=== PATIENT | male | born 1995 | race Caucasian/White ===

== ENCOUNTER 2017-08-16 21:28 | Emergency (ER) | payer BC, SELFPAY ==
[2017-08-16 21:35] VITALS: BP 161/102; PULSE 88; RESP 16; TEMP 36.7; O2SAT 99; BMI 35.7
--- NOTE | 2017-08-16 21:43 | CT_ITS ---
CT abdomen pelvis wo con CLINICAL INDICATION: Right-sided flank pain ITS.REASON: flank pain ORDERING PHYSICIAN: Lane Wisdom MD PATIENT AGE: 21 years COMPARISON: 08/16/2016 TECHNIQUE: Axial images obtained with sagittal and coronal reformats. PROCEDURE: Oral Contrast: None IV Contrast: None . FINDINGS: There are 3 small nodular opacities in the right middle lobe measuring up to 5 mm. This area was not imaged on the previous exam. Prior cholecystectomy without ductal dilatation. The liver, spleen, adrenal glands, pancreas, kidneys, ureters, appendix, and urinary bladder are unremarkable. No evidence of obstructing renal or ureteral calculi. No intestinal obstruction or free air. Unremarkable pelvis. No evidence of acute inflammatory change or abnormal fluid collection. No acute bony anomalies. There are mild degenerative changes in the lower thoracic spine IMPRESSION: No acute intra-abdominal or pelvic findings. No evidence of obstructing renal or ureteral calculi. Unremarkable appendix
--- NOTE | 2017-08-16 21:44 | XR_ITS ---
EXAM: XR lumbar spine 2-3V HISTORY: ITS.REASON: right lower back pain ORDERING PHYSICIAN: Lane Wisdom MD PATIENT AGE: 21 years COMPARISON: None FINDINGS: Normal alignment. No fracture or dislocation. No lytic or blastic change. No significant degenerative change. The disc spaces are preserved. IMPRESSION: Negative lumbar spine
[2017-08-16 21:51] LABS: Basophils % 0.5 % (0.1-2.0); Eosinophils # 0.2 K/mm3 (0.0-0.4); Eosinophils % 2.4 % (0.1-12.0); Hematocrit 46.1 % (42.0-52.0); Hemoglobin 15.6 g/dL (14.1-18.0); Lymphocytes # 2.9 K/mm3 (0.7-4.5); Lymphocytes % 35.6 K/mm3 (10-50); Mean Corpuscular HGB Conc 33.9 g/dL (31.8-35.4); Mean Corpuscular Hemoglobin 29.6 pg (27.0-31.2); Mean Corpuscular Volume 87.1 fl (80-94); Mean Platelet Volume 10.3 fl (7.4-10.4); Monocytes # 0.5 K/mm3 (0.1-1.0); Monocytes % 5.5 % (1.7-9.3); Neutrophils # 4.6 K/mm3 (1.8-7.8); Platelet Count 256 K/mm3 (142-424); Red Cell Distribution Width 12.6 % (11.5-17.5); White Blood Count 8.1 K/mm3 (4.8-10.8)
[2017-08-16 21:52] LABS: Microscopic, Urine URINE MICROSCOPIC (MICROSCOPIC)
[2017-08-16 21:53] LABS: Appearance,Urine CLEAR (Clear); Bilirubin,Urine Negative (Negative); Blood, Urine Negative (Negative); Color,Urine YELLOW (Yellow); Glucose,Urine (UA) Negative (Negative); Ketones,Urine Negative (Negative); Leukocyte Esterase,Urine Negative (Negative); Nitrate,Urine Negative (Negative); Protein,Urine Negative (Negative); Specific Gravity, Urine 1.015 (1.005-1.030); Urobilinogen,Urine 0.2 EU/dl (0.2)
[2017-08-16 22:04] LABS: Alanine Aminotransferase 63 U/L (12-78); Albumin Level 4.2 gm/dL (3.4-5.0); Albumin/Globulin Ratio 1.2 (1.1-1.8); Alkaline Phosphatase 95 U/L (46-116); Anion Gap 11.6 mEq/L (5-15); Aspartate Amino Transferase 24 U/L (15-37); Bilirubin,Total 0.4 mg/dL (0.2-1.0); Blood Urea Nitrogen 12 mg/dL (7-18); Calcium 8.9 mg/dL (8.5-10.1); Carbon Dioxide 29 mmol/L (21.0-32.0); Chloride 101 mmol/L (98-107); Creatinine Clearance Estimated 185 mL/min (0-300); Creatinine,Serum 1.16 mg/dL (0.70-1.30); Estimated Glomerular Filt Rate 79 ml/min (>60); GFR (African American) 96 ML/MIN (>60); Globulin 3.6 gm/dl (1.3-3.2); Glucose 108 mg/dL (74-106); Potassium 3.6 mmoL/L (3.5-5.1); Sodium 138 mmol/L (136-145); Total Protein,Serum 7.8 gm/dL (6.4-8.2)
[2017-08-16 22:04] LABS: Bacteria,Urine Trace /lpf; RBC,Urine Occasional #/hpf (0-3); Squamous Epithelial Cell,Urine Occasional #/hpf (0-5); WBC,Urine Occasional #/hpf (0-3)
--- NOTE | 2017-08-16 22:04 | PC.NURSE ---
patient to radiology at this time
--- NOTE | 2017-08-16 22:14 | PC.NURSE ---
pt back from radiology
[2017-08-16 22:30] VITALS: BP 145/80; PULSE 90; RESP 18; O2SAT 100
--- NOTE | 2017-08-16 22:48 | HMH.EDBACK ---
ED Disposition Clinical Impression: Strain of lumbar region Qualifiers: Encounter type: initial encounter Qualified Code(s): S39.012A - Strain of muscle, fascia and tendon of lower back, initial encounter Disposition: Home, Self-Care Condition on Discharge: Good Instructions: DI for Low Back Pain Referrals: Miryam Vo [Primary Care Provider] - - Critical Care Critical Care Time: No Attestation: On 08/16/17, the high probability of a clinically significant, sudden or life threatening deterioration of the following system(s) required my full and direct attention, intervention and personal management. The time I documented below is in addition to time spent performing reported procedures but includes the following listed in this critical care notation. Medical Decision Making - Medical Records Medical records reviewed: Yes: I reviewed the patient's medical records. Vital Signs: 08/16/17 21:35 08/16/17 22:30 Temperature 98.1 F Temperature Source Oral Pulse Rate [Right Brachial] 88 90 Respiratory Rate 16 18 Blood Pressure [Right Arm] 161/102 145/80 Blood Pressure Mean [Right Arm] 121 101 Blood Pressure Source [Right Arm] Automatic Cuff Blood Pressure Position [Right Arm] Sitting Right Lateral 02 Sat by Pulse Oximetry 99 100 Oxygen Delivery Method Room Air Room Air - Lab Data Lab results reviewed: Yes: I reviewed the patient's lab results. Lab Results 08/16/17 21:45: WBC 8.1, RBC 5.30, Hgb 15.6, Hct 46.1, MCV 87.1, MCH 29.6, MCHC 33.9, RDW 12.6, Plt Count 256, MPV 10.3, Neut % (Auto) 56.0, Lymph % (Auto) 35.6, [place] % (Auto) 5.5, Eos % (Auto) 2.4, Baso % (Auto) 0.5, Neut # (Auto) 4.6, Lymph # (Auto) 2.9, [place] # (Auto) 0.5, Eos # (Auto) 0.2, Baso # (Auto) 0.0 08/16/17 21:45: Sodium 138, Potassium 3.6, Chloride 101, Carbon Dioxide 29, Anion Gap 11.6, BUN 12, Creatinine 1.16, Estimated Creat Clear 185, Estimated GFR 79, Est GFR ( Amer) 96, Glucose 108 H, Calcium 8.9, Total Bilirubin 0.4, AST 24, ALT 63, Alkaline Phosphatase 95, Total Protein 7.8, Albumin 4.2, Globulin 3.6 H, Albumin/Globulin Ratio 1.2 08/16/17 21:50: Urine Color Yellow, Urine Appearance Clear, Urine pH 7.0, Ur Specific [place] 1.015, Urine Protein Negative, Urine Glucose (UA) Negative, Urine Ketones Negative, Urine Blood Negative, Urine Nitrate Negative, Urine Bilirubin Negative, Urine Urobilinogen 0.2, Ur Leukocyte Esterase Negative, Urine RBC Occasional, Urine WBC Occasional, Ur Squamous Epith Cells Occasional, Urine Bacteria Trace Result diagrams: 08/16/17 21:45 08/16/17 21:45 Orders (Tests/Meds): ORDERS Category Date Time Status CT abdomen pelvis wo con Stat Cat Scan 08/16/17 21:43 Taken Lumbar spine XR 2-3 views [XR lumbar spine 2-3V] Stat Exams 08/16/17 21:44 Taken - CT Data CT Scan: Abdomen, Pelvis Time Received: 22:[address] Reviewed: Yes: I have viewed the radiologist's interpretation Preliminary Findings: Normal/NAD - Ankit Inquiry Pt receiving controlled substance: No Back Pain HPI - General Chief Complaint: Back Pain/Injury Stated Complaint: pain lower right side back Time Seen by Provider: 08/16/17 22:48 Mode of Arrival: Ambulatory Source of Information: Patient, Parent(s), Medical Record Limitations: No Limitations Description of Symptoms (Recalled from ER Triage Doc. by RN): reports pain in the right lower side of back. denies any injury, reports he was sitting at his desk at work when the pain started this afternoon, reports it as sharp and stabbing. denies any other symptoms. - History of Present Illness HPI Narrative: acute onset of rt flank pain MD Complaint: back pain Onset (ago): hour(s) Duration: now resolved Similar Symptoms Previously: No Location: lumbar spine Severity: moderate Quality: sharp Context: unknown - Related Data Home Medications Medication Instructions Recorded Confirmed Lisinopril/Hydrochlorothiazide 1 tab PO DAILY 08/16/17 08/16/17 [Lisinopril
--- NOTE | 2017-08-16 22:55 | ED_ITS ---
ED Disposition Clinical Impression: Strain of lumbar region Qualifiers: Encounter type: initial encounter Qualified Code(s): S39.012A - Strain of muscle, fascia and tendon of lower back, initial encounter Disposition: Home, Self-Care Condition on Discharge: Good Instructions: DI for Low Back Pain Referrals: Miryam Vo [Primary Care Provider] - - Critical Care Critical Care Time: No Attestation: On 08/16/17, the high probability of a clinically significant, sudden or life threatening deterioration of the following system(s) required my full and direct attention, intervention and personal management. The time I documented below is in addition to time spent performing reported procedures but includes the following listed in this critical care notation. Medical Decision Making - Medical Records Medical records reviewed: Yes: I reviewed the patient's medical records. Vital Signs: 08/16/17 21:35 08/16/17 22:30 Temperature 98.1 F Temperature Source Oral Pulse Rate [Right Brachial] 88 90 Respiratory Rate 16 18 Blood Pressure [Right Arm] 161/102 145/80 Blood Pressure Mean [Right Arm] 121 101 Blood Pressure Source [Right Arm] Automatic Cuff Blood Pressure Position [Right Arm] Sitting Right Lateral 02 Sat by Pulse Oximetry 99 100 Oxygen Delivery Method Room Air Room Air - Lab Data Lab results reviewed: Yes: I reviewed the patient's lab results. Lab Results 08/16/17 21:45: WBC 8.1, RBC 5.30, Hgb 15.6, Hct 46.1, MCV 87.1, MCH 29.6, MCHC 33.9, RDW 12.6, Plt Count 256, MPV 10.3, Neut % (Auto) 56.0, Lymph % (Auto) 35.6 , [place] % (Auto) 5.5, Eos % (Auto) 2.4, Baso % (Auto) 0.5, Neut # (Auto) 4.6, Lymph # (Auto) 2.9, [place] # (Auto) 0.5, Eos # (Auto) 0.2, Baso # (Auto) 0.0 08/16/17 21:45: Sodium 138, Potassium 3.6, Chloride 101, Carbon Dioxide 29, Anion Gap 11.6, BUN 12, Creatinine 1.16, Estimated Creat Clear 185, Estimated GFR 79, Est GFR ( Amer) 96, Glucose 108 H, Calcium 8.9, Total Bilirubin 0.4, AST 24, ALT 63, Alkaline Phosphatase 95, Total Protein 7.8, Albumin 4.2, Globulin 3.6 H, Albumin/Globulin Ratio 1.2 08/16/17 21:50: Urine Color Yellow, Urine Appearance Clear, Urine pH 7.0, Ur Specific [place] 1.015, Urine Protein Negative, Urine Glucose (UA) Negative, Urine Ketones Negative, Urine Blood Negative, Urine Nitrate Negative, Urine Bilirubin Negative, Urine Urobilinogen 0.2, Ur Leukocyte Esterase Negative, Urine RBC Occasional, Urine WBC Occasional, Ur Squamous Epith Cells Occasional, Urine Bacteria Trace Result diagrams: 08/16/17 21:45 08/16/17 21:45 Orders (Tests/Meds): ORDERS Category Date Time Status CT abdomen pelvis wo con Stat Cat Scan 08/16/17 21:43 Taken Lumbar spine XR 2-3 views [XR lumbar spine 2-3V] Stat Exams 08/16/17 21:44 Taken - CT Data CT Scan: Abdomen, Pelvis Time Received: 22:[address] Reviewed: Yes: I have viewed the radiologist's interpretation Preliminary Findings: Normal/NAD - Ankit Inquiry Pt receiving controlled substance: No Back Pain HPI - General Chief Complaint: Back Pain/Injury Stated Complaint: pain lower right side back Time Seen by Provider: 08/16/17 22:48 Mode of Arrival: Ambulatory Source of Information: Patient, Parent(s), Medical Record Limitations: No Limitations Description of Symptoms (Recalled from ER Triage Doc. by RN): reports pain in the right lower side of back. denies any injury, reports he was sitting at his
[2017-08-16 22:56] VITALS: BP 161/92; PULSE 89; RESP 14; TEMP 36.6; O2SAT 99
== END 2017-08-16 23:02 | disposition home or self-care (01) ==
PROVIDERS: Emergency Provider Emergency Medicine; Family Provider Internal Medicine Adolescent Medicine; PCP Nurse Practitioner Family
DX: S39.012A Strain of muscle, fascia and tendon of lower back, initial encounter (principal); F17.210 Nicotine dependence, cigarettes, uncomplicated
CPT/HCPCS: 72100; 74176; 80053; 81001; 85025; 99283

== ENCOUNTER → 2017-09-12 18:47 | Outpatient (CLI) | payer BC, SELFPAY | PROVIDERS: PCP Nurse Practitioner Family; Visit Provider Nurse Practitioner Family | DX: R00.2 Palpitations (principal); I10 Essential (primary) hypertension | CPT/HCPCS: 93225; 93226 ==

== ENCOUNTER 2018-08-28 10:58 | Outpatient (RCR) | payer SELFPAY ==
--- NOTE | 2018-08-28 11:40 | HMH.OTOPEV ---
OT Inpatient Evaluation Rehab OT Outpatient Eval Start: 08/28/18 11:25 Freq: Status: Active Protocol: Document 08/28/18 11:26 TFRY (Rec: 08/28/18 11:40 TFRY [id number]) Electronically Signed By Jesusita Michaels OT 08/28/18 11:26 Outpatient Therapy Subjective History Subjective History Patient seen this date for skilled occupational therapy evaluation. Patient referred to occupational therapy as patient is status post right shoulder dislocation (3rd dislocation). Referred for ROM/stretching and scapular stabilization for a home program. Chief Complaint Pain Other Symptom Type Ache Dull Symptoms Relieved By Rest/Positioning Symptoms Aggravated By Physical Activity Prior Functional Limitations None Current Functional Limitations Reaching Lifting Housework Dressing Symptom Description Activity Dependent Level of pain today (0-10) 0 Pain scale - at its best (0-10) 0 Pain scale - at its worst (0-10) 4 Shoulder/Elbow Eval Shoulder Objective Measurements Shoulder ROM Right Shoulder Flexion Active Range of Motion 160 (degrees) Query Text: Shoulder Internal Rotation Active Range WFL in gravity elim of Motion (degrees) decreased ROM shoulder exam standard right Shoulder MMT Shoulder Strength Reason Not Measured Orthopedic Precautions Elbow Objective Measurements OT Outpatient Assessment Impairments Problems/Impairments Impaired Range of Motion Impaired Strength Impaired Lifting Impaired Dressing Impaired Shower/Bathing Impaired Household Care Impaired Recreational Activities Subjective C/O Pain Prognosis Rehab Potential Fair Comment Order for HEP only Clinical Impression Consistent with Diagnosis Yes Short Term Goals Number of Weeks 0 Skilled Nursing Goals Number of Weeks 0 Outpatient Therapy Plan of Care Treatment Plan May Include Therapeutic Exercise Including Home Yes Exercise Program Frequency Times per week 1 Duration Number of Weeks
== END 2018-08-30 09:00 | disposition home or self-care (01) ==
LOC: OT 10:58
PROVIDERS: Visit Provider Orthopaedic Surgery
DX: M24.411 Recurrent dislocation, right shoulder (principal)
CPT/HCPCS: 97110; 97165

== ENCOUNTER → 2018-09-06 12:57 | Outpatient (CLI) | payer OTHER, SELFPAY ==
--- NOTE | 2018-09-06 13:17 | IR_ITS ---
MR shoulder RT w con, IR arthrogram shoulder RT HISTORY:Recurrent dislocation, pain, limited range of motion ITS.REASON: Dislocation ORDERING PHYSICIAN: Lucy Downs MD PATIENT AGE: 23 years Comparison: None TECHNIQUE: Following obtaining informed consent and timeout procedure using fluoroscopic guidance, 22-gauge spinal needle was inserted into the right shoulder joint via the anterior approach. Approximately 15 mL's of a mixture of gadolinium, Optiray 320, and lidocaine was injected under fluoroscopy. The patient tolerated the procedure well without evidence of immediate complication. Patient was then sent to the MRI suite where routine arthrographic images were obtained. FINDINGS: Arthrogram: The arthrogram images have an unremarkable appearance. There is normal localization of contrast. No contrast in the subacromial region that would indicate rotator cuff tear. No evidence of adhesive capsulitis. MRI arthrogram: No evidence of rotator cuff tear. No subacromial stenosis. The supraspinatus, infraspinatus, subscapularis, and teres minor have an unremarkable appearance. There is a Hill-Sachs deformity along the posterior superolateral aspect of the humeral head. The bicipital tendon is in place. No obvious labral tear or [place] lesion. There is slight increase signal intensity within the posterior labrum superiorly however, this does not appear to represent a complete defect and is of questionable clinical significance. The superior glenohumeral ligament is not readily identified and suspected to be torn. IMPRESSION: 1. There is a Hill-Sachs deformity of the posterior superior lateral humeral head consistent with patient's prior history of dislocation. 2. No obvious labral tear or [place] lesion. 3. No evidence of rotator cuff tear 4. Possible tear of the superior glenohumeral ligament
== END ==
PROVIDERS: PCP Nurse Practitioner Family; Visit Provider Orthopaedic Surgery
DX: M24.419 Recurrent dislocation, unspecified shoulder (principal)
CPT/HCPCS: 73040; 73222; Q9967

== ENCOUNTER → 2018-09-29 09:15 | Outpatient (CLI) | payer OTHER, SELFPAY ==
[2018-09-29 09:56] LABS: Basophils # 0.1 K/mm3 (0-0.2); Eosinophils # 0.2 K/mm3 (0.0-0.4); Eosinophils % 2.1 % (0.1-12.0); Hemoglobin 15.3 g/dL (14.1-18.0); Lymphocytes # 2.8 K/mm3 (0.7-4.5); Lymphocytes % 32.1 % (10-50); Mean Corpuscular HGB Conc 33.9 g/dL (31.8-35.4); Mean Corpuscular Hemoglobin 28.1 pg (27.0-31.2); Mean Corpuscular Volume 82.7 fl (80-94); Mean Platelet Volume 9.8 fl (7.4-10.4); Monocytes # 0.6 K/mm3 (0.1-1.0); Monocytes % 6.5 % (1.7-9.3); Neutrophils # 5.1 K/mm3 (1.8-7.8); Neutrophils % 58.4 % (37.0-80.0); Platelet Count 303 K/mm3 (142-424); Red Blood Count 5.44 M/mm3 (4.60-6.20); Red Cell Distribution Width 13.5 % (11.5-17.5); White Blood Count 8.6 K/mm3 (4.8-10.8)
[2018-09-29 14:37] LABS: Alanine Aminotransferase 77 U/L (12-78); Albumin Level 4.5 gm/dL (3.4-5.0); Albumin/Globulin Ratio 1.4 (1.1-1.8); Anion Gap 12.4 mEq/L (5-15); Aspartate Amino Transferase 37 U/L (15-37); Bilirubin,Total 0.7 mg/dL (0.2-1.0); Blood Urea Nitrogen 11 mg/dL (7-18); Calcium 9.6 mg/dL (8.5-10.1); Carbon Dioxide 30 mmol/L (21.0-32.0); Chloride 102 mmol/L (98-107); Creatinine,Serum 1.02 mg/dL (0.70-1.30); Estimated Glomerular Filt Rate 91 ml/min (>60); GFR (African American) 110 ML/MIN (>60); Globulin 3.3 gm/dl (1.3-3.2); Glucose 81 mg/dL (74-106); Potassium 4.4 mmoL/L (3.5-5.1); Sodium 140 mmol/L (136-145); Total Protein,Serum 7.8 gm/dL (6.4-8.2)
[2018-09-29 14:47] LABS: Alkaline Phosphatase 88 U/L (46-116)
== END ==
PROVIDERS: Visit Provider Orthopaedic Surgery
DX: S49.91XA Unspecified injury of right shoulder and upper arm, initial encounter (principal)
CPT/HCPCS: 36415; 80053; 85025

== ENCOUNTER 2018-11-13 07:00 | Outpatient (RCR) | payer SELFPAY ==
--- NOTE | 2018-10-16 08:02 | HMH.OTOPEV ---
OT Inpatient Evaluation Rehab OT Outpatient Eval Start: 10/16/18 07:41 Freq: Status: Active Protocol: Document 10/16/18 07:42 TFRY (Rec: 10/16/18 08:01 TFRY [id number]) Electronically Signed By Jesusita Michaels, OT 10/16/18 07:42 Outpatient Therapy Subjective History Subjective History This is a 23 year old right handed male referred to occupational therapy as patient is status post right shoulder anterior labral repair and capsulorrhaphy on . Patient stated that he had multiple dislocations prior to having surgery. Chief Complaint Pain,Stiff Symptom Type Sharp Symptoms Relieved By Rest/Positioning Symptoms Aggravated By Physical Activity Prior Functional Limitations Reaching,Lifting,Housework Current Functional Limitations Reaching,Dressing,Driving Symptom Description Activity Dependent Level of pain today (0-10) 0 Pain scale - at its best (0-10) 0 Pain scale - at its worst (0-10) 5 Shoulder/Elbow Eval Shoulder Objective Measurements Palpation Tenderness tenderness shoulder exam standard right Shoulder Palpation Findings Tenderness swelling shoulder exam standard right Shoulder ROM Right Shoulder ROM Limitations Pain Shoulder Abduction Passive Range of 140 Motion (degrees) Shoulder Flexion Passive Range of Motion 140 (degrees) Shoulder External Rotation Passive Range 10 of Motion (degrees) Shoulder Internal Rotation Passive Range 65 of Motion (degrees) pain with passive ROM shoulder exam right standard decreased ROM shoulder exam standard right Shoulder MMT Shoulder Strength Reason Not Measured Orthopedic Precautions Elbow Objective Measurements OT Outpatient Assessment Impairments Problems/Impairments Palpation Tenderness,Impaired Range of Motion,Impaired Strength,Impaired Lifting, Impaired Dressing,Impaired Shower/Bathing,Impaired Household Care,Subjective C/O Pain Prognosis Rehab Potential Good Clinical Impression Consistent with Diagnosis Yes Short Term Goals Number of Weeks 3 Decreased Palpation Tenderness Yes: right shoulder Increase Range of Motion Yes: Right Shoulder PROM WFL except ER to 30 Increase Strength Yes: Right Shoulder Strength - 3/5 Imp
== END 2018-12-11 07:30 | disposition home or self-care (01) ==
LOC: OT 07:00
PROVIDERS: Visit Provider Orthopaedic Surgery
DX: M24.411 Recurrent dislocation, right shoulder (principal)
CPT/HCPCS: 97110; 97140; 97165

== ENCOUNTER 2020-08-09 13:47 | Emergency (ER) | payer OTHER, SELFPAY ==
[2020-08-09 13:50] VITALS: BP 147/87; PULSE 80; RESP 20; TEMP 36.6; O2SAT 99; BMI 33.7
--- NOTE | 2020-08-09 13:58 | XR_ITS ---
PROCEDURE: XR FOREARM LT 2V CLINICAL INDICATION: FALL Posttraumatic pain COMPARISON: CR XR WRIST LT MIN 3V from 08/09/2020 FINDINGS: No fracture or dislocation. No lytic or blastic change. There is normal mineralization. The joint spaces are well-preserved. No significant degenerative/arthritic changes. No erosive changes evident. Other findings:Ulnar minus variant IMPRESSION: No acute findings. Dictated by: Ghassan Rhodes MD 08/10/2020 07:34 Ghassan Rhodes MD in [place] 08/10/2020 07:34
--- NOTE | 2020-08-09 14:30 | HMH.EDUTC ---
[facility] [place] Disposition Clinical Impression: Left wrist sprain Qualifiers: Encounter type: initial encounter Qualified Code(s): S63.502A - Unspecified sprain of left wrist, initial encounter Disposition: Home, Self-Care Condition on Discharge: Good Instructions: DI for Wrist Sprain Additional Instructions: ice elevate splint follow up with otho tylenol or motrin as needed follow up with pcp Referrals: Miryam Vo [Primary Care Provider] - Elmer Sprague MD [Staff Physician] - Time of Disposition: 14:36 Medical Decision Making - Ankit Inquiry Pt receiving controlled substance: No Vital Signs: 08/09/20 13:50 Temperature 97.8 F Temperature Source Oral Pulse Rate [Right Brachial] 80 Respiratory Rate 20 Blood Pressure [Right Arm] 147/87 H Blood Pressure Mean [Right Arm] 107 Blood Pressure Source [Right Arm] Automatic Cuff Blood Pressure Position [Right Arm] Sitting 02 Sat by Pulse Oximetry 99 Oxygen Delivery Method Room Air Orders (Tests/Meds): ORDERS Category Date Time Status XR forearm LT 2V Stat Exams 08/09/20 13:58 Taken XR wrist LT min 3V Stat Exams 08/09/20 13:58 Taken [facility] [place] HPI - General Chief complaint: Urgent Treatment Center Stated complaint: [id number] left wrist,fall while eating Time Seen by Provider: 08/09/20 14:30 Mode of Arrival: Ambulatory Source of Information: Patient Limitations: No Limitations Description of Symptoms (Recalled from Triage Doc. by RN): PATIENT C/O INJURY TO LEFT FOREARM/WRIST AREA AFTER SLIPPING AND FALLING TODAY APPROX 1300. STATES PREVIOUS FRACTURE TO AREA HEENT Symptoms (Recalled from RN notes): No Resp Symptoms (Recalled from RN notes): No Skin Symptoms (Recalled from RN notes): No MS Symptoms (Recalled from RN notes): Yes Functional Status (Recalled from RN notes): WNL - History of Present Illness Provider Complaint: 24 yr old male presents for left wrist pain after slipping and falling today. pt states previous fx. - Related Data Home Medications Medication Instructions Recorded Confirmed Lisinopril/Hydrochlorothiazide 1 tab PO DAILY 08/16/17 11/03/18 [Lisinopril-Hctz 20-12.5 mg Tab] Amlodipine Besylate 5 mg PO DAILY 07/17/18 11/03/18 Fluoxetine HCl [Prozac 20mg 20 mg PO DAILY 07/17/18 11/03/18 Capsule] Metoprolol Succinate 50 mg PO DAILY 07/17/18 11/03/18 Previous Rx's Medication Instructions Recorded clindamycin HCL [Clindamycin HCl 300 mg PO Q6 7 Days #28 cap 08/29/19 300mg Cap] Allergies Allergy/AdvReac Type Severity Reaction Status Date / Time No Known Allergies Allergy Verified 11/03/18 13:31 - Worker's Comp Is this a Worker's Comp case?: No [facility] History - Hepatitis A Screen Drug use history?: No High risk sexual behaviors?: No History of sexually transmitted infection?: No Currently employed?: No Childcare worker?: No Do you have indoor plumbing?: Yes Do you have electricity?: Yes Attestation statement:: This patient has been screened for Hepatitis A risk factors. I have reviewed the patient's past medical history: Yes Medical History: Reports:: Anxiety, Depression, Hypertension Denies:: Cancer, Diabetes Mellitus Type 1, Diabetes Mellitus Type 2, Internal Pacemaker, MRSA, Seizures Other Medical History: Denies: Blood Transfusion Reaction Laterality Cases: Bilateral: Myringotomy (Ear Tubes), Tonsillectomy Other Surgeries: Yes: Cholecystectomy. No: Pacemaker Amputation: No Fractures: Yes (left wrist) - Social History Smoking Status: Current every day smoker Tobacco Type: cigarettes # Packs/Day (cigarettes): 1 Alcohol Intake: never Occupational Status: other Housing: house Household Members: spouse, children - Psychiatric History Pschychiatric History:: Reports:: Anxiety, Depression Family Hx:: Hypertension ROS Obtained: Yes Systems reviewed as appropriate & no additional complaints - Constitutional Constitutional: Reports system reviewed and no additional complaints,
[2020-08-09 14:37] VITALS: BP 147/87; PULSE 80; RESP 20; TEMP 36.6; O2SAT 99
== END 2020-08-09 14:40 | disposition home or self-care (01) ==
PROVIDERS: Emergency Provider Nurse Practitioner Family; PCP Nurse Practitioner Family
DX: S63.502A Unspecified sprain of left wrist, initial encounter (principal); W01.0XXA Fall on same level from slipping, tripping and stumbling without subsequent striking against object, initial encounter; Y92.9 Unspecified place or not applicable; I10 Essential (primary) hypertension; F41.8 Other specified anxiety disorders; F17.210 Nicotine dependence, cigarettes, uncomplicated; Z79.899 Other long term (current) drug therapy
CPT/HCPCS: 73090; 73110; 99202; G0463

== ENCOUNTER → 2020-08-18 14:48 | Outpatient (CLI) | payer OTHER, SELFPAY ==
--- NOTE | 2020-08-18 14:51 | XR_ITS ---
PROCEDURE: XR WRIST LT MIN 3V CLINICAL INDICATION: LT wrist pain COMPARISON: CR XR WRIST LT MIN 3V from 08/09/2020 FINDINGS: No fracture or dislocation. No lytic or blastic change. There is normal mineralization. The joint spaces are well-preserved. No significant degenerative/arthritic changes. No erosive changes evident. Other findings:None. IMPRESSION: No acute findings. Dictated by: Ghassan Rhodes MD 08/18/2020 15:40 Ghassan Rhodes MD in [place] 08/18/2020 15:41
== END ==
PROVIDERS: PCP Nurse Practitioner Family; Visit Provider Orthopaedic Surgery
DX: M25.532 Pain in left wrist (principal)
CPT/HCPCS: 73110

== ENCOUNTER → 2020-12-01 17:46 | Outpatient (CLI) | payer OTHER, SELFPAY ==
[2020-12-01 19:05] LABS: Alanine Aminotransferase 43 U/L (12-78); Albumin Level 4.9 g/dl (3.5-5.0); Albumin/Globulin Ratio 1.8 (1.1-1.8); Alkaline Phosphatase 74 U/L (38-126); Anion Gap 15.4 mEq/L (5-15); Aspartate Amino Transferase 38 U/L (17-59); Bilirubin,Total 1.1 mg/dl (0.2-1.3); Blood Urea Nitrogen 11 mg/dl (9-20); Calcium 9.5 mg/dl (8.4-10.2); Carbon Dioxide 31 mmol/L (22.0-30.0); Chloride 100 mmol/L (98-107); Estimated Glomerular Filt Rate 103 ml/min (>60); GFR (African American) 124 ML/MIN (>60); Globulin 2.7 g/dL (1.3-3.2); Glucose 60 mg/dl (74-100); Potassium 4.4 mmoL/L (3.5-5.1); Sodium 142 mmol/L (136-145); Total Protein,Serum 7.6 g/dl (6.3-8.2)
[2020-12-01 19:32] LABS: Thyroid Stimulating Hormone 2.25 uIU/mL (0.465-4.68)
== END ==
PROVIDERS: Visit Provider Internal Medicine Adolescent Medicine
DX: E16.2 Hypoglycemia, unspecified (principal); I10 Essential (primary) hypertension
CPT/HCPCS: 80053; 83036; 84443

== ENCOUNTER 2021-04-26 20:24 | Emergency (ER) | payer OTHER, SELFPAY ==
[2021-04-26 20:21] VITALS: BP 133/90; PULSE 87; RESP 18; TEMP 36.8; O2SAT 98; BMI 34.9
--- NOTE | 2021-04-26 20:28 | CT_ITS ---
PROCEDURE INFORMATION: Exam: CT Abdomen And Pelvis With Contrast Exam date and time: 04/26/2021 8:28 PM Age: 25 years old Clinical indication: Abdominal pain; Localized; Right lower quadrant (rlq); Prior surgery; Surgery date: 6+ months; Surgery type: Gb; Additional info: Abdominal pain RT low quad TECHNIQUE: Imaging protocol: Computed tomography of the abdomen and pelvis with contrast. Radiation optimization: All CT scans at this facility use at least one of these dose optimization techniques: automated exposure control; mA and/or kV adjustment per patient size (includes targeted exams where dose is matched to clinical indication); or iterative reconstruction. Contrast material: ISOVUE; Contrast volume: 75 ml; Contrast route: IV; COMPARISON: ABDPELWO CT abdomen pelvis wo con 08/16/2017 10:02 PM FINDINGS: Liver: Normal. No mass. Gallbladder and bile ducts: Cholecystectomy. Pancreas: Normal. No ductal dilation. Spleen: Normal. No splenomegaly. Adrenal glands: Normal. No mass. Kidneys and ureters: Normal. No hydronephrosis. Stomach and bowel: Unremarkable. No obstruction. No mucosal thickening. Appendix: Normal appendix. Intraperitoneal space: Unremarkable. No free air. No significant fluid collection. Vasculature: Unremarkable. No abdominal aortic aneurysm. Lymph nodes: Unremarkable. No enlarged lymph nodes. Urinary bladder: Unremarkable as visualized. Reproductive: Unremarkable as visualized. Bones/joints: Unremarkable. No acute fracture. Soft tissues: Unremarkable. IMPRESSION: No acute findings.
[2021-04-26 20:34] LABS: Microscopic, Urine URINE MICROSCOPIC (MICROSCOPIC)
[2021-04-26 20:41] LABS: Chloride 105 mmol/L (98-107); Potassium 3.7 mmoL/L (3.5-5.1); Sodium 141 mmol/L (136-145)
[2021-04-26 20:42] LABS: Basophils # 0.1 K/mm3 (0-0.2); Basophils % 1.3 % (0.1-2.0); Eosinophils # 0.2 K/mm3 (0.0-0.4); Eosinophils % 2.9 % (0.1-12.0); Hematocrit 44.9 % (42.0-52.0); Hemoglobin 15.5 g/dL (14.1-18.0); Lymphocytes # 2.3 K/mm3 (0.7-4.5); Lymphocytes % 31.4 % (10-50); Mean Corpuscular HGB Conc 34.4 g/dL (31.8-35.4); Mean Corpuscular Hemoglobin 29.5 pg (27.0-31.2); Mean Corpuscular Volume 85.6 fl (80-94); Mean Platelet Volume 10.2 fl (7.4-10.4); Monocytes # 0.5 K/mm3 (0.1-1.0); Monocytes % 6.8 % (1.7-9.3); Neutrophils # 4.2 K/mm3 (1.8-7.8); Neutrophils % 57.5 % (37.0-80.0); Platelet Count 274 K/mm3 (142-424); Red Blood Count 5.24 M/mm3 (4.60-6.20); Red Cell Distribution Width 13.1 % (11.5-17.5); White Blood Count 7.4 K/mm3 (4.8-10.8)
[2021-04-26 20:43] LABS: Blood Urea Nitrogen 7 mg/dl (9-20); Creatinine Clearance Estimated 254 mL/min (50-200); Estimated Glomerular Filt Rate 118 ml/min (>60); GFR (African American) 143 ML/MIN (>60)
[2021-04-26 20:44] LABS: Appearance,Urine CLEAR (Clear); Bilirubin,Urine Negative (Negative); Blood, Urine Negative (Negative); Color,Urine YELLOW (Yellow); Glucose,Urine (UA) Negative (Negative); Ketones,Urine Negative (Negative); Leukocyte Esterase,Urine Negative (Negative); Nitrate,Urine Negative (Negative); PH,Urine 6.5 (5.0-8.5); Protein,Urine Negative (Negative); Specific Gravity, Urine 1.025 (1.005-1.030); Urobilinogen,Urine 0.2 EU/dl (0.2)
[2021-04-26 20:44] LABS: Alanine Aminotransferase 60 U/L (12-78); Albumin Level 4.6 g/dl (3.5-5.0); Albumin/Globulin Ratio 1.7 (1.1-1.8); Alkaline Phosphatase 76 U/L (38-126); Anion Gap 12.7 mEq/L (5-15); Aspartate Amino Transferase 49 U/L (17-59); Bilirubin,Total 0.9 mg/dl (0.2-1.3); Calcium 9.1 mg/dl (8.4-10.2); Carbon Dioxide 27 mmol/L (22.0-30.0); Globulin 2.7 g/dL (1.3-3.2); Glucose 95 mg/dl (74-100); Lipase 83 U/L (23-300); Total Protein,Serum 7.3 g/dl (6.3-8.2)
[2021-04-26 20:46] LABS: WBC,Urine Occasional #/hpf (0-3)
[2021-04-26 21:00] LABS: Lactic Acid 1.2 mmol/L (0.7-2.1)
--- NOTE | 2021-04-26 21:30 | HMH.EDGENADL ---
ED Disposition Clinical Impression: Abdominal pain Qualifiers: Abdominal location: right upper quadrant Qualified Code(s): R10.11 - Right upper quadrant pain Disposition: Home, Self-Care Condition on Discharge: Good Instructions: Acute Abdominal Pain Additional Instructions: Please continue supportive care at home including Tylenol, ibuprofen and Zofran for nausea. Continue to drink plenty of fluids. If your condition worsens or any other concerns arise, please return to the emergency department. Otherwise, follow-up with your primary care doctor within a week for reassessment. Prescriptions: Ondansetron [Zofran 4mg ODT] 4 mg PO TIDP PRN 3 Days #9 tab PRN Reason: Nausea Transmission Status: Pending to [facility] Referrals: Carlos Eduardo Carlos MD [Primary Care Provider] - - Critical Care Critical Care Time: No Attestation: On 04/26/21, the high probability of a clinically significant, sudden or life threatening deterioration of the following system(s) required my full and direct attention, intervention and personal management. The time I documented below is in addition to time spent performing reported procedures but includes the following listed in this critical care notation. Medical Decision Making - Medical Records Medical records reviewed: Yes: I reviewed the patient's medical records. - Ankit Inquiry Pt receiving controlled substance: No Vital Signs: 04/26/21 20:21 Temperature 98.2 F Temperature Source Oral Pulse Rate [Apical] 87 Respiratory Rate 18 Blood Pressure [Right Arm] 133/90 Blood Pressure Mean [Right Arm] 104 Blood Pressure Source [Right Arm] Automatic Cuff Blood Pressure Position [Right Arm] Sitting 02 Sat by Pulse Oximetry 98 Oxygen Delivery Method Room Air - Lab Data Lab results reviewed: Yes: I reviewed the patient's lab results. Lab Results 04/26/21 20:15: WBC 7.4, RBC 5.24, Hgb 15.5, Hct 44.9, MCV 85.6, MCH 29.5, MCHC 34.4, RDW 13.1, Plt Count 274, MPV 10.2, Neut % (Auto) 57.5, Lymph % (Auto) 31.4, [place] % (Auto) 6.8, Eos % (Auto) 2.9, Baso % (Auto) 1.3, Neut # (Auto) 4.2, Lymph # (Auto) 2.3, [place] # (Auto) 0.5, Eos # (Auto) 0.2, Baso # (Auto) 0.1 04/26/21 20:15: Sodium 141, Potassium 3.7, Chloride 105, Carbon Dioxide 27, Anion Gap 12.7, BUN 7 L, Creatinine 0.80, Estimated Creat Clear 254, Estimated GFR 118, Est GFR ( Amer) 143, Glucose 95, Calcium 9.1, Total Bilirubin 0.9, AST 49, ALT 60, Alkaline Phosphatase 76, Total Protein 7.3, Albumin 4.6, Globulin 2.7, Albumin/Globulin Ratio 1.7, Lipase 83 04/26/21 20:27: Urine Color Yellow, Urine Appearance Clear, Urine pH 6.5, Ur Specific [place] 1.025, Urine Protein Negative, Urine Glucose (UA) Negative, Urine Ketones Negative, Urine Blood Negative, Urine Nitrate Negative, Urine Bilirubin Negative, Urine Urobilinogen 0.2, Ur Leukocyte Esterase Negative, Urine WBC Occasional, Ur Squamous Epith Cells 3-5 04/26/21 20:34: Lactate 1.2 Result diagrams: 04/26/21 20:15 04/26/21 20:15 Orders (Tests/Meds): ED MEDICATIONS Generic Name Dose Route Start Last Admin Trade Name Freq PRN Reason Stop Dose Admin Lactated Ringer's 500 mls @ 999 mls/hr 04/26/21 20:45 04/26/21 20:48 Lactated Ringer's 1000 Ml Bag IV 04/26/21 21:15 500 mls/hr .Q31M ADELSO Administration Discontinued Medications Generic Name Dose Route Start Last Admin Trade Name Freq PRN Reason Stop Dose Admin Morphine Sulfate 4 mg 04/26/21 20:29 04/26/21 20:49 Morphine 4mg/Ml Syringe IV 04/26/21 20:30 4 mg ONCE ONE Administration - CT Data CT Scan: Abdomen, Pelvis Time Received: 21:15 Findings Narrative: COMPARISON: [facility] CT abdomen pelvis wo con 08/16/2017 10:02 PM FINDINGS: Liver: Normal. No mass. Gallbladder and bile ducts: Cholecystectomy. Pancreas: Normal. No ductal dilation. Spleen: Normal. No splenomegaly. Adrenal glands: Normal. No mass. Kidneys and ureters: Normal. No hydronephrosis. Stomach and noemi
[2021-04-26 21:51] VITALS: BP 135/78; PULSE 88; RESP 18; TEMP 36.8; O2SAT 99
== END 2021-04-26 21:53 | disposition home or self-care (01) ==
PROVIDERS: Emergency Provider Emergency Medicine; PCP Internal Medicine Adolescent Medicine
DX: R10.11 Right upper quadrant pain (principal); R10.32 Left lower quadrant pain; F41.8 Other specified anxiety disorders; I10 Essential (primary) hypertension; F17.210 Nicotine dependence, cigarettes, uncomplicated
CPT/HCPCS: 74177; 80053; 81001; 83605; 83690; 85025; 96365; 96375; 99283; Q9967

== ENCOUNTER 2021-08-15 22:03 | Emergency (ER) | payer OTHER, SELFPAY ==
[2021-08-15 22:05] VITALS: BP 148/84; PULSE 108; RESP 18; TEMP 37; O2SAT 98; BMI 34.9
[2021-08-15 22:21] VITALS: BMI 33.9
--- NOTE | 2021-08-15 22:22 | CT_ITS ---
PROCEDURE INFORMATION: Exam: CT Abdomen And Pelvis With Contrast Exam date and time: 08/15/2021 10:22 PM Age: 25 years old Clinical indication: Abdominal pain; Localized; Right lower quadrant (rlq); Prior surgery; Surgery date: 6+ months; Surgery type: Gb; Additional info: Rlq abd pain n/v TECHNIQUE: Imaging protocol: Computed tomography of the abdomen and pelvis with contrast. Radiation optimization: All CT scans at this facility use at least one of these dose optimization techniques: automated exposure control; mA and/or kV adjustment per patient size (includes targeted exams where dose is matched to clinical indication); or iterative reconstruction. Contrast material: ISOVUE; Contrast volume: 75 ml; Contrast route: IV; COMPARISON: CT ABDOMEN PELVIS W CON 04/26/2021 9:00 PM FINDINGS: Liver: There is diffuse hypoattenuation of the liver compatible with mild hepatic steatosis. Gallbladder and bile ducts: There are surgical clips within the gallbladder fossa. Pancreas: Normal. No ductal dilation. Spleen: Normal. No splenomegaly. Adrenal glands: Normal. No mass. Kidneys and ureters: Normal. No hydronephrosis. Stomach and bowel: Unremarkable. No obstruction. No mucosal thickening. Appendix: No evidence of appendicitis. Intraperitoneal space: Unremarkable. No free air. No significant fluid collection. Vasculature: Unremarkable. No abdominal aortic aneurysm. Lymph nodes: Left upper quadrant multiple prominent mesenteric nodes measuring greater than 5 mm in short axis can be seen with mild infectious or inflammatory enteritis. Urinary bladder: Unremarkable as visualized. Reproductive: Unremarkable as visualized. Bones/joints: Unremarkable. No acute fracture. Soft tissues: Normal. IMPRESSION: Left upper quadrant multiple prominent mesenteric nodes measuring greater than 5 mm in short axis can be seen with mild infectious or inflammatory enteritis.
[2021-08-15 22:40] LABS: Basophils # 0.2 K/mm3 (0-0.2); Basophils % 1.4 % (0.1-2.0); Eosinophils # 0.2 K/mm3 (0.0-0.4); Eosinophils % 1.1 % (0.1-12.0); Hematocrit 50.3 % (42.0-52.0); Hemoglobin 16.7 g/dL (14.1-18.0); Lymphocytes % 6.5 % (10-50); Mean Corpuscular HGB Conc 33.3 g/dL (31.8-35.4); Mean Corpuscular Volume 87.2 fl (80-94); Mean Platelet Volume 10.5 fl (7.4-10.4); Monocytes # 0.8 K/mm3 (0.1-1.0); Monocytes % 5.2 % (1.7-9.3); Neutrophils # 13.4 K/mm3 (1.8-7.8); Neutrophils % 85.8 % (37.0-80.0); Platelet Count 323 K/mm3 (142-424); Red Blood Count 5.77 M/mm3 (4.60-6.20); Red Cell Distribution Width 13.1 % (11.5-17.5); White Blood Count 15.6 K/mm3 (4.8-10.8)
--- NOTE | 2021-08-15 22:42 | HMH.EDNVD ---
ED Disposition Clinical Impression: Enteritis due to Norovirus, SIRS (systemic inflammatory response syndrome) Disposition: Home, Self-Care Condition on Discharge: Good Instructions: DI for Norovirus Infection Additional Instructions: see pcp for follow up and fluids Referrals: Silvio Roberts MD [Primary Care Provider] - - Critical Care Critical Care Time: No Attestation: On 08/15/21, the high probability of a clinically significant, sudden or life threatening deterioration of the following system(s) required my full and direct attention, intervention and personal management. The time I documented below is in addition to time spent performing reported procedures but includes the following listed in this critical care notation. Medical Decision Making - Medical Records Medical records reviewed: Yes: I reviewed the patient's medical records. - Ankit Inquiry Pt receiving controlled substance: No Vital Signs: 08/15/21 22:05 Temperature 98.6 F Temperature Source Oral Pulse Rate [Apical] 108 H Respiratory Rate 18 Blood Pressure [Right Arm] 148/84 H Blood Pressure Mean [Right Arm] 105 Blood Pressure Source [Right Arm] Automatic Cuff Blood Pressure Position [Right Arm] Sitting 02 Sat by Pulse Oximetry 98 Oxygen Delivery Method Room Air - Lab Data Lab results reviewed: Yes: I reviewed the patient's lab results. Lab Results 08/15/21 22:00: Urine Color Yellow, Urine Appearance Clear, Urine pH 5.5, Ur Specific [place] >= 1.030, Urine Protein 1+, Urine Glucose (UA) Negative, Urine Ketones Negative, Urine Blood Negative, Urine Nitrate Negative, Urine Bilirubin Negative, Urine Urobilinogen 0.2, Ur Leukocyte Esterase Negative, Urine WBC 3-5, Ur Squamous Epith Cells Occasional, Amorphous Sediment Trace, Hyaline Casts Occasional, Urine Mucus 4+ 08/15/21 22:25: WBC 15.6 H, RBC 5.77, Hgb 16.7, Hct 50.3, MCV 87.2, MCH 29.0, MCHC 33.3, RDW 13.1, Plt Count 323, MPV 10.5 H, Neut % (Auto) 85.8 H, Lymph % (Auto) 6.5 L, [place] % (Auto) 5.2, Eos % (Auto) 1.1, Baso % (Auto) 1.4, Neut # (Auto) 13.4 H, Lymph # (Auto) 1.0, [place] # (Auto) 0.8, Eos # (Auto) 0.2, Baso # (Auto) 0.2, Total Counted 100, Neutrophils % (Manual) 78 H, Band Neutrophils % 10.0 H, Lymphocytes % (Manual) 11, Monocytes % (Manual) 1 L, Platelet Estimate Normal, RBC Morphology Normal, ESR 2 08/15/21 22:25: Sodium 140, Potassium 4.1, Chloride 105, Carbon Dioxide 24, Anion Gap 15.1 H, BUN 12, Creatinine 0.80, Estimated Creat Clear 226, Estimated GFR 118, Est GFR ( Amer) 143, Glucose 118 H, Calcium 9.1, Total Bilirubin 0.9, AST 41, ALT 66, Alkaline Phosphatase 76, C-Reactive Protein 1.3, Total Protein 8.1, Albumin 5.0, Globulin 3.1, Albumin/Globulin Ratio 1.6, Amylase 87, Procalcitonin 0.095 08/15/21 22:25: Lactate 1.5 08/15/21 22:25: Lipase 134 08/15/21 23:00: Stl Aeromonas (PCR) Not detected, Stl C. cayetanensis PCR Not detected, Stool Rotavirus (PCR) Not detected, Stl Adenov F 40/41 PCR Not detected, Stool Astrovirus (PCR) Not detected, Stool Campylobacter PCR Not detected, Stl C.difficile Tox PCR Not detected, Stool Cryptosporidium PCR Not detected, Stl E.coli Shiga Tox PCR Not detected, Stool E coli O157 PCR Not detected, Stl Enterotoxigenic E PCR Not detected, Stool EPEC (PCR) Not detected, Stool EAEC (PCR) Not detected, Stl E. histolytica PCR Not detected, Stool Giardia Lamblia PCR Not detected, Stool Salmonella PCR Not detected, Stool Sapovirus (PCR) Not detected, Stl P. shigelloides PCR Not detected, Stl Shigella/EIEC PCR Not detected, St Y.enterocolitica PCR Not detected, Stool Vibrio (PCR) Not detected, Stl Vibrio cholerae PCR Not detected, Stl Norovirus GI/GII PCR Detected A Result diagrams: 08/15/21 22:25 08/15/21 22:25 Orders (Tests/Meds): ED MEDICATIONS Generic Name Dose Route Start Last Admin Trade Name Freq PRN Reason Stop Dose Admin Sodium Chloride 1,000 mls @ 999 mls/hr 08/15/21 22:30 08/15/21 22:34 Sod Chlor 0.9% 1000ml Bag IV 08/15/21 23:30
[2021-08-15 22:44] LABS: MANUAL DIFFERENTIAL MANUAL DIFFERENTIAL (MANUAL DIFF)
[2021-08-15 22:47] LABS: Alanine Aminotransferase 66 U/L (12-78); Albumin/Globulin Ratio 1.6 (1.1-1.8); Alkaline Phosphatase 76 U/L (38-126); Amylase 87 U/L (30-110); Anion Gap 15.1 mEq/L (5-15); Aspartate Amino Transferase 41 U/L (17-59); Bilirubin,Total 0.9 mg/dl (0.2-1.3); Blood Urea Nitrogen 12 mg/dl (9-20); Calcium 9.1 mg/dl (8.4-10.2); Carbon Dioxide 24 mmol/L (22.0-30.0); Chloride 105 mmol/L (98-107); Creatinine Clearance Estimated 226 mL/min (50-200); Estimated Glomerular Filt Rate 118 ml/min (>60); GFR (African American) 143 ML/MIN (>60); Globulin 3.1 g/dL (1.3-3.2); Glucose 118 mg/dl (74-100); Lactic Acid 1.5 mmol/L (0.7-2.1); Lipase 134 U/L (23-300); Potassium 4.1 mmoL/L (3.5-5.1); Sodium 140 mmol/L (136-145); Total Protein,Serum 8.1 g/dl (6.3-8.2)
[2021-08-15 22:52] LABS: C-Reactive Protein 1.3 mg/L (0-4)
[2021-08-15 22:55] LABS: Microscopic, Urine URINE MICROSCOPIC (MICROSCOPIC)
[2021-08-15 22:55] LABS: Lymphocytes % 11 % (10-50); Monocytes % 1 % (2-9); Neutrophils % 78 % (42-76); Platelet Estimate Normal; RBC Morphology Normal; Total Cells Counted 100
[2021-08-15 22:59] LABS: Appearance,Urine CLEAR (Clear); Bilirubin,Urine Negative (Negative); Blood, Urine Negative (Negative); Color,Urine YELLOW (Yellow); Glucose,Urine (UA) Negative (Negative); Ketones,Urine Negative (Negative); Leukocyte Esterase,Urine Negative (Negative); Nitrate,Urine Negative (Negative); PH,Urine 5.5 (5.0-8.5); Protein,Urine 1+ (Negative); Specific Gravity, Urine >= 1.030 (1.005-1.030); Urobilinogen,Urine 0.2 EU/dl (0.2)
[2021-08-15 23:06] LABS: Procalcitonin 0.095 ng/mL (0.0-2.0)
[2021-08-15 23:06] LABS: Amorphous Sediment,Urine Trace /lpf; Hyaline Casts,Urine Occasional #/lpf (0); Mucus,Urine 4+ /lpf; Squamous Epithelial Cell,Urine Occasional #/hpf (0-5)
[2021-08-15 23:07] LABS: Adenovirus F 40/41, stool Not Detected (NotDetected); Astrovirus Not Detected (NotDetected); Campylobacter Not Detected (NotDetected); Clostridium Difficile A/B, PCR Not Detected (NotDetected); Cryptosporidium Not Detected (NotDetected); Cyclospora Cayetanesis Not Detected (NotDetected); Entamoeba histolytica Not Detected (NotDetected); Enteroaggregative E coli Not Detected (NotDetected); Enteropathogenic E coli Not Detected (NotDetected); Enterotoxigenic E coli Not Detected (NotDetected); Giardia lamblia Not Detected (NotDetected); Plesimonas Shigalloides, PCR Not Detected (NotDetected); Rotavirus A Not Detected (NotDetected); Salmonella, PCR Not Detected (NotDetected); Sapovirus Not Detected (NotDetected); Shiga-like toxin E coli Not Detected (NotDetected); Shigella Enterovasive E coli Not Detected (NotDetected); Vibrio Cholerae Not Detected (NotDetected); Vibrio, PCR Not Detected (NotDetected); Yersinia Entercolitica, PCR Not Detected (NotDetected)
[2021-08-15 23:08] LABS: Erythrocyte Sedimentation Rate 2 mm/hr (0-15)
[2021-08-16 00:56] LABS: Norovirus Detected (NotDetected)
[2021-08-16 01:06] VITALS: BP 135/78; PULSE 80; RESP 18; TEMP 36.9; O2SAT 97
== END 2021-08-16 01:16 | disposition home or self-care (01) ==
PROVIDERS: Emergency Provider Emergency Medicine; PCP Internal Medicine Adolescent Medicine
DX: K52.9 Noninfective gastroenteritis and colitis, unspecified (principal); R65.10 Systemic inflammatory response syndrome (SIRS) of non-infectious origin without acute organ dysfunction; M54.50 Low back pain, unspecified; R10.9 Unspecified abdominal pain; I10 Essential (primary) hypertension; F32.A Depression, unspecified; F41.9 Anxiety disorder, unspecified; F17.210 Nicotine dependence, cigarettes, uncomplicated; Z79.899 Other long term (current) drug therapy
CPT/HCPCS: 74177; 80053; 81001; 82150; 83605; 83690; 84145; 85007; 85025; 85651; 86140; 87507; 96361; 96365; 96366; 96374; 96375; 99284; J2405; Q9967

== ENCOUNTER 2021-11-06 08:22 | Emergency (ER) | payer OTHER, SELFPAY ==
[2021-11-06 08:23] VITALS: BP 151/88; PULSE 100; RESP 16; TEMP 37.1; O2SAT 98; BMI 36.1
--- NOTE | 2021-11-06 08:46 | HMH.EDGENADL ---
ED Disposition Clinical Impression: Sinusitis Disposition: Home, Self-Care Condition on Discharge: Good Instructions: Sinusitis Prescriptions: Amoxicillin/Potassium Clav [Augmentin 500mg tab] 1 tab PO TID 7 Days #21 tab Transmission Status: Pending to [facility] Oxymetazoline HCl 15 ml NS BID 3 Days ml Prescription Printed Referrals: Silvio Roberts MD [Primary Care Provider] - - Critical Care Critical Care Time: No Attestation: On 11/06/21, the high probability of a clinically significant, sudden or life threatening deterioration of the following system(s) required my full and direct attention, intervention and personal management. The time I documented below is in addition to time spent performing reported procedures but includes the following listed in this critical care notation. Medical Decision Making - Ankit Inquiry Pt receiving controlled substance: No Vital Signs: 11/06/21 08:23 Temperature 98.7 F Temperature Source Oral Pulse Rate [Radial] 100 H Respiratory Rate 16 Blood Pressure [Right Arm] 151/88 H Blood Pressure Mean [Right Arm] 109 Blood Pressure Position [Right Arm] Sitting 02 Sat by Pulse Oximetry 98 Oxygen Delivery Method Room Air Medical Decision Narrative: Differential diagnosis includes but is not limited to acute bacterial sinusitis, acute viral sinusitis, allergic rhinitis. Pt did not does not have signs of meningismus or meningitis, encephalitis, is alert and oriented, no signs of orbital cellulitis or preorbital cellulitis. No trouble with breathing, no chest pain. Hx and exam consistent with acute bacterial sinusitis. Will prescribe outpt abx course as well as nasal decongestant afrin. Pt offered flu/covid testing but does not want here in ED. Given strict ED return precautions. General Adult HPI - General Chief complaint: PAIN Stated complaint: sinus pressure, eye swelling Time Seen by Provider: 11/06/21 08:30 Mode of Arrival: Ambulatory Limitations: No Limitations Description of Symptoms (Recalled from ER Triage Doc. by RN): TO ED PER [employer] CAR WITH C/O SINUS PRESSURE, FEVER STARTING TUESDAY. PT STATES PAIN RT SIDE WITH RT SIDE EYE SWELLING, TEMP OF 103 THIS AM TOOK TYLENOL AT 6AM. PT STATES NASAL DRIANAGE IS CLEAR. - History of Present Illness HPI narrative: 26-year-old male presents for evaluation of right-sided headache. Patient states he has had a right-sided headache that started around his right face and radiates to the right side of his head this morning. It was accompanied by a fever up to 103 Fahrenheit today that improved after taking Tylenol. He also noticed some swelling around his right thigh and right face associated with clear drainage from his right eye this morning that resolved after application of a warm compress to his right eye. Patient states he has had a cough as well as some nasal congestion and trouble smelling the last 3 to 4 days. He works at a assisted. States he has had multiple COVID test in the last 24 to 48 hours that were negative. - Related Data Home Medications Medication Instructions Recorded Confirmed Lisinopril/Hydrochlorothiazide 1 tab PO DAILY 08/16/17 08/18/20 [Lisinopril-Hctz 20-12.5 mg Tab] Amlodipine Besylate 5 mg PO DAILY 07/17/18 08/18/20 Fluoxetine HCl [Prozac 20mg 20 mg PO DAILY 07/17/18 08/18/20 Capsule] Metoprolol Succinate 50 mg PO DAILY 07/17/18 08/18/20 Previous Rx's Medication Instructions Recorded clindamycin HCL [Clindamycin HCl 300 mg PO Q6 7 Days #28 cap 08/29/19 300mg Cap] Ondansetron [Zofran 4mg ODT] 4 mg PO TIDP PRN 3 Days #9 tab 04/26/21 Ondansetron [Zofran 4mg ODT] 4 mg PO TIDP PRN #15 tab 08/16/21 Amoxicillin/Potassium Clav 1 tab PO TID 7 Days #21 tab 11/06/21 [Augmentin 500mg tab] Oxymetazoline HCl 15 ml NS BID 3 Days ml 11/06/21 Allergies Allergy/AdvReac Type Severity Reaction Status Date / Time No Known Allergies Allergy Verified 0
[2021-11-06 09:24] VITALS: BP 126/74; PULSE 78; RESP 16; TEMP 36.6; O2SAT 98
== END 2021-11-06 09:30 | disposition home or self-care (01) ==
PROVIDERS: Emergency Provider Student in an Organized Health Care Education/Training Program; PCP Internal Medicine Adolescent Medicine
DX: J01.90 Acute sinusitis, unspecified (principal); I10 Essential (primary) hypertension; F41.9 Anxiety disorder, unspecified; F32.A Depression, unspecified; Z72.0 Tobacco use; Z82.49 Family history of ischemic heart disease and other diseases of the circulatory system
CPT/HCPCS: 99282

== ENCOUNTER 2022-10-27 14:48 | Emergency (ER) | payer OTHER, SELFPAY ==
[2022-10-27 14:48] VITALS: BP 131/86; PULSE 77; RESP 18; TEMP 37; O2SAT 97; BMI 37.2
[2022-10-27 16:07] VITALS: BP 131/86; PULSE 77; RESP 18; TEMP 37
--- NOTE | 2022-10-27 18:37 | EXP.UTC ---
Discharge Plan Disposition Patient Disposition: Home, Self-Care Condition: Good Prescriptions Prescriptions: No Action metoprolol succinate 50 MG tablet extended release 24 hr 50 mg PO DAILY amlodipine 5 MG tablet 5 mg PO DAILY fluoxetine 20 MG capsule 20 mg PO DAILY clindamycin HCl 300 MG capsule 300 mg PO Q6 7 Days Qty: 28 0RF ondansetron 4 MG tablet,disintegrating 4 mg PO TIDP PRN (Reason: Nausea) 3 Days Qty: 9 0RF lisinopril-hydrochlorothiazide 1 EACH tablet 1 tab PO DAILY ondansetron 4 MG tablet,disintegrating 4 mg PO TIDP PRN (Reason: Nausea And Vomiting) Qty: 15 0RF amoxicillin-pot clavulanate 1 EACH tablet 1 tab PO TID 7 Days Qty: 21 0RF oxymetazoline 30 ML spray,non-aerosol 15 ml NS BID 3 Days 0RF Rx Instructions: instill up to twice a day through nostril, stop use after 3 days Referrals Follow up/Referrals: Provider,Referral, MD [Primary Care Provider] - See instructions Clinical Impressions Clinical Impression: Nausea & vomiting Discharge ED Provider: Jamila Sible[place] [facility] [place] General Stated complaint: Vomiting Mode of Arrival: Ambulatory Source of Information: Patient Limitations: No Limitations Time Seen by Provider: 10/27/22 14:50 Description of Symptoms (Recalled from Triage Doc. by RN): pt c/o n/v/d after eating x2-3wks. pt has not had any n/v/d today. pt has an appt with his pcp in the am. HEENT Symptoms (Recalled from RN notes): No Resp Symptoms (Recalled from RN notes): No Skin Symptoms (Recalled from RN notes): No MS Symptoms (Recalled from RN notes): No Functional Status (Recalled from RN notes): wnl History of Present Illness Provider Complaint: Patient states that he has been having episodes of vomiting on and off for about 2-3 weeks States that he has had diarrhea on and off since having his gallbadder removed years ago States that he doesnt feel sick and has appointment with his PCP tomorrow for same complaint but just wanted to have someone listen to him and see if he needed scans or something Related Data Home Medications Medication Instructions Recorded Confirmed lisinopril 20 1 tab PO DAILY High blood pressure 08/16/17 08/18/20 mg-hydrochlorothiazide 12.5 mg tablet amlodipine 5 mg tablet 5 mg PO DAILY HTN 07/17/18 08/18/20 fluoxetine 20 mg capsule 20 mg PO DAILY Depression 07/17/18 08/18/20 metoprolol succinate 50 mg 50 mg PO DAILY HTN 07/17/18 08/18/20 tablet,extended release 24 hr Previous Rx's Medication Instructions Recorded clindamycin HCl 300 mg capsule 300 mg PO Q6 7 days #28 caps 08/29/19 ondansetron 4 mg disintegrating 4 mg PO TIDP PRN Nausea 3 days #9 04/26/21 tablet tabs ondansetron 4 mg disintegrating 4 mg PO TIDP PRN Nausea And 08/16/21 tablet Vomiting #15 tabs amoxicillin 500 mg-potassium 1 tab PO TID 7 days #21 tabs 11/06/21 clavulanate 125 mg tablet oxymetazoline 0.05 % nasal spray 15 ml intranasal BID 3 days 11/06/21 Allergies Allergy/AdvReac Type Severity Reaction Status Date / Time No Known Allergies Allergy Verified 10/27/22 16:06 Worker's Comp Is this a Worker's Comp case?: No PFSH [facility] Disclaimer: The information contained in this section may have been updated after the patient was seen, as this information can be updated by other users. Social History Smoking Status: Current every day smoker tobacco type: cigarettes packs per day: 1 alcohol intake: never current occupational status: other Travel in the last 8 weeks: None household members: spouse and children housing: house current occupational exposures/hazards: No caffeine: No ROS Obtained: Yes All systems reviewed & no additional complaints except as documented and Yes Systems reviewed as appropriate & no additional complaints except as documented Constitutional Constitutional: Reports system reviewed and no additional complaints, except as documented, Reports as per HPI, Denies fatigue a
== END 2022-10-27 15:50 | disposition home or self-care (01) ==
PROVIDERS: Emergency Provider Nurse Practitioner
DX: R11.2 Nausea with vomiting, unspecified (principal); F17.210 Nicotine dependence, cigarettes, uncomplicated
CPT/HCPCS: 99212; 99213; G0463

== ENCOUNTER 2023-02-20 01:06 | Emergency (ER) | payer BC, SELFPAY ==
[2023-02-20 01:08] VITALS: BP 159/94; PULSE 83; RESP 18; O2SAT 100; BMI 35.4
[2023-02-20 01:34] VITALS: BP 158/80; PULSE 88; RESP 20; TEMP 36.6; O2SAT 100
--- NOTE | 2023-02-20 01:35 | HMH.EDGENADL ---
Discharge Plan Disposition Patient Disposition: Home, Self-Care Condition: Good Prescriptions Prescriptions: New oxycodone 5 mg tablet 5 mg PO Q8H PRN (Reason: pain) Qty: 12 0RF amoxicillin-pot clavulanate 875-125 mg tablet 1 tab PO BID 7 Days Qty: 14 0RF No Action metoprolol succinate 50 MG tablet extended release 24 hr 50 mg PO DAILY amlodipine 5 MG tablet 5 mg PO DAILY fluoxetine 20 MG capsule 20 mg PO DAILY clindamycin HCl 300 MG capsule 300 mg PO Q6 7 Days Qty: 28 0RF ondansetron 4 MG tablet,disintegrating 4 mg PO TIDP PRN (Reason: Nausea) 3 Days Qty: 9 0RF lisinopril-hydrochlorothiazide 1 EACH tablet 1 tab PO DAILY ondansetron 4 MG tablet,disintegrating 4 mg PO TIDP PRN (Reason: Nausea And Vomiting) Qty: 15 0RF amoxicillin-pot clavulanate 1 EACH tablet 1 tab PO TID 7 Days Qty: 21 0RF oxymetazoline 30 ML spray,non-aerosol 15 ml NS BID 3 Days 0RF Rx Instructions: instill up to twice a day through nostril, stop use after 3 days Referrals Follow up/Referrals: Provider,Referral, MD [Primary Care Provider] - See instructions Activity Restrictions/Add. Instructions Additional Instructions/Restrictions: Please follow-up with a dentist as soon as possible. Please take Augmentin as prescribed for infection. Please take Tylenol and ibuprofen as needed for pain. Please take oxycodone as needed for severe pain. Please return to the emergency department if you develop any new or worsening symptoms or become concerned for your health. Clinical Impressions Clinical Impression: Pain, dental Discharge ED Provider: Ezra Rodriguez General Adult HPI General Chief complaint: PAIN Stated complaint: Toothache Time Seen by Provider: 02/20/23 01:14 Mode of Arrival: Ambulatory Source of Information: Patient Limitations: No Limitations Description of Symptoms (Recalled from ER Triage Doc. by RN): Pt presents with upper tooth pain x 4 days. History of Present Illness HPI narrative: 27-year-old male history of hypertension presents with dental pain. Reports that his right upper incisor (tooth 7) is partially fake and has been causing him worsening pain starting a few days ago. He has been unable to see a dentist to this point. He reports no fever or systemic symptoms. Related Data Home Medications Medication Instructions Recorded Confirmed lisinopril 20 1 tab PO DAILY High blood pressure 08/16/17 08/18/20 mg-hydrochlorothiazide 12.5 mg tablet amlodipine 5 mg tablet 5 mg PO DAILY HTN 07/17/18 08/18/20 fluoxetine 20 mg capsule 20 mg PO DAILY Depression 07/17/18 08/18/20 metoprolol succinate 50 mg 50 mg PO DAILY HTN 07/17/18 08/18/20 tablet,extended release 24 hr Previous Rx's Medication Instructions Recorded clindamycin HCl 300 mg capsule 300 mg PO Q6 7 days #28 caps 08/29/19 ondansetron 4 mg disintegrating 4 mg PO TIDP PRN Nausea 3 days #9 04/26/21 tablet tabs ondansetron 4 mg disintegrating 4 mg PO TIDP PRN Nausea And 08/16/21 tablet Vomiting #15 tabs amoxicillin 500 mg-potassium 1 tab PO TID 7 days #21 tabs 11/06/21 clavulanate 125 mg tablet oxymetazoline 0.05 % nasal spray 15 ml intranasal BID 3 days 11/06/21 amoxicillin 875 mg-potassium 1 tab PO BID 7 days #14 tabs 02/20/23 clavulanate 125 mg tablet oxycodone 5 mg tablet 5 mg PO Q8H PRN pain #12 tabs 02/20/23 Allergies Allergy/AdvReac Type Severity Reaction Status Date / Time No Known Allergies Allergy Verified 10/27/22 16:06 [facility] Disclaimer: The information contained in this section may have been updated after the patient was seen, as this information can be updated by other users. Social History Smoking Status: Current every day smoker tobacco type: cigarettes packs per day: 1 alcohol intake: never current occupational status: other Travel in the last 8 weeks: None household members: spouse and children housing: house current occupati
== END 2023-02-20 01:42 | disposition home or self-care (01) ==
PROVIDERS: Emergency Provider Emergency Medicine
DX: G50.1 Atypical facial pain (principal); I10 Essential (primary) hypertension; F17.210 Nicotine dependence, cigarettes, uncomplicated
CPT/HCPCS: 99283

== ENCOUNTER 2023-03-06 16:01 | Emergency (ER) | payer OTHER, SELFPAY ==
[2023-03-06 17:00] VITALS: BP 125/75; PULSE 88; RESP 18; TEMP 37.1; O2SAT 97; BMI 34.9
--- NOTE | 2023-03-06 17:31 | EXP.UTC ---
Discharge Plan Disposition Patient Disposition: Home, Self-Care Condition: Good Prescriptions Prescriptions: New nitrofurantoin monohyd/m-cryst [Macrobid] 100 mg capsule 100 mg PO Q12H 7 Days Qty: 14 0RF Rx Instructions: must administer with a meal/food No Action metoprolol succinate 50 MG tablet extended release 24 hr 50 mg PO DAILY fluoxetine 20 MG capsule 20 mg PO DAILY lisinopril-hydrochlorothiazide 1 EACH tablet 1 tab PO DAILY oxycodone 5 mg tablet 5 mg PO Q8H PRN (Reason: pain) Qty: 12 0RF buspirone 7.5 mg tablet 7.5 mg PO DAILY desvenlafaxine succinate 50 mg tablet extended release 24 hr 50 mg PO DAILY Referrals Follow up/Referrals: Provider,Referral, MD [Primary Care Provider] - See instructions Clinical Impressions Clinical Impression: Urinary tract infection Qualifiers: Urinary tract infection type: site unspecified Hematuria presence: without hematuria Qualified Code(s): N39.0 - Urinary tract infection, site not specified Instructions Patient Instructions: DI for Urinary Tract Infection (UTI) Discharge ED Provider: Kalee Griffin [facility] General Stated complaint: fever,Diarrhea,Abd Pain Mode of Arrival: Ambulatory Source of Information: Patient Limitations: No Limitations Time Seen by Provider: 03/06/23 17:31 Description of Symptoms (Recalled from Triage Doc. by RN): stomach cramps, fever, vomiting, possible dehydration, and nausea HEENT Symptoms (Recalled from RN notes): Yes Resp Symptoms (Recalled from RN notes): No Skin Symptoms (Recalled from RN notes): No MS Symptoms (Recalled from RN notes): No Functional Status (Recalled from RN notes): n/a History of Present Illness Provider Complaint: Pt reports fever, stomach cramping, voiding coke colored urine, vomiting, and nausea. He states that he feels as if he may have an UTI. Related Data Home Medications Medication Instructions Recorded Confirmed lisinopril 20 1 tab PO DAILY High blood pressure 08/16/17 03/06/23 mg-hydrochlorothiazide 12.5 mg tablet fluoxetine 20 mg capsule 20 mg PO DAILY Depression 07/17/18 08/18/20 metoprolol succinate 50 mg 50 mg PO DAILY HTN 07/17/18 08/18/20 tablet,extended release 24 hr buspirone 7.5 mg tablet 7.5 mg PO DAILY . 03/06/23 03/06/23 desvenlafaxine succinate 50 mg 50 mg PO DAILY . 03/06/23 03/06/23 tablet,extended release 24 hr Previous Rx's Medication Instructions Recorded oxycodone 5 mg tablet 5 mg PO Q8H PRN pain #12 tabs 02/20/23 nitrofurantoin 100 mg PO Q12H 7 days #14 caps 03/06/23 monohydrate/macrocrystals 100 mg capsule (Macrobid) Allergies Allergy/AdvReac Type Severity Reaction Status Date / Time No Known Allergies Allergy Verified 10/27/22 16:06 Worker's Comp Is this a Worker's Comp case?: No [facility] Disclaimer: The information contained in this section may have been updated after the patient was seen, as this information can be updated by other users. Social History Smoking Status: Current every day smoker tobacco type: cigarettes packs per day: 1 alcohol intake: never current occupational status: other Travel in the last 8 weeks: None household members: spouse and children housing: house current occupational exposures/hazards: No caffeine: No ROS Obtained: Yes All systems reviewed & no additional complaints except as documented Constitutional Constitutional: Reports system reviewed and no additional complaints, except as documented, Reports fever(s) and Reports malaise Eyes Eyes: Reports system reviewed and no additional complaints, except as documented ENT Ears, Nose, Mouth, and Throat: Reports system reviewed and no additional complaints, except as documented Cardiovascular Cardiovascular: Reports system reviewed and no additional complaints, except as documented Respiratory Respiratory: Reports system reviewed and no additi
[2023-03-06 18:20] LABS: Microscopic, Urine URINE MICROSCOPIC (MICROSCOPIC)
[2023-03-06 18:23] LABS: Appearance,Urine CLEAR (Clear); Blood, Urine Negative (Negative); Color,Urine DARK YELLOW (Yellow); Glucose,Urine (UA) Negative (Negative); Ketones,Urine TRACE (Negative); Leukocyte Esterase,Urine Negative (Negative); Nitrate,Urine POSITIVE (Negative); Protein,Urine TRACE (Negative)
[2023-03-06 18:44] LABS: Bilirubin,Urine 2+ (Negative)
[2023-03-06 18:45] LABS: Bacteria,Urine 1+ /lpf
[2023-03-06 19:08] VITALS: BP 125/75; PULSE 88; RESP 18; TEMP 37.1; O2SAT 97
== END 2023-03-06 19:08 | disposition home or self-care (01) ==
PROVIDERS: Emergency Provider Nurse Practitioner Family
DX: N39.0 Urinary tract infection, site not specified (principal); R50.9 Fever, unspecified; R11.2 Nausea with vomiting, unspecified; F17.210 Nicotine dependence, cigarettes, uncomplicated
CPT/HCPCS: 81001; 87086; 99212; 99214; G0463

== ENCOUNTER 2023-03-08 21:05 | Emergency (ER) | payer OTHER, SELFPAY ==
[2023-03-08 21:06] VITALS: BP 115/78; PULSE 90; RESP 18; TEMP 37; O2SAT 99; BMI 34.9
[2023-03-08 23:25] LABS: Microscopic, Urine URINE MICROSCOPIC (MICROSCOPIC)
--- NOTE | 2023-03-08 23:25 | ECG_ITS ---
APPROVED REPORT Exam: Resting ECG HR:84 bpm ECG Measurements Heart Rate 84 AXES CA 152 P 16 QRSd 105 QRS 9 QT 349 T 19 QTc 390 Conclusion SINUS RHYTHM INDETERMINATE AXIS NORMAL ECG UNCONFIRMED REPORT Electronically signed by : Silvio Roberts MD 03/10/2023 17:21:10
--- NOTE | 2023-03-08 23:27 | XR_ITS ---
PROCEDURE INFORMATION: Exam: XR Chest Exam date and time: 03/09/2023 12:12 AM Age: 27 years old Clinical indication: Pain; Other: Epigastric; Additional info: Epigastric pain/clamminess TECHNIQUE: Imaging protocol: Radiologic exam of the chest. Views: 1 view. Total images: 1 COMPARISON: CR CXR CHEST(2 VIEWS-NOT PORTABLE) 05/20/2016 9:52 PM FINDINGS: Lungs: Mild hypoventilatory change with crowded lung markings. No consolidation. No pulmonary vascular congestion or edema. Pleural spaces: Unremarkable. No pleural effusion. No pneumothorax. Heart/Mediastinum: Unremarkable. No cardiomegaly. No mediastinal widening or hilar enlargement. Bones/joints: Unremarkable. IMPRESSION: No radiographically acute cardiopulmonary process.
[2023-03-08 23:30] LABS: Appearance,Urine CLEAR (Clear); Blood, Urine Negative (Negative); Color,Urine AMBER (Yellow); Glucose,Urine (UA) TRACE (Negative); Ketones,Urine TRACE (Negative); Leukocyte Esterase,Urine Negative (Negative); Nitrate,Urine Negative (Negative); PH,Urine 6.5 (5.0-8.5); Protein,Urine TRACE (Negative); Specific Gravity, Urine 1.015 (1.005-1.030)
--- NOTE | 2023-03-08 23:31 | HMH.EDGENADL ---
Discharge Plan Disposition Patient Disposition: Home, Self-Care Condition: Good Prescriptions Prescriptions: No Action metoprolol succinate 50 MG tablet extended release 24 hr 50 mg PO DAILY fluoxetine 20 MG capsule 20 mg PO DAILY lisinopril-hydrochlorothiazide 1 EACH tablet 1 tab PO DAILY oxycodone 5 mg tablet 5 mg PO Q8H PRN (Reason: pain) Qty: 12 0RF buspirone 7.5 mg tablet 7.5 mg PO DAILY desvenlafaxine succinate 50 mg tablet extended release 24 hr 50 mg PO DAILY nitrofurantoin monohyd/m-cryst [Macrobid] 100 mg capsule 100 mg PO Q12H 7 Days Qty: 14 0RF Rx Instructions: must administer with a meal/food Referrals Follow up/Referrals: Kristina Thibodeaux APRN [Primary Care Provider] - See instructions Activity Restrictions/Add. Instructions Additional Instructions/Restrictions: You were evaluated in the emergency department today for abdominal pain, sweats, chills. You do not have signs of urinary tract infection and review of your recent work-up also did not demonstrate signs of infection and you had no growth of bacteria in your urine that was sampled 2 days ago. You do not have signs of kidney dysfunction, your liver enzymes are tracely elevated and should be reevaluated by your primary care physician but are not specifically concerning today. Continue drinking plenty of water. Stop taking the Macrobid antibiotic. Please make an appointment with your primary care physician for the next 2 to 3 days for reevaluation. Return to the emergency department with new or worsening symptoms. Clinical Impressions Clinical Impression: Abdominal pain, acute, epigastric, Chills Instructions Patient Instructions: DI for Acute Abdominal Pain Discharge ED Provider: Jojo Nj Adult [facility] General Chief complaint: Abdominal Pain Stated complaint: abd pain Time Seen by Provider: 03/08/23 23:19 Mode of Arrival: Ambulatory Source of Information: Patient Limitations: No Limitations Description of Symptoms (Recalled from ER Triage Doc. by RN): Presents to ED with c/o abd pain that started 2 hours ago that radiates from epigastric pain to belly button. Patient reports being diagnosed with a UTI on Tuesday and was Rx'd Macrobid. +N/V/D/Chills/Fever since Tuesday. Patient reports having hx of IBS but does not take meds for it. Patient states taking Ibuprofen 5-6 hours ago. History of Present Illness HPI narrative: This 27-year-old male presents to the emergency department with concerns of epigastric pain. Patient states he was diagnosed with urinary tract infection on Tuesday and prescribed Macrobid which she started on Tuesday. Patient states he has had 3 episodes of nausea with vomiting and intermittent chills and sweats since Tuesday. Patient states he has a history of fatty liver disease and a family history of kidney disease. He is concerned that his urine continues to be dark despite being on antibiotics. He states he has had at least 90 ounces of water today and is concerned about the dark color of his urine. He is also concerned about liver and kidney function. Upon evaluation in the emergency department, his abdominal pain has resolved but he stated that he did have sweatiness and chills associated with it when it occurred earlier this evening. Patient has a personal history of SVT with ablation. Related Data Home Medications Medication Instructions Recorded Confirmed lisinopril 20 1 tab PO DAILY High blood pressure 08/16/17 03/06/23 mg-hydrochlorothiazide 12.5 mg tablet fluoxetine 20 mg capsule 20 mg PO DAILY Depression 07/17/18 08/18/20 metoprolol succinate 50 mg 50 mg PO DAILY HTN 07/17/18 08/18/20 tablet,extended release 24 hr buspirone 7.5 mg tablet 7.5 mg PO DAILY . 03/06/23 03/06/23 desvenlafaxine succinate 50 mg 50 mg PO DAILY . 03/06/23 03/06/23 tablet,extended release 24 hr Previous Rx's Medication Instructions Recorded oxycodone 5 mg tablet 5 mg
[2023-03-08 23:55] LABS: Bilirubin,Urine 1+ (Negative)
[2023-03-08 23:56] LABS: Bacteria,Urine Trace /lpf; Squamous Epithelial Cell,Urine Occasional #/hpf (0-5); WBC,Urine Occasional #/hpf (0-3)
[2023-03-09 00:25] LABS: Chloride 102 mmol/L (98-107); Sodium 139 mmol/L (136-145)
[2023-03-09 00:26] LABS: Potassium 3.5 mmoL/L (3.5-5.1)
[2023-03-09 00:28] LABS: Alanine Aminotransferase 92 U/L (12-78); Albumin Level 4.1 g/dl (3.5-5.0); Albumin/Globulin Ratio 1.2 (1.1-1.8); Alkaline Phosphatase 90 U/L (38-126); Anion Gap 10.5 mEq/L (5-15); Aspartate Amino Transferase 88 U/L (17-59); Blood Urea Nitrogen 5 mg/dl (9-20); Carbon Dioxide 30 mmol/L (22.0-30.0); Creatinine Clearance Estimated 199 mL/min (50-200); Estimated Glomerular Filt Rate 90 ml/min (>60); GFR (African American) 108 ML/MIN (>60); Globulin 3.4 g/dL (1.3-3.2); Total Protein,Serum 7.5 g/dl (6.3-8.2)
[2023-03-09 00:29] LABS: Calcium 8.6 mg/dl (8.4-10.2); Glucose 96 mg/dl (74-100); Lipase 121 U/L (23-300)
[2023-03-09 00:46] LABS: Troponin I < 0.01 ng/ml (0.00-0.034)
[2023-03-09 00:53] LABS: Basophils # 0.2 K/mm3 (0-0.2); Eosinophils # 0.2 K/mm3 (0.0-0.4); Eosinophils % 2.1 % (0.1-12.0); Hematocrit 48.9 % (42.0-52.0); Hemoglobin 15.8 g/dL (14.1-18.0); Lymphocytes # 5.2 K/mm3 (0.7-4.5); Lymphocytes % 56.2 % (10-50); Mean Corpuscular HGB Conc 32.4 g/dL (31.8-35.4); Mean Corpuscular Hemoglobin 28.5 pg (27.0-31.2); Mean Platelet Volume 10.5 fl (7.4-10.4); Monocytes # 0.4 K/mm3 (0.1-1.0); Monocytes % 3.9 % (1.7-9.3); Neutrophils # 3.3 K/mm3 (1.8-7.8); Neutrophils % 35.9 % (37.0-80.0); Platelet Count 197 K/mm3 (142-424); Red Blood Count 5.56 M/mm3 (4.60-6.20); White Blood Count 9.2 K/mm3 (4.8-10.8)
[2023-03-09 00:55] LABS: MANUAL DIFFERENTIAL MANUAL DIFFERENTIAL (MANUAL DIFF)
--- NOTE | 2023-03-09 01:09 | PC.NURSE ---
Reported handed off to hSannan JOHNSON
[2023-03-09 01:18] VITALS: BP 115/78; PULSE 90; RESP 17; TEMP 37; O2SAT 99
[2023-03-09 02:21] LABS: Eosinophils % 2 % (0-3); Lymphocytes % 55 % (10-50); Monocytes % 2 % (2-9); Neutrophils % 41 % (42-76); Platelet Estimate Normal; RBC Morphology Normal; Total Cells Counted 100
== END 2023-03-09 01:24 | disposition home or self-care (01) ==
PROVIDERS: Emergency Medicine; Emergency Provider Emergency Medicine; PCP Nurse Practitioner Family
DX: R10.13 Epigastric pain (principal); R11.2 Nausea with vomiting, unspecified; R19.7 Diarrhea, unspecified; R50.9 Fever, unspecified; F17.210 Nicotine dependence, cigarettes, uncomplicated
CPT/HCPCS: 71045; 80053; 81001; 83690; 84484; 85007; 85025; 93005; 96360; 99285

== ENCOUNTER → 2023-03-14 11:49 | Outpatient (CLI) | payer OTHER, SELFPAY ==
[2023-03-14 12:41] LABS: Basophils # 0.3 K/mm3 (0-0.2); Eosinophils # 0.5 K/mm3 (0.0-0.4); Eosinophils % 4.1 % (0.1-12.0); Hematocrit 44.9 % (42.0-52.0); Hemoglobin 14.7 g/dL (14.1-18.0); Lymphocytes # 7.5 K/mm3 (0.7-4.5); Lymphocytes % 59.2 % (10-50); Mean Corpuscular HGB Conc 32.7 g/dL (31.8-35.4); Mean Corpuscular Hemoglobin 28.5 pg (27.0-31.2); Mean Corpuscular Volume 87.1 fl (80-94); Mean Platelet Volume 10.8 fl (7.4-10.4); Monocytes # 0.7 K/mm3 (0.1-1.0); Monocytes % 5.3 % (1.7-9.3); Neutrophils # 3.7 K/mm3 (1.8-7.8); Neutrophils % 29.4 % (37.0-80.0); Platelet Count 254 K/mm3 (142-424); Red Blood Count 5.16 M/mm3 (4.60-6.20); Red Cell Distribution Width 13.4 % (11.5-17.5); White Blood Count 12.7 K/mm3 (4.8-10.8)
[2023-03-14 12:51] LABS: MANUAL DIFFERENTIAL MANUAL DIFFERENTIAL (MANUAL DIFF)
[2023-03-14 13:31] LABS: Alanine Aminotransferase 76 U/L (12-78); Albumin Level 3.9 g/dl (3.5-5.0); Albumin/Globulin Ratio 1.4 (1.1-1.8); Alkaline Phosphatase 77 U/L (38-126); Anion Gap 7.3 mEq/L (5-15); Aspartate Amino Transferase 55 U/L (17-59); Bilirubin,Total 0.6 mg/dl (0.2-1.3); Blood Urea Nitrogen 5 mg/dl (9-20); Calcium 8.9 mg/dl (8.4-10.2); Carbon Dioxide 33 mmol/L (22.0-30.0); Chloride 104 mmol/L (98-107); Estimated Glomerular Filt Rate 101 ml/min (>60); GFR (African American) 122 ML/MIN (>60); Globulin 2.8 g/dL (1.3-3.2); Glucose 96 mg/dl (74-100); Potassium 4.3 mmoL/L (3.5-5.1); Sodium 140 mmol/L (136-145); Total Protein,Serum 6.7 g/dl (6.3-8.2)
[2023-03-14 14:00] LABS: Eosinophils % 4 % (0-3); Lymphocytes % 56 % (10-50); Monocytes % 13 % (2-9); Neutrophils % 23 % (42-76); Total Cells Counted 100
[2023-03-14 14:01] LABS: Platelet Estimate Normal; RBC Morphology Normal
[2023-03-15 15:44] LABS: EBV Ab VCA, IgG >600.0 U/mL (0.0-17.9); EBV Ab VCA, IgM >160.0 U/mL (0.0-35.9); EBV Nuclear Antigen Ab, IgG >600.0 U/mL (0.0-17.9)
== END ==
PROVIDERS: PCP Internal Medicine Adolescent Medicine; Visit Provider Internal Medicine Adolescent Medicine
DX: R50.9 Fever, unspecified (principal); R79.89 Other specified abnormal findings of blood chemistry
CPT/HCPCS: 36415; 80053; 85007; 85025; 86644; 86664; 86665

== ENCOUNTER 2023-11-03 14:00 | Outpatient (RCR) | payer OTHER, SELFPAY ==
--- NOTE | 2023-11-02 14:42 | HMH.PTOPEV ---
PT Outpatient Evaluation Rehab PT Outpatient Evaluation Start: 11/02/23 13:51 Freq: Status: Active Protocol: Document 11/02/23 13:51 TEJSEROUX (Rec: 11/02/23 14:42 PDESEROUX [id number]) E-signed By Vega King, PT Outpatient Therapy Subjective History Subjective History Pt. is a 28 year old male who presents to [facility] in [place] for the initial evaluation this date( 11/02/23) w/ c/o acute on chronic and constant LLE ankle P!, stiffness, and edema of insidious onset 4-5 months ago that has progressively been getting worse in the last 2-3 weeks. Pt. reports symptoms are now constant and presents w/ bulging over the achilles tendon since the last 2-3 weeks. Pt. reports symptoms are its worse first thing getting out of bed in the morning, prolonged ambulation, running/sprinting. Pt. reports having some symptom relief w/ resting and icing. Pt. denies having any current activity restrictions at this time. Pt. denies having any diagnostic imaging nor injections for current complaint. Pt. reports being prescribed Voltaren Gel, but states, I haven't used it yet . Current medications include Vit. D3 supplement and Hydrochlorothiazide. PMH includes borderline HTN, Cardiac Ablation, hx. of SVT, S/P RUE shldr. repair, Cholecystectomy, Tonsillectomy , and Depression/Anxiety disorders. New diagnosis of cancer in past 12 No months? Chief Complaint Pain,Stiff,Swelling,Weakness Symptom Type Ache,Sharp,Dull,Stabbing, Burning Symptoms Relieved By Rest/Positioning,Ice Symptoms Aggravated By Standing,Physical Activity, Walking Prior Functional Limitations None Current Functional Limitations Sleeping,Standing,Squatting, Recreation Activity,Walking, Stairs,Bending/Stooping Symptom Description Constant but Variable,Activity Dependent Level of pain today (0-10) 2 Pain scale - at its best (0-10) 1 Pain scale - at its worst (0-10) 6 Ankle/Foot Eval Gait Observation General Gait Pattern Observation Antalgic Gait,Decrease Weight Bear (L),Decrease Stride Lngth (R) Assistive Device Ambulation Assistive Device None Palpation Tenderness left Ankle/Foot Palpation Findings Tenderness Ankle/Foot Palpation Overall Comment grade 4 +TTP to achilles tendon, gastroc/soleus mms. ATF TTP negative PTF TTP negative CF TTP negative Deltoid ligament TTP negative ROM Ankle/Foot Dorsiflexion w/Knee Extended -5 Active Range Motion (degrees) Ankle/Foot Dorsiflexion w/Knee Extended -13 Passive Range (degrees) Ankle/Foot Plantar Flexion Active Range 43 of Motion (degrees) Ankle/Foot Plantar Flexion Passive Range 47 of Motion (degrees) Ankle/Foot Eversion Active Range of 18 Motion (degrees) Ankle/Foot Eversion Passive Range of 22 Motion (degrees) Ankle/Foot Inversion Active Range of 25 Motion (degrees) Ankle/Foot Inversion Passive Range of 31 Motion (degrees) Ankle/Foot ROM Limitations Soft Tissue Tightness,Muscle Weakness,Muscle Tone,Pain MMT Ankle Dorsiflexion Strength Grade 4- Good- Ankle Plantarflexion Strength Grade 3 Fair Foot Eversion Strength Grade 4- Good- Foot Inversion Strength Grade 4- Good- Ankle Dorsiflexors Muscle Tone Severe Hypertonicity Description Special Tests Ankle Anterior Drawer Test Negative Left Ankle Posterior Drawer Test Negative Left Outpatient Therapy Assessment Impairments Problems/Impairmments Palpation Tenderness,Impaired Range of Motion,Impaired Strength,Impaired Gait Pattern ,Impaired Walking,Impaired Standing,Impaired Stair Climbing,Impaired Incline Stepping,Impaired Stepping on Uneven Surface,Impaired Squatting,Impaired Recreational Activities, Impaired Running,Impaired Jumping,Increased Edema, Subjective C/O Pain,Impaired Self Care/Self Management Prognosis Rehab Potential Good Comment w/ HEP compliancy Clinical Impression Consistent with Diagnosis Yes Consistent with L Achilles Tendinitis Short Term Goals Number of Weeks 2 Decreased Palpation Tenderness Yes: grade 1-2 +TTP to TTP assessment above Decrease Subjective C/O Pain Yes: worse:10/20 Patient to be Ind w/ HEP Yes Senior Care Goals Number of Weeks 4 Decreased Palpation Tenderness Yes: grade 1 +TTP to TTP assessment above Increase Range of Motion Yes: LLE ankle A/PROM WNL grossly w/o difficulty Increase Strength Yes: LLE ankle MMT scores 4+ to 5/5 grossly Improve Gait Pattern without Assistive Yes Device Increase Ability to Walk Yes Increase Ability to Stand Yes Improve Ability to Climb Stairs Yes Improve Incline Stepping Ability Yes Improve Ability to Step on Uneven Yes Surfaces Return to Recreational Activities Yes Improve LEFI Score Yes Decrease Edema Yes Decrease Subjective C/O Pain Yes: worse:-07/23 Improve Self Care/Self Management Yes: improved ability w/ stepping out of bed in the morning Patient to be Ind w/ Advanced HEP Yes Outpatient Therapy Plan of Care Treatment Plan May Include Therapeutic Exercise Including Home Yes Exercise Program Manual Therapy Techniques Yes Neuromuscular Re-education Yes Therapeutic Activities to Return to Yes Previous Functional/Work Level Gait Training Yes ADL/Self Care Education Yes Dry Needling Yes Thermal Modalities Yes Electrical Stimulation Yes Ultrasound/Phonophoresis Yes Iontophoresis Yes Vasopneumatic Compression Pump Yes Massage Yes Eval/Re-Eval Yes Frequency Times per week 2 Duration Number of Weeks 4 Addendums This patient is a candidate for social No or vocational rehab? Patient/Guardian verbally acknowledges Yes understanding of treatment program and consents to further treatment? Patient/Guardian verbally acknowledges Yes understanding of diagnosis, prognosis and goals for treatment? Eval Complexity PT Charges 81359 - Low Complexity Shoulder/Elbow Eval Shoulder Objective Measurements Elbow Objective Measurements PHYSICIAN CERTIFICATION: I certify the specified therapy services for Frank Sofia are required, authorized, and reviewed every 30 days.
== END 2023-12-12 14:40 | disposition home or self-care (01) ==
LOC: PT 14:00
PROVIDERS: Visit Provider Internal Medicine Adolescent Medicine
DX: M76.62 Achilles tendinitis, left leg (principal)
CPT/HCPCS: 20560; 97010; 97014; 97035; 97110; 97163; G0283

== ENCOUNTER 2024-01-24 20:41 | Emergency (ER) | payer OTHER, SELFPAY ==
[2024-01-24 20:41] VITALS: BP 139/88; PULSE 80; RESP 18; TEMP 37.1; O2SAT 100; BMI 35.7
--- NOTE | 2024-01-24 20:45 | ED_ITS ---
<Statement entered by Carlyn Roberto MD - 01/30/24 06:59> I was consulted by the KARIME, and we discussed the complexity of the problems being addressed. I approved the treatment and management plan for this patient's care in the emergency department, thus performing a substantive portion of the medical decision making. Carlyn Roberto MD, CODIE, FACEP Discharge Plan Disposition Patient Disposition: Home, Self-Care Condition: Fair Prescriptions Prescriptions: New hydrocodone-acetaminophen 5-325 mg tablet 1 tab PO Q6H PRN (Reason: pain) 3 Days Qty: 12 0RF ondansetron 4 mg tablet,disintegrating 4 mg PO Q6H PRN (Reason: nausea and vomiting) 5 Days Qty: 20 0RF No Action Zyrtec 10 mg capsule 10 mg PO DAILY PRN fluticasone propionate [Flonase Allergy Relief] 50 mcg/actuation spray,suspension 1 spray intranasal DAILY Rx Instructions: administer into each nostril hydrochlorothiazide 25 mg tablet 25 mg PO DAILY ondansetron 8 mg tablet,disintegrating 8 mg PO BID PRN (Reason: nausea and vomiting) 5 Days Qty: 10 2RF Activity Restrictions/Add. Instructions Additional Instructions/Restrictions: You have been referred to use the [facility]. They will call you with an appointment. Please utilize crutches to be nonweightbearing until seen. Return to ER for any worsening signs or symptoms as needed Clinical Impressions Clinical Impression: Achilles tendon rupture Qualifiers: Encounter type: initial encounter Laterality: left Qualified Code(s): S86.012A - Strain of left Achilles tendon, initial encounter Instructions Patient Instructions: DI for Achilles Tendon Rupture Print Language Print Language: Albanian Discharge ED Provider: Carlyn Roberto General Adult HPI <ROSEANN Ortiz - Last Filed: 01/24/24 23:22> General Chief complaint: Extremity Injury, Lower Stated complaint: kicked in ariadna's tendon, pain Time Seen by Provider: 01/24/24 20:45 History of Present Illness HPI narrative: Patient presents for left foot injury. Patient states he was playing with a stepchild and was accidentally kicked in the back of his left foot. He felt a pop and was unable to bear weight or walk afterwards. He denies any other injury. Related Data Home Medications ?Medication ?Instructions ?Recorded ?Confirmed cetirizine 10 mg capsule (Zyrtec) 10 mg PO DAILY PRN 10/06/23 10/06/23 fluticasone propionate 50 1 spray intranasal DAILY 10/06/23 10/06/23 mcg/actuation nasal spray,suspension (Flonase Allergy Relief) hydrochlorothiazide 25 mg tablet 25 mg PO DAILY 10/06/23 10/06/23 Previous Rx's ?Medication ?Instructions ?Recorded ondansetron 8 mg disintegrating 8 mg PO BID PRN nausea and 10/06/23 tablet vomiting 5 days #10 tabs hydrocodone 5 mg-acetaminophen 325 1 tab PO Q6H PRN pain 3 days #12 01/24/24 mg tablet tabs ondansetron 4 mg disintegrating 4 mg PO Q6H PRN nausea and 01/24/24 tablet vomiting 5 days #20 tabs Allergies Allergy/AdvReac Type Severity Reaction Status Date / Time No Known Allergies Allergy Verified 10/06/23 13:06 [facility] <ROSEANN Ortiz - Last Filed: 01/24/24 23:22> [facility] Disclaimer: The information contained in this section may have been updated after the patient was seen, as this information can be updated by other users. Medical History (Updated 01/24/24 @ 21:43 by ROSEANN Ortiz) Hypertension Seasonal allergies Surgical History (Updated 10/06/23 @ 13:13 by Aleena Merritt MA) H/O shoulder surgery History of cholecystectomy H/O cardiac radiofrequency ablation Family History (Updated 10/06/23 @ 13:09 by Aleena Merritt MA) Other No significant family history Social History Smoking Status: Current every day smoker tobacco type: cigarettes packs per day: 1 alcohol intake: never current occupational status: other Travel in the last 8 weeks: None household members: spouse and children housing: house current occupational exposures/hazards: No caffeine: No <ROSEANN Ortiz - Last Filed: 01/24/24 23:22> ROS Obtained: Yes Systems reviewed as appropriate & no additional complaints except as documented Physical Exam <ROSEANN Ortiz - Last Filed: 01/24/24 23:22> General General appearance: alert and in no apparent distress Chest Chest inspection: Present symmetric chest wall rise Respiratory Respiratory exam: Present normal lung sounds bilaterally Cardiovascular Cardiovascular exam: Present regular rate and normal rhythm Expanded Lower Extremity Exam Left: Ankle image: 2 1. Slight contusion and significant tenderness to palpation Neurological Exam Neurological exam: Present alert and oriented X3 Medical Decision Making <ROSEANN Ortiz - Last Filed: 01/24/24 23:22> Ankit Inquiry Pt receiving controlled substance: No Vital Signs: 01/24/24 20:41 01/24/24 21:55 Temperature 98.8 F 98.5 F Temperature Source Oral Oral Pulse Rate 90 Pulse Rate [Left Radial] 80 Respiratory Rate 18 16 Blood Pressure 129/89 Blood Pressure [Right Arm] 139/88 Blood Pressure Mean [Right Arm] 105 Blood Pressure Source Automatic Cuff Blood Pressure Source [Right Arm] Automatic Cuff Blood Pressure Position Sitting Blood Pressure Position [Right Arm] Sitting 02 Sat by Pulse Oximetry 100 Oxygen Delivery Method Room Air Room Air Orders (Tests/Meds): ED MEDICATIONS Discontinued Medications Generic Name Dose Route Start Last Admin Trade Name Danisq PRN Reason Stop Dose Admin Acetaminophen 1,000 mg 01/24/24 20:44 01/24/24 20:51 Acetaminophen 500mg Tab PO 01/24/24 20:45 1,000 mg ONCE ONE Administration Ibuprofen 800 mg 01/24/24 20:44 01/24/24 20:51 Ibuprofen 400 Mg Tablet PO 01/24/24 20:45 800 mg ONCE ONE Administration Oxycodone HCl 5 mg 01/24/24 21:43 01/24/24 21:51 Oxycodone 5mg Immediate Release Tablet PO 01/24/24 21:44 5 mg ONCE ONE Administration ORDERS Category Date Time Status Ankle XR - Left minimum 3 Views [XR ankle LT min 3V] Exams 01/24/24 20:46 Completed Stat POCUS Point of Care (ER Only) Stat Exams 01/24/24 21:06 Ordered Medical Decision Narrative: In summary patient is a 28-year-old male who presents to the emergency department for evaluation of left foot injury. Patient is hemodynamically stable upon arrival, afebrile. Physical exam is remarkable for tenderness to palpation at the Achilles tendon with a area of contusion and edema proximal along the Achilles tendon course. Patient is neurovascularly intact distally. Patient has a positive Funk test. Differential diagnosis includes complete Achilles disruption versus Achilles contusion versus partial tear etc. Initial workup included a plain film of the foot however further workup was considered including POCUS but given his clinical findings further workup was deferred initial interventions include Toradol Tylenol oxycodone. Initial workup reviewed by me shows no fracture. Given this we had interactive discussion with [facility] orthopedic service about patient management. Patient is going to be placed in an a splint in the equinus position and will be followed up by orthopedics and they will contact him. We discussed with Dr. Doe who was on-call. Will be nonweightbearing and given crutches prior to discharge. <Carlyn Roberto MD - Last Filed: 01/24/24 21:50> Vital Signs: 01/24/24 20:41 01/24/24 21:55 Temperature 98.8 F 98.5 F Temperature Source Oral Oral Pulse Rate 90 Pulse Rate [Left Radial] 80 Respiratory Rate 18 16 Blood Pressure 129/89 Blood Pressure [Right Arm] 139/88 Blood Pressure Mean [Right Arm] 105 Blood Pressure Source Automatic Cuff Blood Pressure Source [Right Arm] Automatic Cuff Blood Pressure Position Sitting Blood Pressure Position [Right Arm] Sitting 02 Sat by Pulse Oximetry 100 Oxygen Delivery Method Room Air Room Air Orders (Tests/Meds): ED MEDICATIONS Discontinued Medications Generic Name Dose Route Start Last Admin Trade Name Freq PRN Reason Stop Dose Admin Acetaminophen 1,000 mg 01/24/24 20:44 01/24/24 20:51 Acetaminophen 500mg Tab PO 01/24/24 20:45 1,000 mg ONCE ONE Administration Ibuprofen 800 mg 01/24/24 20:44 01/24/24 20:51 Ibuprofen 400 Mg Tablet PO 01/24/24 20:45 800 mg ONCE ONE Administration Oxycodone HCl 5 mg 01/24/24 21:43 01/24/24 21:51 Oxycodone 5mg Immediate Release Tablet PO 01/24/24 21:44 5 mg ONCE ONE Administration ORDERS Category Date Time Status Ankle XR - Left minimum 3 Views [XR ankle LT min 3V] Exams 01/24/24 20:46 Completed Stat POCUS Point of Care (ER Only) Stat Exams 01/24/24 21:06 Ordered Procedures <Carlyn Roberto MD - Last Filed: 01/24/24 21:50> Orthopedic Splinting/Casting Injury #1: Side: left Lower Extremity Injury Location: lower leg Lower Extremity Immobilizer: posterior splint, stirrup splint (In equinus position ) and Bab[place]unde wrap Other Orthopedic Equipment: crutches Post Cast/Splinting Neuro Status: intact Post Cast/Splinting Vasc Status: intact Critical Care <ROSEANN Ortiz - Last Filed: 01/24/24 23:22> Critical Care Time Critical Care Time: No
--- NOTE | 2024-01-24 20:46 | XR_ITS ---
PROCEDURE INFORMATION: Exam: XR Left Ankle Exam date and time: 01/24/2024 9:11 PM Age: 28 years old Clinical indication: Pain; Ankle; Left; Additional info: Injury, pain, unable to bear weight TECHNIQUE: Imaging protocol: Radiologic exam of the left ankle. Views: 3 or more views. COMPARISON: No relevant prior studies available. FINDINGS: Bones/joints: Normal. Soft tissues: Normal. IMPRESSION: No acute findings.
[2024-01-24] MEDS: IBUPROFEN 400 MG TABLET 800 MG PO (20:51)
[2024-01-24] MEDS: ACETAMINOPHEN 500MG TAB 1000 MG PO (20:51)
--- NOTE | 2024-01-24 21:20 | PC.NURSE ---
call placed to [employer] for consult. rad notified to [employer] when completed.
[2024-01-24] MEDS: OXYCODONE 5MG IMMEDIATE RELEASE TABLET 5 MG PO (21:51)
[2024-01-24 21:55] VITALS: BP 129/89; PULSE 90; RESP 16; TEMP 36.9; O2SAT 98
== END 2024-01-24 22:01 | disposition home or self-care (01) ==
PROVIDERS: Emergency Provider Student in an Organized Health Care Education/Training Program; PCP Internal Medicine Adolescent Medicine
DX: S86.012A Strain of left Achilles tendon, initial encounter (principal); W50.1XXA Accidental kick by another person, initial encounter
CPT/HCPCS: 29515; 73610; 99283

== ENCOUNTER 2024-06-07 17:00 | Outpatient (RCR) | payer OTHER, SELFPAY | END 2024-06-07 23:59 | disposition home or self-care (01) | LOC: PT 17:00 | PROVIDERS: Visit Provider Orthopaedic Surgery | DX: M25.572 Pain in left ankle and joints of left foot (principal); S86.012D Strain of left Achilles tendon, subsequent encounter; Z98.890 Other specified postprocedural states | CPT/HCPCS: 97010; 97014; 97110; 97140; 97163; 97530; G0283 ==

== ENCOUNTER 2024-06-28 14:05 | Outpatient (CLI) | payer OTHER, SELFPAY ==
[2024-06-28 15:07] LABS: Basophils # 0.1 K/mm3 (0-0.2); Basophils % 0.7 % (0.1-2.0); Eosinophils # 0.1 K/mm3 (0.0-0.4); Eosinophils % 1.5 % (0.1-12.0); Hematocrit 45.5 % (42.0-52.0); Hemoglobin 15.8 g/dL (14.1-18.0); Lymphocytes # 2.5 K/mm3 (0.7-4.5); Lymphocytes % 28.2 % (10-50); Mean Corpuscular HGB Conc 34.7 g/dL (31.8-35.4); Mean Corpuscular Hemoglobin 29.5 pg (27.0-31.2); Mean Platelet Volume 11.8 fl (7.4-10.4); Monocytes # 0.6 K/mm3 (0.1-1.0); Monocytes % 6.9 % (1.7-9.3); Neutrophils # 5.5 K/mm3 (1.8-7.8); Neutrophils % 62.3 % (37.0-80.0); Platelet Count 265 K/mm3 (142-424); Red Blood Count 5.35 M/mm3 (4.60-6.20); Red Cell Distribution Width 12.3 % (11.5-17.5); White Blood Count 8.9 K/mm3 (4.8-10.8)
[2024-06-28 15:17] LABS: Alanine Aminotransferase 59 U/L (12-78); Albumin Level 4.9 g/dl (3.5-5.0); Albumin/Globulin Ratio 2.1 (1.1-1.8); Alkaline Phosphatase 74 U/L (38-126); Anion Gap 13.5 mEq/L (5-15); Aspartate Amino Transferase 43 U/L (17-59); Bilirubin,Total 0.6 mg/dl (0.2-1.3); Blood Urea Nitrogen 13 mg/dl (9-20); Carbon Dioxide 26 mmol/L (22.0-30.0); Chloride 105 mmol/L (98-107); Estimated Glomerular Filt Rate 100 ml/min (>60); GFR (African American) 122 ML/MIN (>60); Globulin 2.3 g/dL (1.3-3.2); Glucose 87 mg/dl (74-100); Potassium 4.5 mmoL/L (3.5-5.1); Sodium 140 mmol/L (136-145); Total Protein,Serum 7.2 g/dl (6.3-8.2)
[2024-06-28 15:25] LABS: C-Reactive Protein 0.7 mg/L (0-4)
[2024-06-28 15:34] LABS: 25-OH Vitamin D, Total 29.6 ng/mL (30-100)
[2024-06-28 16:04] LABS: Erythrocyte Sedimentation Rate 3 mm/hr (0-15)
[2024-06-29 11:24] LABS: RA Latex Turbid. <10.0 IU/mL (<14.0)
[2024-07-02 20:08] LABS: Anti-CCP Abs,IgG and IgA (RDL) < 20 Units (<20)
== END 2024-06-28 23:59 | disposition home or self-care (01) ==
LOC: LAB 14:06
PROVIDERS: PCP Nurse Practitioner Family; Visit Provider Nurse Practitioner Family
DX: I10 Essential (primary) hypertension (principal); M25.50 Pain in unspecified joint; E55.9 Vitamin D deficiency, unspecified
CPT/HCPCS: 36415; 80053; 82306; 83036; 84443; 85025; 85651; 86140; 86200; 86431

== ENCOUNTER 2024-07-05 15:31 | Outpatient (CLI) | payer OTHER, SELFPAY ==
--- NOTE | 2024-07-05 15:37 | XR_ITS ---
PROCEDURE INFORMATION: Exam: XR Left Shoulder Exam date and time: 07/05/2024 3:48 PM Age: 28 years old Clinical indication: Pain; Shoulder; Left; Additional info: Lt shoulder pain TECHNIQUE: Imaging protocol: Radiologic exam of the left shoulder. Views: 2 or more views. COMPARISON: CR XR CHEST PORTABLE 09/03/2023 00:12 FINDINGS: Bones/joints: No acute fracture or dislocation. No erosions or periosteal reaction. Soft tissues: Normal. IMPRESSION: Normal shoulder x-rays.
--- NOTE | 2024-07-05 15:37 | XR_ITS ---
PROCEDURE INFORMATION: Exam: XR Right Shoulder Exam date and time: 07/05/2024 3:48 PM Age: 28 years old Clinical indication: Pain; Shoulder; Right; Additional info: RT shoulder pain TECHNIQUE: Imaging protocol: Radiologic exam of the right shoulder. Views: 2 or more views. COMPARISON: CR XR CHEST PORTABLE 09/03/2023 00:12 FINDINGS: Bones/joints: No acute fracture or dislocation. No erosions or periosteal reaction. Soft tissues: Normal. IMPRESSION: Normal shoulder x-rays.
== END 2024-07-05 23:59 | disposition home or self-care (01) ==
LOC: RAD 15:33
PROVIDERS: PCP Nurse Practitioner Family; Visit Provider Physician Assistant
DX: M25.511 Pain in right shoulder (principal); M25.512 Pain in left shoulder
CPT/HCPCS: 73030

== ENCOUNTER 2024-07-13 08:47 | Outpatient (CLI) | payer OTHER, SELFPAY ==
--- NOTE | 2024-07-13 08:54 | XR_ITS ---
FINAL REPORT CLINICAL HISTORY: knee pain COMPARISON: None FINDINGS: LEFT KNEE Three views demonstrate no acute fracture or dislocation. The joint spaces appear normal. No acute soft tissue abnormality is seen. There is a tiny osteophyte along the undersurface of the lateral articular facet of the patella. IMPRESSION: No acute bony abnormality. Reviewed, Interpreted and Dictated by Aramis Mcduffie MD Transcribed by Peggy Gillis Authenticated and [facility]
--- NOTE | 2024-07-13 08:54 | XR_ITS ---
FINAL REPORT CLINICAL HISTORY: Knee pain COMPARISON: None FINDINGS: RIGHT KNEE Three views demonstrate no acute fracture or dislocation. The joint spaces appear normal. No acute soft tissue abnormality is seen. IMPRESSION: No acute bony abnormality. Reviewed, Interpreted and Dictated by Aramis Mcduffie MD Transcribed by Peggy Gillis Authenticated and . [facility]
== END 2024-07-13 23:59 | disposition home or self-care (01) ==
LOC: RAD 08:48
PROVIDERS: PCP Nurse Practitioner Family; Visit Provider Physician Assistant
DX: M25.561 Pain in right knee (principal); M25.562 Pain in left knee
CPT/HCPCS: 73562

== ENCOUNTER 2024-07-22 22:26 | Inpatient (IN) | payer OTHER, SELFPAY ==
[2024-07-22 22:32] VITALS: BP 172/100; PULSE 118; RESP 20; TEMP 37.8; O2SAT 100; BMI 35.7
--- NOTE | 2024-07-22 22:54 | CT_ITS ---
PROCEDURE INFORMATION: Exam: CT Abdomen And Pelvis With Contrast Exam date and time: 07/22/2024 11:38 PM Age: 28 years old Clinical indication: Fever and nausea; Abdominal pain; Additional info: Lower abd pain, fever, nausea TECHNIQUE: Imaging protocol: Computed tomography of the abdomen and pelvis with contrast. Radiation optimization: All CT scans at this facility use at least one of these dose optimization techniques: automated exposure control; mA and/or kV adjustment per patient size (includes targeted exams where dose is matched to clinical indication); or iterative reconstruction. Contrast material: ISOVUE; Contrast volume: 75 ml; Contrast route: IV; COMPARISON: 1. CT ABDOMEN PELVIS W CON 08/15/2021 10:[address] ABDOMEN PELVIS W CON 04/26/2021 9:[address] abdomen pelvis wo con 08/16/2017 10:02 PM FINDINGS: Liver: Normal. Gallbladder and biliary ducts: The patient is status post cholecystectomy. Pancreas: Normal. Spleen: Normal. Adrenal glands: The adrenal glands appear normal. Kidneys and ureters: There are no soft tissue renal masses or hydronephrosis. Stomach and bowel: There is large volume stool throughout the colon. There is inflammatory change of the sigmoid colon associated with a small diverticulum. There are few small locules of adjacent air which are not definitively intraluminal and could reflect micro perforation (image 108 series 4). Appendix: No evidence of appendicitis. Intraperitoneal space: Unremarkable. Vasculature: The abdominal aorta and its major branches appear normal without evidence of aneurysm or stenosis. There are pelvic phleboliths. Lymph nodes: No lymphadenopathy. Urinary bladder: Unremarkable as visualized. Reproductive: No acute process. Bones/joints: The visualized osseous structures of the abdomen and pelvis appear normal for patient age. Soft tissues: Unremarkable. IMPRESSION: Sigmoid diverticulitis with small locules of air that can not be definitively characterized as intraluminal, findings may reflect micro perforation. No abscess.
--- NOTE | 2024-07-22 22:56 | ED_ITS ---
Discharge Plan Disposition Patient Disposition: Admitted Condition: Fair Chief Complaint: Abdominal Pain Prescriptions Prescriptions: No Action Zyrtec 10 mg capsule 10 mg PO DAILY PRN (Reason: Congestion) fluticasone propionate [Flonase Allergy Relief] 50 mcg/actuation spray,suspension 1 spray intranasal DAILY Rx Instructions: administer into each nostril methylprednisolone [Medrol (Luther)] 4 mg tablets,dose pack See Rx Instructions PO PER PKG DIR Qty: 21 0RF Rx Instructions: PO PER PKG DIR amlodipine-olmesartan 10-20 mg tablet 1 tab PO ONCE desvenlafaxine succinate 50 mg tablet extended release 24 hr 50 mg PO ONCE colestipol 1 gram tablet 1 g PO BID buspirone 5 mg tablet 5 mg PO TID Clinical Impressions Clinical Impression: Diverticulitis of sigmoid colon Print Language Print Language: Lithuanian Discharge ED Provider: Carmen Rock General Adult HPI <Carmen Rock DO - Last Filed: 07/22/24 23:03> General Chief complaint: Abdominal Pain Stated complaint: abdominal pain,fever Time Seen by Provider: 07/22/24 22:41 Mode of Arrival: Ambulatory Source of Information: Patient Limitations: No Limitations Description of Symptoms (Recalled from ER Triage Doc. by RN): Patient presents ambulatory to triage with . Reports having lower abdominal pain that extends into his bilateral groin. Denies burning or frequency. Endorses pain/pressure when he urinates. Denies any alleviating or exacerbating factors. Denies blood in urine. Endorses fevers. History of Present Illness HPI narrative: This patient is a 28-year-old male with a history of nonalcoholic fatty liver disease, hypertension, anxiety/depression, prior cholecystectomy presenting to the emergency department for evaluation with concern for lower abdominal pain. Patient states that he started having lower abdominal pain in the suprapubic region/both groins that radiates to his rectum and testicles 3 to 4 days ago that is progressively worsened. He states it is worse when he goes pees, and he has extensive pressure when he urinates. No true burning when he pees. Nothing seems to make it better or worse. He has fevers that started over the last 24 hours as well as nausea, but no vomiting. He does note changes in his bowel movements. He had previously dealt with chronic diarrhea, but he was started on a medication to try and slow that down and now he states he is a little bit constipated, only passing small bouts of stool multiple times today. That the pain radiates to his testicles, he denies any localizable testicular pain, swelling, redness, or other concerns. No testicular trauma. No concern for sexually transmitted infection. Related Data Home Medications ?Medication ?Instructions ?Recorded ?Confirmed cetirizine 10 mg capsule (Zyrtec) 10 mg PO DAILY PRN Congestion 10/06/23 07/22/24 fluticasone propionate 50 1 spray intranasal DAILY 10/06/23 07/22/24 mcg/actuation nasal spray,suspension (Flonase Allergy Relief) amlodipine 10 mg-olmesartan 20 mg 1 tab PO ONCE 07/19/24 07/22/24 tablet buspirone 5 mg tablet 5 mg PO TID 07/19/24 07/22/24 colestipol 1 gram tablet 1 g PO BID 07/19/24 07/22/24 desvenlafaxine succinate 50 mg 50 mg PO ONCE 07/19/24 07/22/24 tablet,extended release 24 hr Previous Rx's ?Medication ?Instructions ?Recorded methylprednisolone 4 mg tablets in See Rx Instructions PO PER PKG DIR 07/16/24 a dose pack (Medrol (Luther)) #21 tabs Allergies Allergy/AdvReac Type Severity Reaction Status Date / Time No Known Allergies Allergy Verified 07/16/24 13:25 [facility] <Carmen Rock DO - Last Filed: 07/22/24 23:03> [facility] Disclaimer: The information contained in this section may have been updated after the patient was seen, as this information can be updated by other users. Medical History Hypertension Seasonal allergies Surgical History H/O shoulder surgery History of cholecystectomy H/O cardiac radiofrequency ablation Family History Other No significant family history Social History Smoking Status: Current every day smoker tobacco type: cigarettes packs per day: 1 alcohol intake: never current occupational status: other Travel in the last 8 weeks: None household members: spouse and children housing: house current occupational exposures/hazards: No caffeine: No Have you lived/traveled outside [place] in past 30 days?: No Contact w/someone who lives/traveled outside [place] past 30 days?: No Exposure to someone with infectious disease in past 14 days?: No Do you have a fever (greater than 100.4 F or 38 C)?: Yes Have you tested positive for COVID-19: No Exposed to someone with COVID-19 in past 14 days?: No Do you have a sore throat?: No Do you have a cough?: No Do you have any weakness?: No Do you have any diarrhea?: No Are you experiencing any unusual bleeding?: No Do you have any muscle aches/pain?: No Do you have any abdominal pain?: Yes Are you experiencing loss of taste or smell?: No Other Medical History Have you received the Flu Vaccine for this season: Yes Have you received the Pneumonia Vaccine: No <Carmen Rock DO - Last Filed: 07/22/24 23:03> ROS Obtained: Yes All systems reviewed & no additional complaints except as documented Physical Exam <Carmen Rock DO - Last Filed: 07/22/24 23:03> General General appearance: alert, in no apparent distress and obese Head Head exam: atraumatic and normocephalic Eye Eye exam: Present normal appearance, PERRL and EOMI ENT ENT exam: Present normal exam, normal oropharynx, mucous membranes moist and normal external ear exam Neck Neck exam: Present normal inspection, full ROM and trachea midline; Absent tenderness Chest Chest inspection: Present normal inspection and symmetric chest wall rise; Absent tenderness Respiratory Respiratory exam: Present normal lung sounds bilaterally; Absent respiratory distress, wheezes, stridor or accessory muscle use Cardiovascular Cardiovascular exam: Present regular rate and normal rhythm Abdominal Exam Abdominal exam: Present soft, tenderness (RLQ, suprapubic, LLQ) and guarding (RLQ); Absent distention, rebound or rigidity exam: Present normal inspection and normal testicular lie; Absent testicular tenderness, urethral discharge or scrotal swelling Extremities Exam Extremities exam: Present normal inspection, full ROM and normal capillary refill; Absent tenderness or edema Back Exam Back exam: Present normal inspection and full ROM; Absent tenderness Neurological Exam Neurological exam: Present alert, oriented X3, CN II-XII intact and normal gait; Absent motor sensory deficit Psychiatric Psychiatric exam: Present normal affect and normal mood Skin Skin exam: Present warm and dry Medical Decision Making <Carmen Pak Rock, DO - Last Filed: 07/22/24 23:03> Medical Records Medical records reviewed: Yes I reviewed the patient's medical records. Screening: Per USPSTF and CDC recommendations, given the prevalence of disease in our region, it is our hospital?s policy to screen for HIV and viral Hepatitis for all patients aged 18 and over and those with ongoing risk factors. Ankit Inquiry Pt receiving controlled substance: No Vital Signs: 07/22/24 22:32 Temperature 100.1 F H Temperature Source Oral Pulse Rate [Radial] 118 H Respiratory Rate 20 Blood Pressure [R Arm] 172/100 H Blood Pressure Mean [R Arm] 124 Blood Pressure Source [R Arm] Automatic Cuff Blood Pressure Position [R Arm] Sitting 02 Sat by Pulse Oximetry 100 Lab Data Lab results reviewed: Yes I reviewed the patient's lab results. Lab Results 07/22/24 11:08: WBC 17.1 H, RBC 5.08, Hgb 14.9, Hct 42.7, MCV 84.1, MCH 29.3, MCHC 34.9, RDW 12.1, Plt Count 281, MPV 11.8 H, Neut % (Auto) 71.7, Lymph % (Auto) 17.5, [place] % (Auto) 8.5, Eos % (Auto) 1.0, Baso % (Auto) 0.5, Neut # (Auto) 12.3 H, Lymph # (Auto) 3.0, [place] # (Auto) 1.5 H, Eos # (Auto) 0.2, Baso # (Auto) 0.1 07/22/24 22:38: Urine Color Dark yellow, Urine Appearance Clear, Urine pH 6.0, Ur Specific [place] >= 1.030, Urine Protein Negative, Urine Glucose (UA) Negative, Urine Ketones Negative, Urine Blood Negative, Urine Nitrate Negative, Urine Bilirubin Negative, Urine Urobilinogen 1.0, Ur Leukocyte Esterase Negative, Urine RBC None, Urine WBC None, Ur Squamous Epith Cells Occasional, Urine Bacteria None 07/22/24 23:00: SARS-CoV-2 (PCR) Not detected, Influenza A Untype (PCR) Not detected, Influenza Type B (PCR) Not detected 07/22/24 11:08 Orders (Tests/Meds): ED MEDICATIONS Generic Name Dose Route Start Last Admin Trade Name Freq PRN Reason Stop Dose Admin Lactated Ringer's 1,000 mls @ 999 mls/hr 07/22/24 22:55 07/22/24 23:00 Lactated Ringer's 1000 Ml Bag IV 07/22/24 23:55 999 mls/hr .Q1H1M ONE Administration Discontinued Medications Generic Name Dose Route Start Last Admin Trade Name Freq PRN Reason Stop Dose Admin Acetaminophen 1,000 mg 07/22/24 22:54 07/22/24 23:00 Acetaminophen 1,000mg/100ml Vial IV 07/22/24 22:55 1,000 mg ONCE ONE Administration ORDERS Category Date Time Status CT abdomen pelvis w con Stat Cat Scan 07/22/24 22:54 Ordered Complete Blood Count Auto Diff Stat Lab 07/22/24 11:08 Results Comprehensive Metabolic Panel Stat Lab 07/22/24 11:08 Received HIV Combo Stat Lab 07/22/24 11:08 Received Hepatitis C Ab Qual. W/ RFX Stat Lab 07/22/24 11:08 Received Lactic Acid Stat Lab 07/22/24 11:08 Received Lipase Stat Lab 07/22/24 11:08 Received Rapid PCR Covid and Flu A/B Stat Lab 07/22/24 23:00 Completed UA [Urinalysis and Microscopic] Stat Lab 07/22/24 22:38 Completed Urine Culture Stat Micro 07/22/24 22:54 Received Medical Decision Narrative: In summary, this patient is a 28-year-old male presenting to the Emergency Department for evaluation of lower abdominal pain, fever, nausea. Differential diagnoses considered include but are not limited to ureterolithiasis, cystitis, pyelonephritis, diverticulitis, appendicitis, STI, epididymitis, proctitis, prostatitis. Ruling out the most morbid conditions drove assessment. It should be noted patient's history includes obesity, nonalcoholic fatty liver, hypertension which are not at goal therapy. This complicates all aspects of care by increasing patient's risk for morbidity. I reviewed patient's past medical records and noted previous evaluation in orthopedics for arthralgia of multiple joints. On exam, the patient is lying in bed in no acute distress. He has significant lower abdominal tenderness with guarding in the right lower quadrant, but otherwise no rebound, no rigidity. Testicular exam is completely normal. Workup included CBC, CMP, lipase, lactic acid, urinalysis, urine culture, urine gonorrhea and chlamydia, CT abdomen pelvis with IV contrast. Patient was given IV Tylenol and a bolus of IV fluids. Patient care was signed out to the oncoming provider, Dr. Nj, pending workup and disposition. <Jojo Nj MD - Last Filed: 07/23/24 00:27> Vital Signs: 07/22/24 22:32 Temperature 100.1 F H Temperature Source Oral Pulse Rate [Radial] 118 H Respiratory Rate 20 Blood Pressure [R Arm] 172/100 H Blood Pressure Mean [R Arm] 124 Blood Pressure Source [R Arm] Automatic Cuff Blood Pressure Position [R Arm] Sitting 02 Sat by Pulse Oximetry 100 Lab Data Lab Results 07/22/24 11:08: WBC 17.1 H, RBC 5.08, Hgb 14.9, Hct 42.7, MCV 84.1, MCH 29.3, MCHC 34.9, RDW 12.1, Plt Count 281, MPV 11.8 H, Neut % (Auto) 71.7, Lymph % (Auto) 17.5, [place] % (Auto) 8.5, Eos % (Auto) 1.0, Baso % (Auto) 0.5, Neut # (Auto) 12.3 H, Lymph # (Auto) 3.0, [place] # (Auto) 1.5 H, Eos # (Auto) 0.2, Baso # (Auto) 0.1 07/22/24 22:38: Urine Color Dark yellow, Urine Appearance Clear, Urine pH 6.0, Ur Specific [place] >= 1.030, Urine Protein Negative, Urine Glucose (UA) Negative, Urine Ketones Negative, Urine Blood Negative, Urine Nitrate Negative, Urine Bilirubin Negative, Urine Urobilinogen 1.0, Ur Leukocyte Esterase Negative, Urine RBC None, Urine WBC None, Ur Squamous Epith Cells Occasional, Urine Bacteria None 07/22/24 23:00: SARS-CoV-2 (PCR) Not detected, Influenza A Untype (PCR) Not detected, Influenza Type B (PCR) Not detected Orders (Tests/Meds): ED MEDICATIONS Generic Name Dose Route Start Last Admin Trade Name Freq PRN Reason Stop Dose Admin Lactated Ringer's 1,000 mls @ 999 mls/hr 07/22/24 22:55 07/22/24 23:00 Lactated Ringer's 1000 Ml Bag IV 07/22/24 23:55 999 mls/hr .Q1H1M ONE Administration Discontinued Medications Generic Name Dose Route Start Last Admin Trade Name David PRN Reason Stop Dose Admin Acetaminophen 1,000 mg 07/22/24 22:54 07/22/24 23:00 Acetaminophen 1,000mg/100ml Vial IV 07/22/24 22:55 1,000 mg ONCE ONE Administration ORDERS Category Date Time Status CT abdomen pelvis w con Stat Cat Scan 07/22/24 22:54 Ordered Complete Blood Count Auto Diff Stat Lab 07/22/24 11:08 Results Comprehensive Metabolic Panel Stat Lab 07/22/24 11:08 Received HIV Combo Stat Lab 07/22/24 11:08 Received Hepatitis C Ab Qual. W/ RFX Stat Lab 07/22/24 11:08 Received Lactic Acid Stat Lab 07/22/24 11:08 Received Lipase Stat Lab 07/22/24 11:08 Received Rapid PCR Covid and Flu A/B Stat Lab 07/22/24 23:00 Completed UA [Urinalysis and Microscopic] Stat Lab 07/22/24 22:38 Completed Urine Culture Stat Micro 07/22/24 22:54 Received Medical Decision Narrative: In summary, this patient is a 28-year-old male presenting to the Emergency Department for evaluation of lower abdominal pain, fever, nausea. Differential diagnoses considered include but are not limited to ureterolithiasis, cystitis, pyelonephritis, diverticulitis, appendicitis, STI, epididymitis, proctitis, prostatitis. Ruling out the most morbid conditions drove assessment. It should be noted patient's history includes obesity, nonalcoholic fatty liver, hypertension which are not at goal therapy. This complicates all aspects of care by increasing patient's risk for morbidity. I reviewed patient's past medical records and noted previous evaluation in orthopedics for arthralgia of multiple joints. On exam, the patient is lying in bed in no acute distress. He has significant lower abdominal tenderness with guarding in the right lower quadrant, but otherwise no rebound, no rigidity. Testicular exam is completely normal. Workup included CBC, CMP, lipase, lactic acid, urinalysis, urine culture, urine gonorrhea and chlamydia, CT abdomen pelvis with IV contrast. Patient was given IV Tylenol and a bolus of IV fluids. Patient care was signed out to the oncoming provider, Dr. Nj, pending workup and disposition. Nj: Upon my assumption of care patient is stable. They agree with the assessment and plan from Dr. Rock. Labs and imaging are pending. Labs reviewed by me demonstrate UA negative for findings of infection which offers reassurance against UTI, prostatitis, patient does have leukocytosis on CMP with WBC 17.1. This with his associated tachycardia and elevated temperature at 100.1 is concerning the patient could be developing sepsis. He does not demonstrate findings of hemodynamic instability at this time and remains normotensive now 133/93, however I am empirically administering Zosyn for concerns of intra-abdominal infection. He is already receiving IV fluids and antipyretics. CMP with mild hypokalemia but normal lipase, lactic normal at 1.8. COVID and flu negative. CT abdomen pelvis personally interpreted demonstrates inflammatory changes of the sigmoid colon and fat stranding in the surrounding area, concern for diverticulitis. Radiology read is in agreement, also mentions the possibility of possible microperforation. I believe with patient's fever, elevated WBC, and possibility of microperforation that the patient requires admission and he is agreeable to this plan. I discussed this case with Dr. Johnson who is on-call for general surgery at this time. She recommends medical management with continued antibiotic coverage and is optimistic that patient can hopefully avoid a procedure. She is not recommending immediate surgical intervention. I discussed this case with the hospitalist including general surgery recommendations. Patient accepted in stable condition. Critical Care <Carmen Rock, DO - Last Filed: 07/22/24 23:03> Critical Care Time Critical Care Time: No
[2024-07-22] MEDS: LACTATED RINGERS 1000ML 1,000 ML 999 ML IV (23:00)
[2024-07-22] MEDS: ACETAMINOPHEN 1,000MG/100ML VIAL 1000 MG IV (23:00)
[2024-07-22 23:02] LABS: Microscopic, Urine URINE MICROSCOPIC (MICROSCOPIC)
[2024-07-22 23:04] LABS: Appearance,Urine CLEAR (Clear); Bilirubin,Urine Negative (Negative); Blood, Urine Negative (Negative); Glucose,Urine (UA) Negative (Negative); Ketones,Urine Negative (Negative); Leukocyte Esterase,Urine Negative (Negative); Nitrate,Urine Negative (Negative); Protein,Urine Negative (Negative); Specific Gravity, Urine >= 1.030 (1.005-1.030)
[2024-07-22 23:04] LABS: Coronavirus 19, PCR Not Detected (NotDetected); Influenza A, PCR Not Detected (NotDetected); Influenza B, PCR Not Detected (NotDetected)
[2024-07-22 23:06] LABS: Color,Urine Dark Yellow (Yellow)
[2024-07-22 23:13] LABS: Basophils # 0.1 K/mm3 (0-0.2); Basophils % 0.5 % (0.1-2.0); Eosinophils # 0.2 K/mm3 (0.0-0.4); Hematocrit 42.7 % (42.0-52.0); Hemoglobin 14.9 g/dL (14.1-18.0); Lymphocytes % 17.5 % (10-50); Mean Corpuscular HGB Conc 34.9 g/dL (31.8-35.4); Mean Corpuscular Hemoglobin 29.3 pg (27.0-31.2); Mean Corpuscular Volume 84.1 fl (80-94); Mean Platelet Volume 11.8 fl (7.4-10.4); Monocytes # 1.5 K/mm3 (0.1-1.0); Monocytes % 8.5 % (1.7-9.3); Neutrophils # 12.3 K/mm3 (1.8-7.8); Neutrophils % 71.7 % (37.0-80.0); Platelet Count 281 K/mm3 (142-424); Red Blood Count 5.08 M/mm3 (4.60-6.20); Red Cell Distribution Width 12.1 % (11.5-17.5); White Blood Count 17.1 K/mm3 (4.8-10.8)
[2024-07-22 23:15] LABS: Squamous Epithelial Cell,Urine Occasional #/hpf (0-5)
[2024-07-22 23:16] LABS: MANUAL DIFFERENTIAL MANUAL DIFFERENTIAL (MANUAL DIFF)
[2024-07-22 23:25] LABS: Lactic Acid 1.8 mmol/L (0.7-2.1)
[2024-07-22 23:27] LABS: Alanine Aminotransferase 56 U/L (12-78); Albumin Level 4.7 g/dl (3.5-5.0); Albumin/Globulin Ratio 1.8 (1.1-1.8); Alkaline Phosphatase 76 U/L (38-126); Anion Gap 15.3 mEq/L (5-15); Aspartate Amino Transferase 38 U/L (17-59); Bilirubin,Total 0.9 mg/dl (0.2-1.3); Blood Urea Nitrogen 11 mg/dl (9-20); Calcium 9.2 mg/dl (8.4-10.2); Carbon Dioxide 27 mmol/L (22.0-30.0); Chloride 98 mmol/L (98-107); Creatinine Clearance Estimated 224 mL/min (50-200); Estimated Glomerular Filt Rate 100 ml/min (>60); GFR (African American) 122 ML/MIN (>60); Globulin 2.6 g/dL (1.3-3.2); Glucose 111 mg/dl (74-100); Lipase 103 U/L (23-300); Potassium 3.3 mmoL/L (3.5-5.1); Sodium 137 mmol/L (136-145); Total Protein,Serum 7.3 g/dl (6.3-8.2)
[2024-07-22 23:56] LABS: Lymphocytes % 18 % (10-50); Microcytosis 1+; Monocytes % 7 % (2-9); Neutrophils % 75 % (42-76); Platelet Estimate Normal; Total Cells Counted 100
[2024-07-23] MEDS: SODIUM CHLORIDE 0.9% 10ML SYR (RAD ONLY) 10 ML IV (00:05)
[2024-07-23] MEDS: IOPAMIDOL-370 (76%);100ML BOTTLE 75 ML IV (00:05)
[2024-07-23] MEDS: PIPERACILLIN/TAZO 4.5 GM in 0.9 % SODIUM CHLORIDE 100 ML IV ×2 (00:16→07:34)
[2024-07-23 00:37] VITALS: BP 151/93; PULSE 101; RESP 20; TEMP 37.1; O2SAT 100
[2024-07-23 00:44] VITALS: BP 160/79; PULSE 102; RESP 22; TEMP 36.8; O2SAT 98; BMI 35.4
--- NOTE | 2024-07-23 01:25 | PC.NURSE ---
Patient arrived to floor via wheelchair from ED at 00:38.
[2024-07-23 01:35] LABS: HIV Combo NEGATIVE (Negative)
[2024-07-23 01:43] LABS: Hepatitis C Ab Qual. W/ RFX NEGATIVE (Negative)
--- NOTE | 2024-07-23 02:53 | P.HP_ITS ---
History of Present Illness *Admission Date: 07/23/24 *Reason for visit:: Abdominal pain *History of present illness: This is a pleasant 28-year-old male with a history of nonalcoholic fatty liver disease, hypertension, anxiety/depression, and prior cholecystectomy presenting to the emergency department along with his significant other with progressively worsening lower abdominal pain. He reports that the pain started 3 to 4 days ago in the suprapubic region and both groins, radiating to his rectum and testicles. He describes the pain as constant and worsening, particularly with urination, noting a sensation of pressure when urinating but denying true dysuria. He has experienced fevers in the past 24 hours along with nausea but no vomiting. He reports changes in bowel habits, noting that he has a history of chronic diarrhea but was recently started on medication to slow bowel transit. Since then, he has had mild constipation with frequent small bowel movements throughout the day. Despite the pain radiating to his testicles, he denies localized testicular pain, swelling, erythema, trauma, or concern for sexually transmitted infection. On initial evaluation, he was noted to be tachycardic with a mild fever of 100.1?F but remained hemodynamically stable with a blood pressure of 133/93. Laboratory findings revealed leukocytosis (WBC 17.1) with neutrophil predominance (71.7%), while his urinalysis was negative for infection, making a urinary etiology less likely. CMP was unremarkable aside from mild hypokalemia, lactic acid was normal at 1.8, and COVID-19 and influenza testing were negative. CT abdomen and pelvis showed inflammatory changes in the sigmoid colon with surrounding fat stranding, concerning for diverticulitis, with radiology also noting the possibility of microperforation. Given his fever, leukocytosis, and imaging findings, empiric IV Zosyn was initiated for intra-abdominal infection, and he was already receiving IV fluids and antipyretics. General surgery was consulted, and Dr. Johnson recommended medical management with continued antibiotics, expressing optimism that surgical intervention would not be necessary. The patient is agreeable to admission for further monitoring and treatment. Patient states he has a high pain tolerance and his overall presentation suggest that to be true. At this time he would prefer to avoid opiate pain medications and would like to manage with alternative medications if his pain stays tolerable. [facility] Disclaimer: The information contained in this section may have been updated after the patient was seen, as this information can be updated by other users. Medical History FHx: SVT (supraventricular tachycardia) Hypertension Seasonal allergies Surgical History History of radiofrequency ablation procedure for cardiac arrhythmia H/O shoulder surgery History of cholecystectomy H/O cardiac radiofrequency ablation Family History Other No significant family history Social History Smoking Status: Current every day smoker tobacco type: cigarettes packs per day: 1 alcohol intake: never current occupational status: employed and other Travel in the last 8 weeks: None household members: spouse and children housing: house current occupational exposures/hazards: No caffeine: No Have you lived/traveled outside [place] in past 30 days?: No Contact w/someone who lives/traveled outside US past 30 days?: No Exposure to someone with infectious disease in past 14 days?: No Do you have a fever (greater than 100.4 F or 38 C)?: Yes Have you tested positive for COVID-19: No Exposed to someone with COVID-19 in past 14 days?: No Do you have a sore throat?: No Do you have a cough?: No Do you have any weakness?: No Do you have any diarrhea?: No Are you experiencing any unusual bleeding?: No Do you have any muscle aches/pain?: No Do you have any abdominal pain?: Yes Are you experiencing loss of taste or smell?: No Other Medical History Have you received the Flu Vaccine for this season: Yes Have you received the Pneumonia Vaccine: No Review of Systems Review of Systems Review of systems (narrative): 13 point review of systems negative except as listed in HPI Meds Home Medications and Allergies Home Medications ?Medication ?Instructions ?Recorded ?Confirmed ?Type cetirizine 10 mg capsule (Zyrtec) 10 mg PO DAILY PRN Congestion 10/06/23 07/22/24 History fluticasone propionate 50 1 spray intranasal DAILY PRN Runny 10/06/23 07/22/24 History mcg/actuation nasal Nose spray,suspension (Flonase Allergy Relief) amlodipine 10 mg-olmesartan 20 mg 1 tab PO DAILY 07/19/24 07/23/24 History tablet buspirone 5 mg tablet 5 mg PO TID 07/19/24 07/22/24 History desvenlafaxine succinate 50 mg 50 mg PO DAILY 07/19/24 07/23/24 History tablet,extended release 24 hr colestipol 1 gram tablet 1 g PO BID 07/23/24 07/23/24 History New Prescriptions to Start Prescriptions: Allergies Allergy/AdvReac Type Severity Reaction Status Date / Time No Known Allergies Allergy Verified 07/16/24 13:25 Exam Data for Last 24 hours Vital signs and Labs for Last 24 Hours: Temp Pulse Resp BP Pulse Ox O2 Del Method 98.3 F 102 H 22 160/79 H 98 Room Air 07/23/24 00:44 07/23/24 00:44 07/23/24 00:44 07/23/24 00:44 07/23/24 00:44 07/23/24 01:00 Laboratory Results - last 24 hr 07/22/24 11:08: WBC 17.1 H, RBC 5.08, Hgb 14.9, Hct 42.7, MCV 84.1, MCH 29.3, MCHC 34.9, RDW 12.1, Plt Count 281, MPV 11.8 H, Neut % (Auto) 71.7, Lymph % (Auto) 17.5, [place] % (Auto) 8.5, Eos % (Auto) 1.0, Baso % (Auto) 0.5, Neut # (Auto) 12.3 H, Lymph # (Auto) 3.0, [place] # (Auto) 1.5 H, Eos # (Auto) 0.2, Baso # (Auto) 0.1, Total Counted 100, Neutrophils % (Manual) 75, Lymphocytes % (Manual) 18, Monocytes % (Manual) 7, Platelet Estimate Normal, Microcytosis 1+, Sodium 137, Potassium 3.3 L, Chloride 98, Carbon Dioxide 27, Anion Gap 15.3 H, BUN 11, Creatinine 0.90, Estimated Creat Clear 224, Estimated GFR 100, Est GFR ( Amer) 122, Glucose 111 H, Lactate 1.8, Calcium 9.2, Total Bilirubin 0.9, AST 38, ALT 56, Alkaline Phosphatase 76, Total Protein 7.3, Albumin 4.7, Globulin 2.6, Albumin/Globulin Ratio 1.8, Lipase 103, HCV Ab EMILY w/Rflx PCR Qn Negative, HIV Ag/Ab Combo Qual Negative 07/22/24 22:38: Urine Color Dark yellow, Urine Appearance Clear, Urine pH 6.0, Ur Specific [place] >= 1.030, Urine Protein Negative, Urine Glucose (UA) Negativ e, Urine Ketones Negative, Urine Blood Negative, Urine Nitrate Negative, Urine Bilirubin Negative, Urine Urobilinogen 1.0, Ur Leukocyte Esterase Negative, Urine RBC None, Urine WBC None, Ur Squamous Epith Cells Occasional, Urine Bacteria None 07/22/24 23:00: SARS-CoV-2 (PCR) Not detected, Influenza A Untype (PCR) Not detected, Influenza Type B (PCR) Not detected I & O for Last 24 hours: Intake & Output 07/20/24 07/21/24 07/22/24 07/23/24 23:59 23:59 23:59 23:59 Weight 129.727 kg 128.367 kg Constitutional Constitutional: no acute distress and obese *Routine HEENT Exam Head: Present normocephalic Eye: Present EOMI and PERRL ENT: Present mucous membranes moist *Routine Neck Exam Neck: Present supple; Absent lymphadenopathy *Routine Respiratory Exam Respiratory: Present CTA bilaterally *Routine Cardiovascular Exam Cardiovascular: Present RRR *Routine Abdominal Exam Abdominal: Present soft, normoactive bowel sounds and obese; Absent tenderness *Routine Rectal Exam Rectal:: deferred *Routine Genitalia Exam Genitalia:: deferred *Routine Extremities Exam Extremities: Absent cyanosis, clubbing or edema *Routine Skin Exam Skin: Present warm; Absent rash *Routine Neurological Exam Neurological: Present alert and oriented X3 Assessment and Plan *Assessment and plan (1) Diverticulitis of sigmoid colon: Status: Acute Category: Medical Code(s): K57.32 - Diverticulitis of large intestine without perforation or abscess without bleeding (2) Hx of supraventricular tachycardia: Status: Acute Category: Medical Code(s): Z86.79 - Personal history of other diseases of the circulatory system (3) Abdominal pain, acute, epigastric: Status: Acute Category: Medical Code(s): R10.13 - Epigastric pain (4) Nausea & vomiting: Status: Acute Qualifiers: Vomiting type: unspecified Qualified Code(s): R11.2 - Nausea with vomiting, unspecified Category: Medical Code(s): R11.2 - Nausea with vomiting, unspecified (5) Hypertension: Status: Acute Qualifiers: Hypertension type: primary hypertension Qualified Code(s): I10 - Essential (primary) hypertension Category: Medical Code(s): I10 - Essential (primary) hypertension Plan Medical Decision Making: This is a 28-year-old male with a history of nonalcoholic fatty liver disease, hypertension, anxiety/depression, and prior cholecystectomy presenting with lower abdominal pain, fever, and urinary symptoms. CT abdomen/pelvis revealed sigmoid colon inflammation with fat stranding concerning for diverticulitis, with possible microperforation. Labs showed leukocytosis (WBC 17.1), mild hypokalemia, and normal lactic acid (1.8), with a negative urinalysis ruling out urinary tract involvement. Given his fever, tachycardia, and elevated WBC, there is concern for intra-abdominal infection with potential early sepsis, though he remains hemodynamically stable. He has been started on empiric IV Zosyn, IV fluids, and antipyretics, and general surgery was consulted. Dr. Johnson agrees with medical management and does not recommend immediate surgical intervention at this time. The patient is agreeable to admission for continued IV antibiotics, supportive care, and close monitoring for clinical improvement or signs of worsening infection. Acute diverticulitis with possible microperforation * CT abdomen/pelvis shows sigmoid colon inflammation with surrounding fat stranding concerning for diverticulitis, with radiology noting the possibility of microperforation * Fever, leukocytosis (WBC 17.1), and tachycardia raise concern for intra- abdominal infection with possible early sepsis * Started on empiric IV Zosyn for broad-spectrum coverage * Continue IV fluids and antipyretics for supportive care * General surgery consulted; Dr. Johnson recommends medical management with continued antibiotics and monitoring, no immediate surgical intervention required * Monitor for worsening abdominal pain, hemodynamic instability, or signs of peritonitis Leukocytosis and concern for early sepsis * WBC 17.1 with neutrophil predominance (71.7%) * Mild fever (100.1?F) and tachycardia but remains hemodynamically stable * No lactic acidosis (lactate 1.8), reassuring against severe sepsis or shock * Continue IV fluids, monitor for hemodynamic changes * Trend WBC and inflammatory markers to assess response to antibiotics Urinary symptoms without evidence of UTI or prostatitis * Complains of urinary pressure but no true dysuria * UA negative for leukocyte esterase, nitrites, or WBCs, making infection unlikely * No evidence of prostatitis or STI by history * Symptoms likely secondary to inflammation from diverticulitis; monitor for worsening urinary retention or obstructive symptoms Mild hypokalemia * CMP shows mild hypokalemia, likely due to decreased oral intake or GI losses * Replete potassium as needed and monitor with serial electrolyte checks Nonalcoholic fatty liver disease * No acute liver dysfunction noted on CMP * Continue standard monitoring, avoid hepatotoxic medications Hypertension * BP 133/93 on presentation, stable * Continue home antihypertensive regimen as tolerated during admission Anxiety and depression * No acute psychiatric concerns * Continue home medications as appropriate Disposition * Admit for IV antibiotics, fluid resuscitation, and close monitoring * Continue medical management per general surgery recommendation * Monitor for worsening symptoms requiring surgical intervention * Ensure adequate pain control and supportive care Rounded on patient after nurse practitioner. Personally examined and interviewed patient. Agree with exam findings and care plan as documented. On exam this morning still has focal tenderness in left lower quadrant. Reviewed CT showing punctate air and concern for microperforation associated with diverticulitis. Will continue broad-spectrum antibiotics at this time. Discussed case with surgery, will advance diet to clears today. Repeat CBC, CMP, magnesium ordered for the morning. White count remains elevated at 15.8. Electrolytes low with potassium 3.2. Will replace per protocol. No nausea or vomiting today.
[2024-07-23 04:00] VITALS: BP 142/77; PULSE 89; RESP 16; TEMP 36.9; O2SAT 100; BMI 35.5
[2024-07-23] MEDS: 0.9 % SODIUM CHLORIDE 1000ML 1,000 ML 100 ML IV (04:07)
[2024-07-23 04:50] LABS: Basophils # 0.1 K/mm3 (0-0.2); Basophils % 0.4 % (0.1-2.0); Eosinophils # 0.2 K/mm3 (0.0-0.4); Eosinophils % 1.1 % (0.1-12.0); Hematocrit 42.9 % (42.0-52.0); Hemoglobin 14.7 g/dL (14.1-18.0); Lymphocytes # 2.9 K/mm3 (0.7-4.5); Lymphocytes % 18.6 % (10-50); Mean Corpuscular HGB Conc 34.3 g/dL (31.8-35.4); Mean Corpuscular Hemoglobin 29.5 pg (27.0-31.2); Mean Platelet Volume 11.8 fl (7.4-10.4); Monocytes # 1.5 K/mm3 (0.1-1.0); Monocytes % 9.5 % (1.7-9.3); Neutrophils % 69.6 % (37.0-80.0); Platelet Count 245 K/mm3 (142-424); Red Blood Count 4.99 M/mm3 (4.60-6.20); Red Cell Distribution Width 12.3 % (11.5-17.5); White Blood Count 15.8 K/mm3 (4.8-10.8)
[2024-07-23 04:56] LABS: MANUAL DIFFERENTIAL MANUAL DIFFERENTIAL (MANUAL DIFF)
[2024-07-23 04:57] LABS: INR 0.88 (0.9-1.1); Prothrombin Time 9.8 seconds (9.2-12.1)
[2024-07-23 05:00] LABS: Chloride 99 mmol/L (98-107); Potassium 3.2 mmoL/L (3.5-5.1); Sodium 138 mmol/L (136-145)
[2024-07-23 05:03] LABS: Anion Gap 11.2 mEq/L (5-15); Blood Urea Nitrogen 11 mg/dl (9-20); Carbon Dioxide 31 mmol/L (22.0-30.0); Creatinine Clearance Estimated 224 mL/min (50-200); Estimated Glomerular Filt Rate 100 ml/min (>60); GFR (African American) 122 ML/MIN (>60); Phosphorous 4.3 mg/dl (2.5-4.5)
[2024-07-23 05:04] LABS: Calcium 8.7 mg/dl (8.4-10.2); Glucose 93 mg/dl (74-100); Magnesium 2.2 mg/dl (1.6-2.3)
--- NOTE | 2024-07-23 05:47 | PC.NURSE ---
Pt. was admitted overnight with Diverticulitis. . Pt. presented to the ED with c/o low abdominal pain that radiates to bilateral groin area. Pt. is alert and orientated x 4. Pt. on room air. Pt. states pain is 3-4/10 and tolerable. IV fluids infusing. Pt. will have a surgery consult. Pt. has been NPO in the ED and here on the floor. Pt.'s potassium level low (3.2) form sent to [facility] for potassium replacement orders. VSS. Personal items and call nobles in reach.
[2024-07-23] MEDS: POTASSIUM CHLORIDE 20MEQ TAB 40 MEQ PO ×2 (06:15→09:49)
[2024-07-23 07:43] LABS: Eosinophils % 1 % (0-3); Lymphocytes % 21 % (10-50); Monocytes % 3 % (2-9); Neutrophils % 75 % (42-76); Total Cells Counted 100
[2024-07-23 07:44] LABS: Platelet Estimate Normal; RBC Morphology Normal
[2024-07-23 08:00] VITALS: BP 147/78; PULSE 106; RESP 18; TEMP 37.3; O2SAT 99
--- NOTE | 2024-07-23 08:34 | P.CONS_ITS ---
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 This initially began about 3 or 4 days ago in the suprapubic region and radiated to the perineal area. He had associated pressure. He has had some change in bowel habits with chronic diarrhea and had been started on medication which has given him some constipation with frequent small bowel movements. Evaluation in the emergency department revealed mild leukocytosis of 17,000. CT scan revealed inflammatory changes of the sigmoid colon with surrounding fat stranding with some possibility of extraluminal regional air raising the possibility of possible microperforation. Given the leukocytosis, mild fever, and imaging findings consistent with possible complicated diverticulitis patient was admitted for inpatient management and official surgical consultation. [facility] Disclaimer: The information contained in this section may have been updated after the patient was seen, as this information can be updated by other users. Medical History FHx: SVT (supraventricular tachycardia) Hypertension Seasonal allergies Surgical History History of radiofrequency ablation procedure for cardiac arrhythmia H/O shoulder surgery History of cholecystectomy H/O cardiac radiofrequency ablation Family History Other No significant family history Social History Smoking Status: Current every day smoker tobacco type: cigarettes packs per day: 1 alcohol intake: never current occupational status: employed and other Travel in the last 8 weeks: None household members: spouse and children housing: house current occupational exposures/hazards: No caffeine: No Have you lived/traveled outside [place] in past 30 days?: No Contact w/someone who lives/traveled outside US past 30 days?: No Exposure to someone with infectious disease in past 14 days?: No Do you have a fever (greater than 100.4 F or 38 C)?: Yes Have you tested positive for COVID-19: No Exposed to someone with COVID-19 in past 14 days?: No Do you have a sore throat?: No Do you have a cough?: No Do you have any weakness?: No Do you have any diarrhea?: No Are you experiencing any unusual bleeding?: No Do you have any muscle aches/pain?: No Do you have any abdominal pain?: Yes Are you experiencing loss of taste or smell?: No Review of Systems Review of Systems Review of systems:: pertinent systems reviewed and negative unless documented below Meds Home Medications and Allergies Home Medications ?Medication ?Instructions ?Recorded ?Confirmed ?Type cetirizine 10 mg capsule (Zyrtec) 10 mg PO DAILY PRN Congestion 10/06/23 07/22/24 History fluticasone propionate 50 1 spray intranasal DAILY PRN Runny 10/06/23 07/22/24 History mcg/actuation nasal Nose spray,suspension (Flonase Allergy Relief) amlodipine 10 mg-olmesartan 20 mg 1 tab PO DAILY 07/19/24 07/23/24 History tablet buspirone 5 mg tablet 5 mg PO TID 07/19/24 07/22/24 History desvenlafaxine succinate 50 mg 50 mg PO DAILY 07/19/24 07/23/24 History tablet,extended release 24 hr colestipol 1 gram tablet 1 g PO BID 07/23/24 07/23/24 History New Prescriptions to Start Prescriptions: Allergies Allergy/AdvReac Type Severity Reaction Status Date / Time No Known Allergies Allergy Verified 07/16/24 13:25 Exam (Inpt) Vital signs and Labs for Last 24 Hours: Temp Pulse Resp BP Pulse Ox O2 Del Method 99.2 F 106 H 18 147/78 H 99 Room Air 07/23/24 08:00 07/23/24 08:00 07/23/24 08:00 07/23/24 08:00 07/23/24 08:00 07/23/24 08:00 Laboratory Results - last 24 hr 07/22/24 11:08: WBC 17.1 H, RBC 5.08, Hgb 14.9, Hct 42.7, MCV 84.1, MCH 29.3, MCHC 34.9, RDW 12.1, Plt Count 281, MPV 11.8 H, Neut % (Auto) 71.7, Lymph % (Auto) 17.5, [place] % (Auto) 8.5, Eos % (Auto) 1.0, Baso % (Auto) 0.5, Neut # (Auto) 12.3 H, Lymph # (Auto) 3.0, [place] # (Auto) 1.5 H, Eos # (Auto) 0.2, Baso # (Auto) 0.1, Total Counted 100, Neutrophils % (Manual) 75, Lymphocytes % (Manual) 18, Monocytes % (Manual) 7, Platelet Estimate Normal, Microcytosis 1+, Sodium 137, Potassium 3.3 L, Chloride 98, Carbon Dioxide 27, Anion Gap 15.3 H, BUN 11, Creatinine 0.90, Estimated Creat Clear 224, Estimated GFR 100, Est GFR ( Amer) 122, Glucose 111 H, Lactate 1.8, Calcium 9.2, Total Bilirubin 0.9, AST 38, ALT 56, Alkaline Phosphatase 76, Total Protein 7.3, Albumin 4.7, Globulin 2.6, Albumin/Globulin Ratio 1.8, Lipase 103, HCV Ab EMILY w/Rflx PCR Qn Negative, HIV Ag/Ab Combo Qual Negative 07/22/24 22:38: Urine Color Dark yellow, Urine Appearance Clear, Urine pH 6.0, Ur Specific [place] >= 1.030, Urine Protein Negative, Urine Glucose (UA) Negative, Urine Ketones Negative, Urine Blood Negative, Urine Nitrate Negative, Urine Bilirubin Negative, Urine Urobilinogen 1.0, Ur Leukocyte Esterase Negative, Urine RBC None, Urine WBC None, Ur Squamous Epith Cells Occasional, Urine Bacteria None 07/22/24 23:00: SARS-CoV-2 (PCR) Not detected, Influenza A Untype (PCR) Not detected, Influenza Type B (PCR) Not detected 07/23/24 04:20: WBC 15.8 H, RBC 4.99, Hgb 14.7, Hct 42.9, MCV 86.0, MCH 29.5, MCHC 34.3, RDW 12.3, Plt Count 245, MPV 11.8 H, Neut % (Auto) 69.6, Lymph % (Auto) 18.6, [place] % (Auto) 9.5 H, Eos % (Auto) 1.1, Baso % (Auto) 0.4, Neut # (Auto) 11.0 H, Lymph # (Auto) 2.9, [place] # (Auto) 1.5 H, Eos # (Auto) 0.2, Baso # (Auto) 0.1, Total Counted 100, Neutrophils % (Manual) 75, Lymphocytes % (Manual) 21, Monocytes % (Manual) 3, Eosinophils % (Manual) 1, Platelet Estimate Normal, RBC Morphology Normal, PT 9.8, INR 0.88 L, Sodium 138, Potassium 3.2 L, Chloride 99, Carbon Dioxide 31 H, Anion Gap 11.2, BUN 11, Creatinine 0.90, Estimated Creat Clear 224, Estimated GFR 100, Est GFR ( Amer) 122, Glucose 93, Calcium 8.7, Phosphorus 4.3, Magnesium 2.2 I & O for Labs for Last 24 Hours: Intake & Output 07/20/24 07/21/24 07/22/24 07/23/24 11:59 11:59 11:59 11:59 Output Total 0 / 0 Balance 0 / 0 Weight 286 lb Comments:: Abdomen soft. He does have tenderness in the left lower quadrant with voluntary guarding. Results Labs 07/23/24 04:20 07/23/24 04:20 Labs: Laboratory Results - last 24 hr 07/22/24 11:08: WBC 17.1 H, RBC 5.08, Hgb 14.9, Hct 42.7, MCV 84.1, MCH 29.3, MCHC 34.9, RDW 12.1, Plt Count 281, MPV 11.8 H, Neut % (Auto) 71.7, Lymph % (Auto) 17.5, [place] % (Auto) 8.5, Eos % (Auto) 1.0, Baso % (Auto) 0.5, Neut # (Auto) 12.3 H, Lymph # (Auto) 3.0, [place] # (Auto) 1.5 H, Eos # (Auto) 0.2, Baso # (Auto) 0.1, Total Counted 100, Neutrophils % (Manual) 75, Lymphocytes % (Manual) 18, Monocytes % (Manual) 7, Platelet Estimate Normal, Microcytosis 1+, Sodium 137, Potassium 3.3 L, Chloride 98, Carbon Dioxide 27, Anion Gap 15.3 H, BUN 11, Creatinine 0.90, Estimated Creat Clear 224, Estimated GFR 100, Est GFR ( Amer) 122, Glucose 111 H, Lactate 1.8, Calcium 9.2, Total Bilirubin 0.9, AST 38, ALT 56, Alkaline Phosphatase 76, Total Protein 7.3, Albumin 4.7, Globulin 2.6, Albumin/Globulin Ratio 1.8, Lipase 103, HCV Ab EMILY w/Rflx PCR Qn Negative, HIV Ag/Ab Combo Qual Negative 07/22/24 22:38: Urine Color Dark yellow, Urine Appearance Clear, Urine pH 6.0, Ur Specific [place] >= 1.030, Urine Protein Negative, Urine Glucose (UA) Negative, Urine Ketones Negative, Urine Blood Negative, Urine Nitrate Negative, Urine Bilirubin Negative, Urine Urobilinogen 1.0, Ur Leukocyte Esterase Negative, Urine RBC None, Urine WBC None, Ur Squamous Epith Cells Occasional, Urine Bacteria None 07/22/24 23:00: SARS-CoV-2 (PCR) Not detected, Influenza A Untype (PCR) Not detected, Influenza Type B (PCR) Not detected 07/23/24 04:20: WBC 15.8 H, RBC 4.99, Hgb 14.7, Hct 42.9, MCV 86.0, MCH 29.5, MCHC 34.3, RDW 12.3, Plt Count 245, MPV 11.8 H, Neut % (Auto) 69.6, Lymph % (Auto) 18.6, [place] % (Auto) 9.5 H, Eos % (Auto) 1.1, Baso % (Auto) 0.4, Neut # (Auto) 11.0 H, Lymph # (Auto) 2.9, [place] # (Auto) 1.5 H, Eos # (Auto) 0.2, Baso # (Auto) 0.1, Total Counted 100, Neutrophils % (Manual) 75, Lymphocytes % (Manual) 21, Monocytes % (Manual) 3, Eosinophils % (Manual) 1, Platelet Estimate Normal, RBC Morphology Normal, PT 9.8, INR 0.88 L, Sodium 138, Potassium 3.2 L, Chloride 99, Carbon Dioxide 31 H, Anion Gap 11.2, BUN 11, Creatinine 0.90, Estimated Creat Clear 224, Estimated GFR 100, Est GFR ( Amer) 122, Glucose 93, Calcium 8.7, Phosphorus 4.3, Magnesium 2.2 Assessment and Plan *Assessment and plan (1) Diverticulitis of sigmoid colon: Status: Acute Category: Medical Code(s): K57.32 - Diverticulitis of large intestine without perforation or abscess without bleeding Plan At this time plan for attempt at nonoperative management for acute, mildly complicated, diverticulitis. He may start a clear liquid diet carefully. Continue IV antibiotics. Hopefully shows continued improvement with nonoperative management. Advocate for outpatient colonoscopy if able to be managed nonoperatively. I did explain to the patient however he could have refractory diverticulitis or develop clinical regression in need of surgical intervention.
--- NOTE | 2024-07-23 08:42 | HMH.PHAINT1 ---
Pharmacy Intervention Comments: HOME MEDICATION LIST VERIFIED USING LIST FROM OUTPATIENT PHARMACY
[2024-07-23 11:32] VITALS: BMI 35.3
--- NOTE | 2024-07-23 11:37 | DIET.NUTRFU ---
per rounds Dr kenney and Ramírez want to start on clear liquids to see how he is going to tolerate diet.
--- NOTE | 2024-07-23 14:43 | PC.NURSE ---
Pt tolerated clear liquid diet with no c/o N/V or pain.
[2024-07-23 16:00] VITALS: BP 145/82; PULSE 91; RESP 18; TEMP 37.2; O2SAT 98
[2024-07-23] MEDS: PIPERCILLIN/TAZO 3.375 GM in 0.9 % SODIUM CHLORIDE 50 ML IV ×2 (16:23→20:47)
--- NOTE | 2024-07-23 17:48 | P.CONS_ITS ---
History of Present Illness *Admission Date: 07/23/24 *History of present illness: Patient is a 28-year-old male from [facility] (Former[facility]), hospital employee, with history of nonalcoholic fatty liver disease, hypertension, anxiety/depression, prior cholecystectomy who presented to the emergency department overnight with progressive lower abdominal pain. This initially began about 3 or 4 days ago in the suprapubic region and radiated to the perineal area. He had associated pressure. He has had some change in bowel habits with chronic diarrhea and had been started on medication which has given him some constipation with frequent small bowel movements. Evaluation in the emergency department revealed mild leukocytosis of 17,000. CT scan revealed inflammatory changes of the sigmoid colon with surrounding fat stranding with some possibility of extraluminal regional air raising the possibility of possible microperforation. Given the leukocytosis, mild fever, and imaging findings consistent with possible complicated diverticulitis patient was admitted for inpatient management and official surgical consultation. The patient prior to this was having very loose bowel movements, bowel frequency and some bowel urgency. He was placed on colestipol and this caused him to be bound up with more significant constipation. The patient reports no rectal bleeding. He did stop the colestipol on Tuesday. He developed a fever yesterday to 1018 and came to the emergency department where he had the CAT scan showing sigmoid diverticulitis with probable microperforation. White cell count yesterday was 17,000. He has had moderate bloating and gassiness and the gassiness is little bit worse. He had a paternal grandmother with diverticulitis and a paternal great grandmother with colon cancer. He has had no prior colonoscopy. [facility] Disclaimer: The information contained in this section may have been updated after the patient was seen, as this information can be updated by other users. Medical History FHx: SVT (supraventricular tachycardia) Hypertension Seasonal allergies Surgical History History of radiofrequency ablation procedure for cardiac arrhythmia H/O shoulder surgery History of cholecystectomy H/O cardiac radiofrequency ablation Family History Other No significant family history Social History Smoking Status: Current every day smoker tobacco type: cigarettes packs per day: 1 alcohol intake: never current occupational status: employed and other Travel in the last 8 weeks: None household members: spouse and children housing: house current occupational exposures/hazards: No caffeine: No Have you lived/traveled outside [place] in past 30 days?: No Contact w/someone who lives/traveled outside US past 30 days?: No Exposure to someone with infectious disease in past 14 days?: No Do you have a fever (greater than 100.4 F or 38 C)?: Yes Have you tested positive for COVID-19: No Exposed to someone with COVID-19 in past 14 days?: No Do you have a sore throat?: No Do you have a cough?: No Do you have any weakness?: No Do you have any diarrhea?: No Are you experiencing any unusual bleeding?: No Do you have any muscle aches/pain?: No Do you have any abdominal pain?: Yes Are you experiencing loss of taste or smell?: No Meds Home Medications and Allergies Home Medications ?Medication ?Instructions ?Recorded ?Confirmed ?Type cetirizine 10 mg capsule (Zyrtec) 10 mg PO DAILY PRN Congestion 10/06/23 07/22/24 History fluticasone propionate 50 1 spray intranasal DAILY PRN Runny 10/06/23 07/22/24 History mcg/actuation nasal Nose spray,suspension (Flonase Allergy Relief) amlodipine 10 mg-olmesartan 20 mg 1 tab PO DAILY 07/19/24 07/23/24 History tablet buspirone 5 mg tablet 5 mg PO TID 07/19/24 07/22/24 History desvenlafaxine succinate 50 mg 50 mg PO DAILY 07/19/24 07/23/24 History tablet,extended release 24 hr colestipol 1 gram tablet 1 g PO BID 07/23/24 07/23/24 History New Prescriptions to Start Prescriptions: Allergies Allergy/AdvReac Type Severity Reaction Status Date / Time No Known Allergies Allergy Verified 07/16/24 13:25 Exam (Inpt) Vital signs and Labs for Last 24 Hours: Temp Pulse Resp BP Pulse Ox O2 Del Method 98.9 F 91 H 18 145/82 H 98 Room Air 07/23/24 16:00 07/23/24 16:00 07/23/24 16:00 07/23/24 16:00 07/23/24 16:00 07/23/24 17:00 Laboratory Results - last 24 hr 07/22/24 11:08: WBC 17.1 H, RBC 5.08, Hgb 14.9, Hct 42.7, MCV 84.1, MCH 29.3, MCHC 34.9, RDW 12.1, Plt Count 281, MPV 11.8 H, Neut % (Auto) 71.7, Lymph % (Auto) 17.5, [place] % (Auto) 8.5, Eos % (Auto) 1.0, Baso % (Auto) 0.5, Neut # (Auto) 12.3 H, Lymph # (Auto) 3.0, [place] # (Auto) 1.5 H, Eos # (Auto) 0.2, Baso # (Auto) 0.1, Total Counted 100, Neutrophils % (Manual) 75, Lymphocytes % (Manual) 18, Monocytes % (Manual) 7, Platelet Estimate Normal, Microcytosis 1+, Sodium 137, Potassium 3.3 L, Chloride 98, Carbon Dioxide 27, Anion Gap 15.3 H, BUN 11, Creatinine 0.90, Estimated Creat Clear 224, Estimated GFR 100, Est GFR ( Amer) 122, Glucose 111 H, Lactate 1.8, Calcium 9.2, Total Bilirubin 0.9, AST 38, ALT 56, Alkaline Phosphatase 76, Total Protein 7.3, Albumin 4.7, Globulin 2.6, Albumin/Globulin Ratio 1.8, Lipase 103, HCV Ab EMILY w/Rflx PCR Qn Negative, HIV Ag/Ab Combo Qual Negative 07/22/24 22:38: Urine Color Dark yellow, Urine Appearance Clear, Urine pH 6.0, Ur Specific [place] >= 1.030, Urine Protein Negative, Urine Glucose (UA) Negative, Urine Ketones Negative, Urine Blood Negative, Urine Nitrate Negative, Urine Bilirubin Negative, Urine Urobilinogen 1.0, Ur Leukocyte Esterase Negative, Urine RBC None, Urine WBC None, Ur Squamous Epith Cells Occasional, Urine Bacteria None 07/22/24 23:00: SARS-CoV-2 (PCR) Not detected, Influenza A Untype (PCR) Not detected, Influenza Type B (PCR) Not detected 07/23/24 04:20: WBC 15.8 H, RBC 4.99, Hgb 14.7, Hct 42.9, MCV 86.0, MCH 29.5, MCHC 34.3, RDW 12.3, Plt Count 245, MPV 11.8 H, Neut % (Auto) 69.6, Lymph % (Auto) 18.6, [place] % (Auto) 9.5 H, Eos % (Auto) 1.1, Baso % (Auto) 0.4, Neut # (Auto) 11.0 H, Lymph # (Auto) 2.9, [place] # (Auto) 1.5 H, Eos # (Auto) 0.2, Baso # (Auto) 0.1, Total Counted 100, Neutrophils % (Manual) 75, Lymphocytes % (Manual) 21, Monocytes % (Manual) 3, Eosinophils % (Manual) 1, Platelet Estimate Normal, RBC Morphology Normal, PT 9.8, INR 0.88 L, Sodium 138, Potassium 3.2 L, Chloride 99, Carbon Dioxide 31 H, Anion Gap 11.2, BUN 11, Creatinine 0.90, Estimated Creat Clear 224, Estimated GFR 100, Est GFR ( Amer) 122, Glucose 93, Calcium 8.7, Phosphorus 4.3, Magnesium 2.2 I & O for Labs for Last 24 Hours: Intake & Output 07/20/24 07/21/24 07/22/24 07/23/24 23:59 23:59 23:59 23:59 Intake Total 360 / 360 Output Total 0 / 0 Balance 360 / 360 Weight 286 lb 284 lb 6.341 oz GI: Present tenderness Comments:: Normoactive bowel sounds, moderate tenderness in the left lower quadrant without rebound or guarding, no masses Results Labs 07/23/24 04:20 07/23/24 04:20 Labs: Laboratory Results - last 24 hr 07/22/24 11:08: WBC 17.1 H, RBC 5.08, Hgb 14.9, Hct 42.7, MCV 84.1, MCH 29.3, MCHC 34.9, RDW 12.1, Plt Count 281, MPV 11.8 H, Neut % (Auto) 71.7, Lymph % (Auto) 17.5, [place] % (Auto) 8.5, Eos % (Auto) 1.0, Baso % (Auto) 0.5, Neut # (Auto) 12.3 H, Lymph # (Auto) 3.0, [place] # (Auto) 1.5 H, Eos # (Auto) 0.2, Baso # (Auto) 0.1, Total Counted 100, Neutrophils % (Manual) 75, Lymphocytes % (Manual) 18, Monocytes % (Manual) 7, Platelet Estimate Normal, Microcytosis 1+, Sodium 137, Potassium 3.3 L, Chloride 98, Carbon Dioxide 27, Anion Gap 15.3 H, BUN 11, Creatinine 0.90, Estimated Creat Clear 224, Estimated GFR 100, Est GFR ( Amer) 122, Glucose 111 H, Lactate 1.8, Calcium 9.2, Total Bilirubin 0.9, AST 38, ALT 56, Alkaline Phosphatase 76, Total Protein 7.3, Albumin 4.7, Globulin 2.6, Albumin/Globulin Ratio 1.8, Lipase 103, HCV Ab EMILY w/Rflx PCR Qn Negative, HIV Ag/Ab Combo Qual Negative 07/22/24 22:38: Urine Color Dark yellow, Urine Appearance Clear, Urine pH 6.0, Ur Specific [place] >= 1.030, Urine Protein Negative, Urine Glucose (UA) Negative, Urine Ketones Negative, Urine Blood Negative, Urine Nitrate Negative, Urine Bilirubin Negative, Urine Urobilinogen 1.0, Ur Leukocyte Esterase Negative, Urine RBC None, Urine WBC None, Ur Squamous Epith Cells Occasional, Urine Bacteria None 07/22/24 23:00: SARS-CoV-2 (PCR) Not detected, Influenza A Untype (PCR) Not detected, Influenza Type B (PCR) Not detected 07/23/24 04:20: WBC 15.8 H, RBC 4.99, Hgb 14.7, Hct 42.9, MCV 86.0, MCH 29.5, MCHC 34.3, RDW 12.3, Plt Count 245, MPV 11.8 H, Neut % (Auto) 69.6, Lymph % (Auto) 18.6, [place] % (Auto) 9.5 H, Eos % (Auto) 1.1, Baso % (Auto) 0.4, Neut # (Auto) 11.0 H, Lymph # (Auto) 2.9, [place] # (Auto) 1.5 H, Eos # (Auto) 0.2, Baso # (Auto) 0.1, Total Counted 100, Neutrophils % (Manual) 75, Lymphocytes % (Manual) 21, Monocytes % (Manual) 3, Eosinophils % (Manual) 1, Platelet Estimate Normal, RBC Morphology Normal, PT 9.8, INR 0.88 L, Sodium 138, Potassium 3.2 L, Chloride 99, Carbon Dioxide 31 H, Anion Gap 11.2, BUN 11, Creatinine 0.90, Estimated Creat Clear 224, Estimated GFR 100, Est GFR ( Amer) 122, Glucose 93, Calcium 8.7, Phosphorus 4.3, Magnesium 2.2 Assessment and Plan *Assessment and plan (1) Diverticulitis of large intestine with complication: Status: Acute Category: Medical Code(s): K57.32 - Diverticulitis of large intestine without perforation or abscess without bleeding (2) Diverticulitis of sigmoid colon: Status: Acute Category: Medical Code(s): K57.32 - Diverticulitis of large intestine without perforation or abscess without bleeding Plan 1. Acute sigmoid diverticulitis with apparent fever and microperforation. This is early complicated diverticulitis. There is certainly a clinical and radiologic spectrum with diverticulitis (from very mild to very severe). From a standpoint of radiology spectrum, uncomplicated diverticulitis on imaging ( as well as clinical symptoms is much milder) can range from very little inflammatory imaging findings to evidence of colonic wall thickening, adjacent inflammation with adjacent fat stranding. Complicated diverticulitis also entails a spectrum from moderate to severe (which often also follows clinical history) and imaging findings may range from microperforation with some contained air outside of the lumen to macroperforation causing localized inflammation which may progress to localized abscess. A localized abscess can rupture and this can develop into abbie peritonitis (purulence or feculent), stricture or even fistulization to adjacent structures. We are more apt to treat complicated diverticulitis especially at a younger age with surgical repair of the sigmoid colon. Of course uncomplicated diverticulitis would be managed medically. I would continue antibiotics. We have discussed outpatient management with dietary measures and psyllium fiber (not colestipol). I will have him follow-up in the office in 3 to 4 weeks and then arrange outpatient colonoscopy.
--- NOTE | 2024-07-23 18:34 | PC.NURSE ---
Pt diet has been advanced from clears to full liquid diet. Pt has tolerated this well with no complaints of N/V or pain. Pt resting in bed most of day with family at bedside. Call light in reach.
[2024-07-23 19:49] VITALS: BP 155/71; PULSE 98; RESP 16; TEMP 36.9; O2SAT 98
[2024-07-24] MEDS: PIPERCILLIN/TAZO 3.375 GM in 0.9 % SODIUM CHLORIDE 50 ML IV ×2 (03:55→08:40)
[2024-07-24 04:00] VITALS: BP 123/68; PULSE 71; RESP 16; TEMP 36.7; O2SAT 98; BMI 35.2
--- NOTE | 2024-07-24 04:37 | PC.NURSE ---
Pt A&OX4 and has tolerated room air. Lung sounds clear and bowel sounds active. He has tolerated diet well and has denied any abdominal pain or N/V. He has received IV ABX. He has ambulated the room independently. Family member has remained at bedside. No complaints at this time, call light within reach.
[2024-07-24 06:46] LABS: Basophils # 0.1 K/mm3 (0-0.2); Basophils % 0.6 % (0.1-2.0); Eosinophils # 0.4 K/mm3 (0.0-0.4); Eosinophils % 3.4 % (0.1-12.0); Hematocrit 42.4 % (42.0-52.0); Hemoglobin 14.1 g/dL (14.1-18.0); Lymphocytes # 2.7 K/mm3 (0.7-4.5); Mean Corpuscular HGB Conc 33.3 g/dL (31.8-35.4); Mean Corpuscular Volume 87.2 fl (80-94); Mean Platelet Volume 11.7 fl (7.4-10.4); Monocytes # 0.9 K/mm3 (0.1-1.0); Monocytes % 8.6 % (1.7-9.3); Neutrophils # 6.7 K/mm3 (1.8-7.8); Neutrophils % 61.8 % (37.0-80.0); Platelet Count 231 K/mm3 (142-424); Red Blood Count 4.86 M/mm3 (4.60-6.20); Red Cell Distribution Width 12.2 % (11.5-17.5); White Blood Count 10.8 K/mm3 (4.8-10.8)
[2024-07-24 07:05] LABS: Albumin Level 4.2 g/dl (3.5-5.0); Chloride 102 mmol/L (98-107); Potassium 4.1 mmoL/L (3.5-5.1); Sodium 140 mmol/L (136-145)
[2024-07-24 07:07] LABS: Blood Urea Nitrogen 7 mg/dl (9-20); Creatinine Clearance Estimated 222 mL/min (50-200); Estimated Glomerular Filt Rate 100 ml/min (>60); GFR (African American) 122 ML/MIN (>60)
[2024-07-24 07:08] LABS: Alanine Aminotransferase 58 U/L (12-78); Albumin/Globulin Ratio 1.5 (1.1-1.8); Alkaline Phosphatase 71 U/L (38-126); Anion Gap 10.1 mEq/L (5-15); Aspartate Amino Transferase 39 U/L (17-59); Calcium 8.9 mg/dl (8.4-10.2); Carbon Dioxide 32 mmol/L (22.0-30.0); Globulin 2.8 g/dL (1.3-3.2); Glucose 89 mg/dl (74-100)
[2024-07-24 07:09] LABS: Magnesium 2.4 mg/dl (1.6-2.3)
[2024-07-24 08:00] VITALS: BP 157/81; PULSE 84; RESP 16; TEMP 36.8; O2SAT 99
--- NOTE | 2024-07-24 08:07 | P.PN_ITS ---
Subjective *Date: 07/24/24 *Time: 08:07 Interval history: Patient is markedly improving. He is tolerating liquids today. Exam Data for Last 24 hours Vital signs and Labs for Last 24 Hours: Temp Pulse Resp BP Pulse Ox O2 Del Method 98.1 F 71 16 123/68 98 Room Air 07/24/24 04:00 07/24/24 04:00 07/24/24 04:00 07/24/24 04:00 07/24/24 04:00 07/24/24 06:38 Laboratory Results - last 24 hr 07/24/24 05:53: WBC 10.8 D, RBC 4.86, Hgb 14.1, Hct 42.4, MCV 87.2, MCH 29.0, MCHC 33.3, RDW 12.2, Plt Count 231, MPV 11.7 H, Neut % (Auto) 61.8, Lymph % (Auto) 25.0, [place] % (Auto) 8.6, Eos % (Auto) 3.4, Baso % (Auto) 0.6, Neut # (Auto) 6.7, Lymph # (Auto) 2.7, [place] # (Auto) 0.9, Eos # (Auto) 0.4, Baso # (Auto) 0.1, Sodium 140, Potassium 4.1 D, Chloride 102, Carbon Dioxide 32 H, Anion Gap 10.1, BUN 7 L D, Creatinine 0.90, Estimated Creat Clear 222, Estimated GFR 100, Est GFR ( Amer) 122, Glucose 89, Calcium 8.9, Magnesium 2.4 H, Total Bilirubin 1.0, AST 39, ALT 58, Alkaline Phosphatase 71, Total Protein 7.0, Albumin 4.2, Globulin 2.8, Albumin/Globulin Ratio 1.5 I & O for Last 24 hours: Intake & Output 07/21/24 07/22/24 07/23/24 07/24/24 23:59 23:59 23:59 23:59 Intake Total 840 / 1040 200 / 200 Output Total 0 / 0 0 / 0 Balance 840 / 1040 200 / 200 Weight 286 lb 284 lb 6.341 oz 283 lb Microbiology Reports for the Last 24 Hours: Microbiology 07/22/24 23:41 Blood Blood Culture - Preliminary NO GROWTH AFTER 24 HOURS 07/22/24 23:41 Blood Blood Culture - Preliminary NO GROWTH AFTER 24 HOURS *Routine Abdominal Exam Abdominal: Present soft and tenderness Comments: Normoactive bowel sounds, soft, mild tenderness in the deeper left lower quadrant, no rebound or guarding, no masses, no hernias Assessment and Plan *Assessment and plan (1) Diverticulitis of large intestine with complication: Status: Acute Category: Medical Code(s): K57.32 - Diverticulitis of large intestine without perforation or abscess without bleeding Plan 1. Sigmoid diverticulitis with probable microperforation and associated higher fever (101.8). There is still a consensus that patients with pericolonic air bubbles can be managed the same way as uncomplicated diverticulitis with decent success rate nonoperative medical management. This is certainly true that there is not an associated abscess. As long as he is doing well today, I would switch from IV to oral antibiotics (Augmentin plus Flagyl) x 14 days. I would recommend colonoscopy in 6 to 8 weeks. Some data suggest that diverticulitis management should not be based on the patient's age but rather the severity of the disease.
--- NOTE | 2024-07-24 08:12 | EXP.SURG.PN ---
Subjective Narrative: No issues. Patient states that his abdominal pain is about the same . Tolerating clear liquids. Exam Data for Last 24 hours Vital signs and Labs for Last 24 Hours: Temp Pulse Resp BP Pulse Ox O2 Del Method 98.1 F 71 16 123/68 98 Room Air 07/24/24 04:00 07/24/24 04:00 07/24/24 04:00 07/24/24 04:00 07/24/24 04:00 07/24/24 06:38 Laboratory Results - last 24 hr 07/24/24 05:53: WBC 10.8 D, RBC 4.86, Hgb 14.1, Hct 42.4, MCV 87.2, MCH 29.0, MCHC 33.3, RDW 12.2, Plt Count 231, MPV 11.7 H, Neut % (Auto) 61.8, Lymph % (Auto) 25.0, [place] % (Auto) 8.6, Eos % (Auto) 3.4, Baso % (Auto) 0.6, Neut # (Auto) 6.7, Lymph # (Auto) 2.7, [place] # (Auto) 0.9, Eos # (Auto) 0.4, Baso # (Auto) 0.1, Sodium 140, Potassium 4.1 D, Chloride 102, Carbon Dioxide 32 H, Anion Gap 10.1, BUN 7 L D, Creatinine 0.90, Estimated Creat Clear 222, Estimated GFR 100, Est GFR ( Amer) 122, Glucose 89, Calcium 8.9, Magnesium 2.4 H, Total Bilirubin 1.0, AST 39, ALT 58, Alkaline Phosphatase 71, Total Protein 7.0, Albumin 4.2, Globulin 2.8, Albumin/Globulin Ratio 1.5 I & O for Last 24 hours: Intake & Output 07/21/24 07/22/24 07/23/24 07/24/24 11:59 11:59 11:59 11:59 Intake Total 1040 / 1040 Output Total 0 / 0 0 / 0 Balance 0 / 0 1040 / 1040 Weight 284 lb 6.341 oz 283 lb Microbiology Reports for the Last 24 Hours: Microbiology 07/22/24 23:41 Blood Blood Culture - Preliminary NO GROWTH AFTER 24 HOURS 07/22/24 23:41 Blood Blood Culture - Preliminary NO GROWTH AFTER 24 HOURS *Routine Abdominal Exam Abdominal: Present soft Comments: No appreciable tenderness. Progress Note: A&P Assessment and plan (1) Diverticulitis of large intestine with complication: Status: Acute (2) Diverticulitis of sigmoid colon: Status: Acute Assessment and Plan Assessment and Plan for All Diagnoses:: Although patient states subjectively his abdominal pain is relatively unchanged he does seem to be clinically improved with normalization of white blood cell count and less tenderness on examination. May be reasonable to advance diet. If tolerated possible discharge on oral antibiotics with outpatient follow-up. Recommend limiting to low residue diet after discharge.
--- NOTE | 2024-07-24 12:36 | EXP.DC.SUM ---
General Admission date:: 07/23/24 HPI HPI HPI: Patient is a 28-year-old male from [facility], hospital employee, with history of nonalcoholic fatty liver disease, hypertension, anxiety/depression, prior cholecystectomy who presented to the emergency department overnight with progressive lower abdominal pain. This initially began about 3 or 4 days ago in the suprapubic region and radiated to the perineal area. He had associated pressure. He has had some change in bowel habits with chronic diarrhea and had been started on medication which has given him some constipation with frequent small bowel movements. Evaluation in the emergency department revealed mild leukocytosis of 17,000. CT scan revealed inflammatory changes of the sigmoid colon with surrounding fat stranding with some possibility of extraluminal regional air raising the possibility of possible microperforation. Given the leukocytosis, mild fever, and imaging findings consistent with possible complicated diverticulitis patient was admitted for inpatient management and official surgical consultation. The patient prior to this was having very loose bowel movements, bowel frequency and some bowel urgency. He was placed on colestipol and this caused him to be bound up with more significant constipation. The patient reports no rectal bleeding. He did stop the colestipol on Tuesday. He developed a fever yesterday to 1018 and came to the emergency department where he had the CAT scan showing sigmoid diverticulitis with probable microperforation. White cell count yesterday was 17,000. He has had moderate bloating and gassiness and the gassiness is little bit worse. He had a paternal grandmother with diverticulitis and a paternal great grandmother with colon cancer. He has had no prior colonoscopy. Hospital Course Hospital Course Hospital Course: Frank Sofia is a 28-year-old male with a medical history significant for hypertension, anxiety/depression who presented with abdominal pain and fever at home and was admitted for acute sigmoid diverticulitis. #Acute sigmoid diverticulitis ? Correlates with CT findings, which also notes possible microperforation. ? General Surgery consulted and discussed case, did not recommend surgical intervention at this time. Will have close follow-up postdischarge. ? WBC improved from 15.8-10.8, no signs of sepsis. ? Clinically improved with IV Zosyn, no longer having abdominal pain. ? Tolerating diet well, ambulating without assistance. ? Discharged with ciprofloxacin, metronidazole for 13 more days for total of 14 days. Advised low residue diet, advance as tolerated. ? Will follow-up with general surgery within 2 weeks. Strict return precautions discussed and understood. #Hypertension ? Resume home amlodipine, olmesartan. #Anxiety/depression ? Resume home venlafaxine, buspirone. Total time spent on discharge: 32 minutes on chart review, counseling, documentation, and direct care with patient. Exam Data for Last 24 hours Vital signs and Labs for Last 24 Hours: Temp Pulse Resp BP Pulse Ox O2 Del Method 98.2 F 84 16 157/81 H 99 Room Air 07/24/24 08:00 07/24/24 08:00 07/24/24 08:00 07/24/24 08:00 07/24/24 08:00 07/24/24 08:00 Laboratory Results - last 24 hr 07/24/24 05:53: WBC 10.8 D, RBC 4.86, Hgb 14.1, Hct 42.4, MCV 87.2, MCH 29.0, MCHC 33.3, RDW 12.2, Plt Count 231, MPV 11.7 H, Neut % (Auto) 61.8, Lymph % (Auto) 25.0, Hudspeth % (Auto) 8.6, Eos % (Auto) 3.4, Baso % (Auto) 0.6, Neut # (Auto) 6.7, Lymph # (Auto) 2.7, Hudspeth # (Auto) 0.9, Eos # (Auto) 0.4, Baso # (Auto) 0.1, Sodium 140, Potassium 4.1 D, Chloride 102, Carbon Dioxide 32 H, Anion Gap 10.1, BUN 7 L D, Creatinine 0.90, Estimated Creat Clear 222, Estimated GFR 100, Est GFR ( Amer) 122, Glucose 89, Calcium 8.9, Magnesium 2.4 H, Total Bilirubin 1.0, AST 39, ALT 58, Alkaline Phosphatase 71, Total Protein 7.0, Albumin 4.2, Globulin 2.8, Albumin/Globulin Ratio 1.5 I & O for Last 24 hours: Intake & Output 07/21/24 07/22/24 07/23/24 07/24/24 23:59 23:59 23:59 23:59 Intake Total 840 / 1040 800 / 800 Output Total 0 / 0 0 / 0 Balance 840 / 1040 800 / 800 Weight 129.727 kg 129 kg 128.367 kg Microbiology Reports for the Last 24 Hours: Microbiology 07/22/24 22:54 Urine,Clean Catch Urine Culture - Final Multiple organisms, suggests contamination. 07/22/24 23:41 Blood Blood Culture - Preliminary NO GROWTH AFTER 24 HOURS 07/22/24 23:41 Blood Blood Culture - Preliminary NO GROWTH AFTER 24 HOURS Constitutional Constitutional: no acute distress *Routine HEENT Exam Head: Present normocephalic Eye: Present EOMI and PERRL ENT: Present mucous membranes moist *Routine Neck Exam Neck: Present supple; Absent lymphadenopathy *Routine Respiratory Exam Respiratory: Present CTA bilaterally *Routine Cardiovascular Exam Cardiovascular: Present RRR *Routine Abdominal Exam Abdominal: Present soft Comments: No appreciable tenderness. *Routine Extremities Exam Extremities: Absent cyanosis, clubbing or edema *Routine Skin Exam Skin: Present warm; Absent rash *Routine Neurological Exam Neurological: Present alert and oriented X3 Results Data Completed and Pending Labs on day of discharge: Labs from last 24 hours 07/24/24 05:53 WBC 10.8 D RBC 4.86 Hgb 14.1 Hct 42.4 MCV 87.2 MCH 29.0 MCHC 33.3 RDW 12.2 Plt Count 231 MPV 11.7 H Neut % (Auto) 61.8 Lymph % (Auto) 25.0 Hudspeth % (Auto) 8.6 Eos % (Auto) 3.4 Baso % (Auto) 0.6 Neut # (Auto) 6.7 Lymph # (Auto) 2.7 Hudspeth # (Auto) 0.9 Eos # (Auto) 0.4 Baso # (Auto) 0.1 Sodium 140 Potassium 4.1 D Chloride 102 Carbon Dioxide 32 H Anion Gap 10.1 BUN 7 L D Creatinine 0.90 Estimated Creat Clear 222 Estimated GFR 100 Est GFR ( Amer) 122 Glucose 89 Calcium 8.9 Magnesium 2.4 H Total Bilirubin 1.0 AST 39 ALT 58 Alkaline Phosphatase 71 Total Protein 7.0 Albumin 4.2 Globulin 2.8 Albumin/Globulin Ratio 1.5 Preliminary micro results at discharge 07/22/24 23:41 Blood Culture - Preliminary Blood NO GROWTH AFTER 24 HOURS 07/22/24 23:41 Blood Culture - Preliminary Blood NO GROWTH AFTER 24 HOURS DS: Diagnosis Discharge Diagnosis (1) Diverticulitis of large intestine with complication: Status: Acute Code(s): K57.32 - Diverticulitis of large intestine without perforation or abscess without bleeding Meds Home Medications and Allergies Home Medications ?Medication ?Instructions ?Recorded ?Confirmed ?Type cetirizine 10 mg capsule (Zyrtec) 10 mg PO DAILY PRN Congestion 10/06/23 07/22/24 History fluticasone propionate 50 1 spray intranasal DAILY PRN Runny 10/06/23 07/22/24 History mcg/actuation nasal Nose spray,suspension (Flonase Allergy Relief) amlodipine 10 mg-olmesartan 20 mg 1 tab PO DAILY 07/19/24 07/23/24 History tablet buspirone 5 mg tablet 5 mg PO TID 07/19/24 07/22/24 History desvenlafaxine succinate 50 mg 50 mg PO DAILY 07/19/24 07/23/24 History tablet,extended release 24 hr colestipol 1 gram tablet 1 g PO BID 07/23/24 07/23/24 History ciprofloxacin HCl 500 mg tablet 500 mg PO BID 13 days #26 tabs 07/24/24 Rx (Cipro) metronidazole 500 mg tablet 500 mg PO Q8H 13 days #39 tabs 07/24/24 Rx ondansetron 4 mg disintegrating 4 mg PO Q6H PRN nausea and 07/30/24 Rx tablet vomiting #10 tabs New Prescriptions to Start Prescriptions: ciprofloxacin HCl [Cipro] Bryan Cuevas metronidazole Bryan Cuevas Allergies Allergy/AdvReac Type Severity Reaction Status Date / Time No Known Allergies Allergy Verified 07/16/24 13:25 Discharge Plan Disposition Patient Disposition: Home, Self-Care Condition: Fair Discharge Order Discharge Orders: Discharge Order (Routine); Ordered 07/24/24 Ordered By: Bryan Cuevas Follow up Plan Follow up with: Jose Billings MD [Staff Physician] - 08/09/24 9:00 am Jeff Cutler II, MD [Staff Physician] - 10/23/24 11:30 am Yessi Zhong APRN [Primary Care Provider] - 07/30/24 10:15 am Prescriptions/Medication Reconciliation: New ciprofloxacin HCl [Cipro] 500 mg tablet 500 mg PO BID 13 Days Qty: 26 0RF metronidazole 500 mg tablet 500 mg PO Q8H 13 Days Qty: 39 0RF Continued Zyrtec 10 mg capsule 10 mg PO DAILY PRN (Reason: Congestion) fluticasone propionate [Flonase Allergy Relief] 50 mcg/actuation spray,suspension 1 spray intranasal DAILY PRN (Reason: Runny Nose) Rx Instructions: administer into each nostril amlodipine-olmesartan 10-20 mg tablet 1 tab PO DAILY desvenlafaxine succinate 50 mg tablet extended release 24 hr 50 mg PO DAILY buspirone 5 mg tablet 5 mg PO TID colestipol 1 gram tablet 1 g PO BID No Action ondansetron 4 mg tablet,disintegrating 4 mg PO Q6H PRN (Reason: nausea and vomiting) Qty: 10 0RF Problem Reconciliation Problems Reviewed?: Yes Patient Discharge Instructions Stand Alone Forms: [facility] Work Release Patient Instructions: DI for Diverticulitis, DI for Abdominal Pain-Adult, DI for Paroxysmal Supraventricular Tachycardia Print Language: [place] Providers Primary Care Provider: Yessi Zhong Admit Provider: Carlos Eduardo Carlos Attending Provider: Carlos Eduardo Carlos
[2024-07-24 21:32] LABS: Neisseria gonorrhoeae, NAA Negative (Negative)
--- NOTE | 2024-07-25 10:17 | SW/DCPLANNER ---
Patient stated that he is doing pretty good. Patient stated that he is aware of his upcoming appointments. Patient stated that [facility] medicine to him on the day of his discharge. Patient stated that he has no concerns or questions at this time. Melecio Suazo
== END 2024-07-24 14:25 | disposition home or self-care (01) | DRG 392 ==
LOC: ER 22:39 → 2ND 07-23 00:27
PROVIDERS: Nurse Practitioner Family; Admitting Provider Internal Medicine Adolescent Medicine; Emergency Provider Emergency Medicine; PCP Nurse Practitioner Family; Visit Provider Internal Medicine Adolescent Medicine
DX: K57.32 Diverticulitis of large intestine without perforation or abscess without bleeding (principal); K76.0 Fatty (change of) liver, not elsewhere classified; E87.6 Hypokalemia; I10 Essential (primary) hypertension; F17.210 Nicotine dependence, cigarettes, uncomplicated; Z79.899 Other long term (current) drug therapy; Z80.0 Family history of malignant neoplasm of digestive organs
CPT/HCPCS: 36415; 74177; 80048; 80053; 81001; 83605; 83690; 83735; 84100; 85007; 85025; 85610; 86803; 87040; 87086; 87389; 87491; 87591; 87636; 99285; J0131; J2543; J7030; J7120; Q9967

== ENCOUNTER 2024-07-30 12:27 | Emergency (ER) | payer OTHER, SELFPAY ==
[2024-07-30 12:28] VITALS: BP 142/95; PULSE 113; RESP 20; TEMP 36.9; O2SAT 100; BMI 35.7
--- NOTE | 2024-07-30 12:36 | CT_ITS ---
FINAL REPORT TECHNIQUE: Thin section axial images are obtained through the abdomen and pelvis after intravenous contrast. Reconstruction images were obtained from the axial data. Exam was performed using dose reduction techniques. CLINICAL HISTORY: abd pain/n/v/fever, recent perf diverticulitis COMPARISON: 07/22/2024 FINDINGS: LUNG BASES: There are several small nodules in the inferior right upper lobe, which were not included on the prior CT of 07/23/2024. The largest measures 5 mm in size. The lung bases are otherwise clear. Heart size is normal. LIVER: Homogeneous. No focal lesion. GALLBLADDER/BILIARY SYSTEM: The gallbladder has been surgically resected. No biliary dilatation. SPLEEN: Unremarkable. PANCREAS: Unremarkable. ADRENALS: Unremarkable. KIDNEYS/URETERS/BLADDER: No hydronephrosis, renal mass, or renal stone. Unremarkable urinary bladder. GI TRACT: No small bowel obstruction or dilatation. Normal appendix. There has been interval improvement in the sigmoid diverticulitis. The previously seen air in the sigmoid mesocolon has resolved. PELVIC ORGANS: Unremarkable for age. LYMPH NODES/RETROPERITONEUM/MESENTERY: No lymphadenopathy. No abdominal aortic aneurysm. ABDOMINAL WALL: The abdominal wall is intact. FREE FLUID: No ascites. BONES: No acute osseous abnormality. IMPRESSION: Interval improvement in the previously visualized sigmoid diverticulitis. The previously seen air in the sigmoid mesocolon has resolved. No adenopathy or free fluid is identified. Prior cholecystectomy. Reviewed, Interpreted and Dictated by Emmie Jasso MD Transcribed by Lynda Cuba Authenticated and . [facility]
[2024-07-30 12:46] VITALS: BP 119/73; PULSE 94; O2SAT 97
--- NOTE | 2024-07-30 12:49 | ECG_ITS ---
APPROVED REPORT Exam: Resting ECG HR:95 bpm ECG Measurements Heart Rate 95 AXES IN 144 P 21 QRSd 106 QRS 20 QT 323 T -1 QTc 376 Conclusion SINUS RHYTHM MINIMAL VOLTAGE CRITERIA FOR LVH, CONSIDER NORMAL VARIANT [MEETS CRITERIA IN ONE OF: R(aVL), S(V1), R(V5), R(V5/V6)+S(V1)] Electronically signed by : AVA OROURKE, 07/30/2024 15:10:26
[2024-07-30 12:51] LABS: Coronavirus 19, PCR Not Detected (NotDetected); Influenza A, PCR Not Detected (NotDetected); Influenza B, PCR Not Detected (NotDetected)
--- NOTE | 2024-07-30 12:51 | ED_ITS ---
Discharge Plan Disposition Patient Disposition: Home, Self-Care Prescriptions Prescriptions: New ondansetron 4 mg tablet,disintegrating 4 mg PO Q6H PRN (Reason: nausea and vomiting) Qty: 10 0RF No Action Zyrtec 10 mg capsule 10 mg PO DAILY PRN (Reason: Congestion) fluticasone propionate [Flonase Allergy Relief] 50 mcg/actuation spray,suspension 1 spray intranasal DAILY PRN (Reason: Runny Nose) Rx Instructions: administer into each nostril amlodipine-olmesartan 10-20 mg tablet 1 tab PO DAILY desvenlafaxine succinate 50 mg tablet extended release 24 hr 50 mg PO DAILY buspirone 5 mg tablet 5 mg PO TID colestipol 1 gram tablet 1 g PO BID ciprofloxacin HCl [Cipro] 500 mg tablet 500 mg PO BID 13 Days Qty: 26 0RF metronidazole 500 mg tablet 500 mg PO Q8H 13 Days Qty: 39 0RF Referrals Follow up/Referrals: Yessi Zhong APRN [Primary Care Provider] - See instructions Activity Restrictions/Add. Instructions Additional Instructions/Restrictions: Call your family doctor to establish care for this visit to the emergency department and schedule follow-up within 48 hours to ensure improvement. If you have any worsening of your condition or any other concerning signs or symptoms, return to the emergency department or your primary care doctor for further evaluation. Clinical Impressions Clinical Impression: Abdominal pain, Fever Instructions Patient Instructions: DI for Acute Abdominal Pain Print Language Print Language: [place] Discharge ED Provider: [facility] HPI <Carmen Rock DO - Last Filed: 07/30/24 16:02> General Chief complaint: Abdominal Pain Stated complaint: fever 100.4 v/n abd pain Time Seen by Provider: 07/30/24 12:32 Mode of Arrival: Ambulatory Source of Information: Patient Limitations: No Limitations Description of Symptoms (Recalled from ER Triage Doc. by RN): pt seen here recently for diverticulous, pt states yesterday he got worse fever abd pain n/v/d. pt still taking flagyl and cipro that he was d/c [facility] with. pt is tachy upon triage but no fever and has not had any otc meds History of Present Illness HPI narrative: This patient is a 28-year-old male with a history of obesity, hypertension, and recent admission for diverticulitis that was perforated presenting to the emergency department for evaluation concern for abdominal pain, fever, nausea. Patient states that he was discharged on Cipro and Flagyl, which he is still been taking, and he had been doing okay up until Tuesday when he started feeling bad again. He is having some lower abdominal pain, nausea, vomiting. He notes that he then spiked a fever today, Tmax 104 ?F. He denies any other complaints, such a sore throat, cough, congestion, dysuria, or other obvious causes of fever. Related Data Home Medications ?Medication ?Instructions ?Recorded ?Confirmed cetirizine 10 mg capsule (Zyrtec) 10 mg PO DAILY PRN Congestion 10/06/23 07/22/24 fluticasone propionate 50 1 spray intranasal DAILY PRN Runny 10/06/23 07/22/24 mcg/actuation nasal Nose spray,suspension (Flonase Allergy Relief) amlodipine 10 mg-olmesartan 20 mg 1 tab PO DAILY 07/19/24 07/23/24 tablet buspirone 5 mg tablet 5 mg PO TID 07/19/24 07/22/24 desvenlafaxine succinate 50 mg 50 mg PO DAILY 07/19/24 07/23/24 tablet,extended release 24 hr colestipol 1 gram tablet 1 g PO BID 07/23/24 07/23/24 Previous Rx's ?Medication ?Instructions ?Recorded ciprofloxacin HCl 500 mg tablet 500 mg PO BID 13 days #26 tabs 07/24/24 (Cipro) metronidazole 500 mg tablet 500 mg PO Q8H 13 days #39 tabs 07/24/24 ondansetron 4 mg disintegrating 4 mg PO Q6H PRN nausea and 07/30/24 tablet vomiting #10 tabs Allergies Allergy/AdvReac Type Severity Reaction Status Date / Time No Known Allergies Allergy Verified 07/16/24 13:25 [facility] <Carmen Rock DO - Last Filed: 07/30/24 16:02> [facility] Disclaimer: The information contained in this section may have been updated after the patient was seen, as this information can be updated by other users. Medical History Abnormal electrocardiogram [ECG] [EKG] Chills Abdominal pain, acute, epigastric Urinary tract infection Pain, dental Nausea & vomiting SIRS (systemic inflammatory response syndrome) Enteritis due to Norovirus Abdominal pain Left wrist sprain Cellulitis and abscess of foot Right hip pain Shoulder dislocation, recurrent Sinusitis Flu-like symptoms Nausea vomiting and diarrhea Recurrent dislocation, right shoulder Otitis media Strain of lumbar region FHx: SVT (supraventricular tachycardia) Hypertension Seasonal allergies Surgical History History of radiofrequency ablation procedure for cardiac arrhythmia H/O shoulder surgery History of cholecystectomy H/O cardiac radiofrequency ablation Family History Other No significant family history Social History Smoking Status: Current every day smoker tobacco type: cigarettes packs per day: 1 alcohol intake: never current occupational status: employed and other Travel in the last 8 weeks: None household members: spouse and children housing: house current occupational exposures/hazards: No caffeine: No Have you lived/traveled outside [place] in past 30 days?: No Contact w/someone who lives/traveled outside US past 30 days?: No Exposure to someone with infectious disease in past 14 days?: No Do you have a fever (greater than 100.4 F or 38 C)?: Yes Have you tested positive for COVID-19: No Exposed to someone with COVID-19 in past 14 days?: No Do you have a sore throat?: No Do you have a cough?: No Do you have any weakness?: No Do you have any diarrhea?: No Are you experiencing any unusual bleeding?: No Do you have any muscle aches/pain?: No Do you have any abdominal pain?: Yes Are you experiencing loss of taste or smell?: No Other Medical History Have you received the Flu Vaccine for this season: No Have you received the Pneumonia Vaccine: No <Carmen Rock DO - Last Filed: 07/30/24 16:02> ROS Obtained: Yes All systems reviewed & no additional complaints except as documented Physical Exam <Carmen Rock DO - Last Filed: 07/30/24 16:02> General General appearance: alert and in no apparent distress Head Head exam: atraumatic and normocephalic Eye Eye exam: Present normal appearance, PERRL and EOMI ENT ENT exam: Present normal exam, normal oropharynx, mucous membranes moist and normal external ear exam Neck Neck exam: Present normal inspection, full ROM and trachea midline; Absent tenderness Chest Chest inspection: Present normal inspection and symmetric chest wall rise; Absent tenderness Respiratory Respiratory exam: Present normal lung sounds bilaterally; Absent respiratory distress, wheezes, stridor or accessory muscle use Cardiovascular Cardiovascular exam: Present regular rate and normal rhythm Abdominal Exam Abdominal exam: Present soft and tenderness (Lower abdomen); Absent distention, guarding, rebound or rigidity Extremities Exam Extremities exam: Present normal inspection, full ROM and normal capillary refill; Absent tenderness or edema Back Exam Back exam: Present normal inspection and full ROM; Absent tenderness Neurological Exam Neurological exam: Present alert, oriented X3, CN II-XII intact and normal gait; Absent motor sensory deficit Psychiatric Psychiatric exam: Present normal affect and normal mood Skin Skin exam: Present warm and dry Medical Decision Making <Carmen Rock DO - Last Filed: 07/30/24 16:02> Medical Records Medical records reviewed: Yes I reviewed the patient's medical records. Screening: Per USPSTF and CDC recommendations, given the prevalence of disease in our region, it is our hospital?s policy to screen for HIV and viral Hepatitis for all patients aged 18 and over and those with ongoing risk factors. Ankit Inquiry Pt receiving controlled substance: No Vital Signs: 07/30/24 12:28 07/30/24 12:46 07/30/24 13:00 Temperature 98.4 F Temperature Source Oral Pulse Rate 94 H 101 H Pulse Rate [Left Radial] 113 H Respiratory Rate 20 25 H Blood Pressure 119/73 129/87 Blood Pressure [Right Arm] 142/95 H Blood Pressure Mean [Right Arm] 110 02 Sat by Pulse Oximetry 100 97 97 Oxygen Delivery Method Room Air Room Air Room Air 07/30/24 13:30 Temperature Temperature Source Pulse Rate 95 H Pulse Rate [Left Radial] Respiratory Rate 24 Blood Pressure 148/89 H Blood Pressure [Right Arm] Blood Pressure Mean [Right Arm] 02 Sat by Pulse Oximetry 97 Oxygen Delivery Method Room Air Lab Data Lab results reviewed: Yes I reviewed the patient's lab results. Lab Results 07/30/24 12:30: WBC 9.8, RBC 5.49, Hgb 16.2, Hct 46.9, MCV 85.4, MCH 29.5, MCHC 34.5, RDW 12.2, Plt Count 329, MPV 11.7 H, Neut % (Auto) 75.5, Lymph % (Auto) 16.6, [place] % (Auto) 5.5, Eos % (Auto) 1.1, Baso % (Auto) 0.4, Neut # (Auto) 7.4, Lymph # (Auto) 1.6, [place] # (Auto) 0.5, Eos # (Auto) 0.1, Baso # (Auto) 0.0, Sodium 140, Potassium 3.6, Chloride 98, Carbon Dioxide 27, Anion Gap 18.6 H, BUN 11, Creatinine 1.00, Estimated Creat Clear 202, Estimated GFR 89, Est GFR ( Amer) 108, Glucose 110 H, Lactate 2.6 H, Calcium 9.2, Total Bilirubin 0.7, AST 67 H, ALT 99 H, Alkaline Phosphatase 65, C-Reactive Protein 5.7 H, Total Protein 8.1, Albumin 5.2 H, Globulin 2.9, Albumin/Globulin Ratio 1.8, Lipase 80, Procalcitonin 0.167 07/30/24 12:49: SARS-CoV-2 (PCR) Not detected, Influenza A Untype (PCR) Not detected, Influenza Type B (PCR) Not detected 07/30/24 14:45: Urine Color Yellow, Urine Appearance Clear, Urine pH 5.5, Ur Specific [place] 1.010, Urine Protein Negative, Urine Glucose (UA) Negative, Urine Ketones Negative, Urine Blood Negative, Urine Nitrate Negative, Urine Bilirubin Negative, Urine Urobilinogen 0.2, Ur Leukocyte Esterase Negative, Urine RBC Occasional, Urine WBC None, Ur Squamous Epith Cells None, Urine Bacteria None 07/30/24 12:30 07/30/24 12:30 Orders (Tests/Meds): ED MEDICATIONS Generic Name Dose Route Start Last Admin Trade Name Freq PRN Reason Stop Dose Admin Sodium Chloride 10 ml 07/30/24 13:43 07/30/24 13:44 Sodium Chloride 0.9% 10ml Syr (Rad Only) IV 08/29/24 13:42 10 ml NEEDED PRN Administration Maintain IV Site Discontinued Medications Generic Name Dose Route Start Last Admin Trade Name Freq PRN Reason Stop Dose Admin Acetaminophen 1,000 mg 07/30/24 12:38 07/30/24 12:52 Acetaminophen 1,000mg/100ml Vial IV 07/30/24 12:39 1,000 mg ONCE ONE Administration Lactated Ringer's 1,000 mls @ 999 mls/hr 07/30/24 12:38 07/30/24 12:52 Lactated Ringer's 1000 Ml Bag IV 07/30/24 13:38 999 mls/hr .Q1H1M ONE Administration Iopamidol 75 ml 07/30/24 13:43 07/30/24 13:43 Iopamidol-370 (76%);100ml Bottle IV 07/30/24 13:44 75 ml ONCE ONE Administration Ketorolac Tromethamine 15 mg 07/30/24 12:38 07/30/24 12:52 Ketorolac 30mg/Ml Vial IV 07/30/24 12:39 15 mg ONCE ONE Administration Ondansetron HCl 4 mg 07/30/24 12:38 07/30/24 12:52 Ondansetron 4mg/2ml Vial IV 07/30/24 12:39 4 mg ONCE ONE Administration ORDERS Category Date Time Status CT abdomen pelvis w con Stat Cat Scan 07/30/24 12:36 Completed CRP [C-Reactive Protein] Stat Lab 07/30/24 12:30 Completed Complete Blood Count Auto Diff Stat Lab 07/30/24 12:30 Completed Comprehensive Metabolic Panel Stat Lab 07/30/24 12:30 Completed Lactic Acid Follow Up (RFLX 1) Stat Lab 07/30/24 16:54 Ordered Lactic Acid Stat Lab 07/30/24 12:30 Completed Lipase Stat Lab 07/30/24 12:30 Completed Procalcitonin Stat Lab 07/30/24 12:30 Completed Rapid PCR Covid and Flu A/B Stat Lab 07/30/24 12:49 Completed UA [Urinalysis and Microscopic] Stat Lab 07/30/24 14:45 Completed Blood Culture Stat Micro 07/30/24 12:36 Received ECG Data Tracing #1: I reviewed this ECG and interpreted as documented below: Normal sinus rhythm with a ventricular rate of [address] changes concerning for ischemia. Normal intervals ECG initial impression date: 07/30/24 ECG initial impression time: 12:50 Medical Decision Narrative: In summary, this patient is a 28-year-old male presenting to the Emergency Department for evaluation of fever, abdominal pain, nausea, vomiting in setting of recent perforated diverticulitis. Differential diagnoses considered include but are not limited to perforated diverticulitis, pelvic abscess, sepsis, gastroenteritis, viral syndrome, pneumonia, urinary tract infection. Ruling out the most morbid conditions drove assessment. It should be noted patient's history includes obesity, hypertension, diverticulitis which are not at goal therapy. This complicates all aspects of care by increasing patient's risk for morbidity. I reviewed patient's past medical records and noted admission 07/23/2024 for perforated diverticulitis and discharged 07/24/2024 on antibiotics. On exam, the patient is febrile but nontoxic-appearing. Patient has lower abdominal tenderness. No rebound or guarding. Workup included CBC, CMP, lipase, lactic acid, CRP, procalcitonin, blood cultures, urinalysis, viral swab, CT abdomen pelvis with IV contrast. He was given a bolus of IV fluids as well as IV Zofran, Toradol, acetaminophen. On reassessment, the patient is sitting upright in no acute distress. Vitals reassuring on cardiac telemetry. CBC demonstrates normal white blood cell count at 9.8. Chemistry demonstrates mildly elevated anion gap, consistent with the vomiting and possible mild dehydration. Lactic acid mildly elevated 2.6. He has very mild transaminitis, which is not sniffily changed from prior. Procalcitonin and CRP are not significantly elevated. I independently interpreted CT scan prior to radiology read and I did not see any large pelvic abscess or free air. CT read pending at time of signout to oncoming provider, Dr. Easton. <Link Easton MD - Last Filed: 07/30/24 17:22> Vital Signs: 07/30/24 12:28 07/30/24 12:46 07/30/24 13:00 Temperature 98.4 F Temperature Source Oral Pulse Rate 94 H 101 H Pulse Rate [Left Radial] 113 H Respiratory Rate 20 25 H Blood Pressure 119/73 129/87 Blood Pressure [Right Arm] 142/95 H Blood Pressure Mean [Right Arm] 110 02 Sat by Pulse Oximetry 100 97 97 Oxygen Delivery Method Room Air Room Air Room Air 07/30/24 13:30 Temperature Temperature Source Pulse Rate 95 H Pulse Rate [Left Radial] Respiratory Rate 24 Blood Pressure 148/89 H Blood Pressure [Right Arm] Blood Pressure Mean [Right Arm] 02 Sat by Pulse Oximetry 97 Oxygen Delivery Method Room Air Lab Data Lab Results 07/30/24 12:30: WBC 9.8, RBC 5.49, Hgb 16.2, Hct 46.9, MCV 85.4, MCH 29.5, MCHC 34.5, RDW 12.2, Plt Count 329, MPV 11.7 H, Neut % (Auto) 75.5, Lymph % (Auto) 16.6, [place] % (Auto) 5.5, Eos % (Auto) 1.1, Baso % (Auto) 0.4, Neut # (Auto) 7.4, Lymph # (Auto) 1.6, [place] # (Auto) 0.5, Eos # (Auto) 0.1, Baso # (Auto) 0.0, Sodium 140, Potassium 3.6, Chloride 98, Carbon Dioxide 27, Anion Gap 18.6 H, BUN 11, Creatinine 1.00, Estimated Creat Clear 202, Estimated GFR 89, Est GFR ( Amer) 108, Glucose 110 H, Lactate 2.6 H, Calcium 9.2, Total Bilirubin 0.7, AST 67 H, ALT 99 H, Alkaline Phosphatase 65, C-Reactive Protein 5.7 H, Total Protein 8.1, Albumin 5.2 H, Globulin 2.9, Albumin/Globulin Ratio 1.8, Lipase 80, Procalcitonin 0.167 07/30/24 12:49: SARS-CoV-2 (PCR) Not detected, Influenza A Untype (PCR) Not detected, Influenza Type B (PCR) Not detected 07/30/24 14:45: Urine Color Yellow, Urine Appearance Clear, Urine pH 5.5, Ur Specific [place] 1.010, Urine Protein Negative, Urine Glucose (UA) Negative, Urine Ketones Negative, Urine Blood Negative, Urine Nitrate Negative, Urine Bilirubin Negative, Urine Urobilinogen 0.2, Ur Leukocyte Esterase Negative, Urine RBC Occasional, Urine WBC None, Ur Squamous Epith Cells None, Urine Bacteria None Orders (Tests/Meds): ED MEDICATIONS Generic Name Dose Route Start Last Admin Trade Name Freq PRN Reason Stop Dose Admin Sodium Chloride 10 ml 07/30/24 13:43 07/30/24 13:44 Sodium Chloride 0.9% 10ml Syr (Rad Only) IV 08/29/24 13:42 10 ml NEEDED PRN Administration Maintain IV Site Discontinued Medications Generic Name Dose Route Start Last Admin Trade Name Freq PRN Reason Stop Dose Admin Acetaminophen 1,000 mg 07/30/24 12:38 07/30/24 12:52 Acetaminophen 1,000mg/100ml Vial IV 07/30/24 12:39 1,000 mg ONCE ONE Administration Lactated Ringer's 1,000 mls @ 999 mls/hr 07/30/24 12:38 07/30/24 12:52 Lactated Ringer's 1000 Ml Bag IV 07/30/24 13:38 999 mls/hr .Q1H1M ONE Administration Iopamidol 75 ml 07/30/24 13:43 07/30/24 13:43 Iopamidol-370 (76%);100ml Bottle IV 07/30/24 13:44 75 ml ONCE ONE Administration Ketorolac Tromethamine 15 mg 07/30/24 12:38 07/30/24 12:52 Ketorolac 30mg/Ml Vial IV 07/30/24 12:39 15 mg ONCE ONE Administration Ondansetron HCl 4 mg 07/30/24 12:38 07/30/24 12:52 Ondansetron 4mg/2ml Vial IV 07/30/24 12:39 4 mg ONCE ONE Administration ORDERS Category Date Time Status CT abdomen pelvis w con Stat Cat Scan 07/30/24 12:36 Completed CRP [C-Reactive Protein] Stat Lab 07/30/24 12:30 Completed Complete Blood Count Auto Diff Stat Lab 07/30/24 12:30 Completed Comprehensive Metabolic Panel Stat Lab 07/30/24 12:30 Completed Lactic Acid Follow Up (RFLX 1) Stat Lab 07/30/24 16:54 Ordered Lactic Acid Stat Lab 07/30/24 12:30 Completed Lipase Stat Lab 07/30/24 12:30 Completed Procalcitonin Stat Lab 07/30/24 12:30 Completed Rapid PCR Covid and Flu A/B Stat Lab 07/30/24 12:49 Completed UA [Urinalysis and Microscopic] Stat Lab 07/30/24 14:45 Completed Blood Culture Stat Micro 07/30/24 12:36 Received Medical Decision Narrative: In summary, this patient is a 28-year-old male presenting to the Emergency Department for evaluation of fever, abdominal pain, nausea, vomiting in setting of recent perforated diverticulitis. Differential diagnoses considered include but are not limited to perforated diverticulitis, pelvic abscess, sepsis, gastroenteritis, viral syndrome, pneumonia, urinary tract infection. Ruling out the most morbid conditions drove assessment. It should be noted patient's history includes obesity, hypertension, diverticulitis which are not at goal therapy. This complicates all aspects of care by increasing patient's risk for morbidity. I reviewed patient's past medical records and noted admission 07/23/2024 for perforated diverticulitis and discharged 07/24/2024 on antibiotics. On exam, the patient is febrile but nontoxic-appearing. Patient has lower abdominal tenderness. No rebound or guarding. Workup included CBC, CMP, lipase, lactic acid, CRP, procalcitonin, blood cultures, urinalysis, viral swab, CT abdomen pelvis with IV contrast. He was given a bolus of IV fluids as well as IV Zofran, Toradol, acetaminophen. On reassessment, the patient is sitting upright in no acute distress. Vitals reassuring on cardiac telemetry. CBC demonstrates normal white blood cell count at 9.8. Chemistry demonstrates mildly elevated anion gap, consistent with the vomiting and possible mild dehydration. Lactic acid mildly elevated 2.6. He has very mild transaminitis, which is not sniffily changed from prior. Procalcitonin and CRP are not significantly elevated. I independently interpreted CT scan prior to radiology read and I did not see any large pelvic abscess or free air. CT read pending at time of signout to oncoming provider, Dr. Easton. Jemma: I assumed primary responsibility for this patient after signout from previous physician. I independently interpreted patient's workup, no leukocytosis and white cell count is not particularly neutrophilic. Differential normal. Patient's chemistry nonactionable. Lactate mildly elevated at 2.6, but this is not consistent with sepsis as patient is nontachycardic 70 to 75 bpm, normotensive 130/84. Nontachypneic breathing 19 times a minute. AST and ALT mildly elevated, could be consistent with fatty liver disease versus viral syndrome. CRP 5.7, unremarkable. Urinalysis unremarkable. Independent interpretation of patient's CT scan without intra- abdominal pathology. On my evaluation, patient in no acute distress. Abdomen is benign. Anxious, but eventually agreeable to home-going. Recommended he follow-up with his family doctor closely. Because patient at baseline without signs or symptoms of clinical decompensation, deemed appropriate for discharge. Results were relayed to patient who voiced understanding and were agreeable to outpatient management and follow up. I discussed my clinical impression with patient and answered all questions. At this time, the evidence for any other entities in the differential is insufficient to warrant any further testing or ED observation. This was explained as well. Advisory was given that persistent or worsening symptoms require further evaluation. I confirmed the understanding of this discussion. Critical Care <Carmen Rock, DO - Last Filed: 07/30/24 16:02> Critical Care Time Critical Care Time: No
[2024-07-30] MEDS: ONDANSETRON 4MG/2ML VIAL 4 MG IV (12:52)
[2024-07-30] MEDS: LACTATED RINGERS 1000ML 1,000 ML 999 ML IV (12:52)
[2024-07-30] MEDS: ACETAMINOPHEN 1,000MG/100ML VIAL 1000 MG IV (12:52)
[2024-07-30] MEDS: KETOROLAC 30MG/ML VIAL 15 MG IV (12:52)
[2024-07-30 13:00] VITALS: BP 129/87; PULSE 101; RESP 25; O2SAT 97
[2024-07-30 13:02] LABS: Basophils % 0.4 % (0.1-2.0); Eosinophils # 0.1 K/mm3 (0.0-0.4); Eosinophils % 1.1 % (0.1-12.0); Hematocrit 46.9 % (42.0-52.0); Hemoglobin 16.2 g/dL (14.1-18.0); Lymphocytes # 1.6 K/mm3 (0.7-4.5); Lymphocytes % 16.6 % (10-50); Mean Corpuscular HGB Conc 34.5 g/dL (31.8-35.4); Mean Corpuscular Hemoglobin 29.5 pg (27.0-31.2); Mean Corpuscular Volume 85.4 fl (80-94); Mean Platelet Volume 11.7 fl (7.4-10.4); Monocytes # 0.5 K/mm3 (0.1-1.0); Monocytes % 5.5 % (1.7-9.3); Neutrophils # 7.4 K/mm3 (1.8-7.8); Neutrophils % 75.5 % (37.0-80.0); Platelet Count 329 K/mm3 (142-424); Red Blood Count 5.49 M/mm3 (4.60-6.20); Red Cell Distribution Width 12.2 % (11.5-17.5); White Blood Count 9.8 K/mm3 (4.8-10.8)
[2024-07-30 13:12] LABS: Alanine Aminotransferase 99 U/L (12-78); Albumin Level 5.2 g/dl (3.5-5.0); Albumin/Globulin Ratio 1.8 (1.1-1.8); Alkaline Phosphatase 65 U/L (38-126); Anion Gap 18.6 mEq/L (5-15); Aspartate Amino Transferase 67 U/L (17-59); Bilirubin,Total 0.7 mg/dl (0.2-1.3); Blood Urea Nitrogen 11 mg/dl (9-20); Calcium 9.2 mg/dl (8.4-10.2); Carbon Dioxide 27 mmol/L (22.0-30.0); Chloride 98 mmol/L (98-107); Creatinine Clearance Estimated 202 mL/min (50-200); Estimated Glomerular Filt Rate 89 ml/min (>60); GFR (African American) 108 ML/MIN (>60); Globulin 2.9 g/dL (1.3-3.2); Glucose 110 mg/dl (74-100); Lipase 80 U/L (23-300); Potassium 3.6 mmoL/L (3.5-5.1); Sodium 140 mmol/L (136-145); Total Protein,Serum 8.1 g/dl (6.3-8.2)
[2024-07-30 13:17] LABS: C-Reactive Protein 5.7 mg/L (0-4)
[2024-07-30 13:19] LABS: Lactic Acid 2.6 mmol/L (0.7-2.1)
[2024-07-30 13:30] VITALS: BP 148/89; PULSE 95; RESP 24; O2SAT 97
[2024-07-30 13:30] LABS: Procalcitonin 0.167 ng/mL (0.0-2.0)
[2024-07-30] MEDS: IOPAMIDOL-370 (76%);100ML BOTTLE 75 ML IV (13:43)
[2024-07-30] MEDS: SODIUM CHLORIDE 0.9% 10ML SYR (RAD ONLY) 10 ML IV (13:44)
[2024-07-30 14:48] LABS: Microscopic, Urine URINE MICROSCOPIC (MICROSCOPIC)
[2024-07-30 15:14] LABS: Appearance,Urine CLEAR (Clear); Bilirubin,Urine Negative (Negative); Blood, Urine Negative (Negative); Color,Urine YELLOW (Yellow); Glucose,Urine (UA) Negative (Negative); Ketones,Urine Negative (Negative); Leukocyte Esterase,Urine Negative (Negative); Nitrate,Urine Negative (Negative); PH,Urine 5.5 (5.0-8.5); Protein,Urine Negative (Negative); Urobilinogen,Urine 0.2 EU/dl (0.2)
[2024-07-30 15:30] LABS: RBC,Urine Occasional #/hpf (0-3)
--- NOTE | 2024-07-30 15:30 | PC.NURSE ---
called radiology for an update on ct scan that was aken 3 hours ago and per trader it is currently locked and being read, er md and charge nurse made aware
--- NOTE | 2024-07-30 16:00 | PC.NURSE ---
ER MD has called radiology about scans being read as this has delayed patient care several hours, provided patient with an update that everything is done and stable from nursing standpoint.
[2024-07-30 16:54] LABS: Reflex Lactic Add Lactic Reflex
--- NOTE | 2024-07-30 16:58 | PC.NURSE ---
rounded with patient and let him know that he had no been forgotten about and that radiology had delayed his care by several hours and that an incident report will be made. pt states hes is okay and denies any needs at this time
--- NOTE | 2024-07-30 17:07 | PC.NURSE ---
repeat lactic sent to lab
[2024-07-30 17:29] VITALS: BP 128/84; PULSE 75; RESP 18; TEMP 36.9; O2SAT 98
[2024-07-30 21:24] LABS: Lactic Acid Follow Up (RFLX 1) 0.9 mmol/L (0.7-2.1)
== END 2024-07-30 17:30 | disposition home or self-care (01) ==
PROVIDERS: Emergency Medicine; Emergency Provider Emergency Medicine; PCP Nurse Practitioner Family
DX: R10.30 Lower abdominal pain, unspecified (principal); R50.9 Fever, unspecified; R11.2 Nausea with vomiting, unspecified; R19.7 Diarrhea, unspecified; F17.210 Nicotine dependence, cigarettes, uncomplicated
CPT/HCPCS: 74177; 80053; 81001; 83605; 83690; 84145; 85025; 86140; 87040; 87636; 93005; 96361; 96374; 96375; 99285; J0131; J1885; J2405; J7120; Q9967

== ENCOUNTER 2024-08-03 07:29 | Outpatient (CLI) | payer OTHER, SELFPAY ==
--- NOTE | 2024-08-03 07:30 | US_ITS ---
FINAL REPORT TECHNIQUE: Ultrasound images of the kidneys and bladder were obtained. CLINICAL HISTORY: Z86.79 - Personal history of other diseases of the circul... FINDINGS: The right kidney measures 11.5 cm in length. It is normal in echogenicity. There is no hydronephrosis. The left kidney measures 12.5 cm in length. It is normal in echogenicity. There is no hydronephrosis. The spleen is mildly enlarged. IMPRESSION: Mildly enlarged spleen. Reviewed, Interpreted and Dictated by Emmie Jasso MD Transcribed by Victoria Shah Authenticated and [facility]
--- NOTE | 2024-08-03 07:35 | CA_ITS ---
FINAL REPORT TECHNIQUE: Ultrasound images of the kidneys were obtained. Duplex Doppler of the renal arteries, RAR and RI also obtained. Spectral analysis was performed. CLINICAL HISTORY: HTN FINDINGS: Aortic velocity is measured at 124 cm/sec. The right kidney measures 14.0 cm in length. No hydronephrosis, cortical thinning, or mass. RAR is 0.66-0.70. Peak systolic velocity is elevated at 242 cm/sec. RI is 1.96. Less than 60% renal artery stenosis. The left kidney measures 12.3 cm in length. No hydronephrosis, cortical thinning, or mass. RAR is 0.62-0.64. Peak systolic velocity is 174 cm/sec. RI is 1.40. No evidence of renal artery stenosis or chronic renal disease. IMPRESSION: Less than 60% renal artery stenosis on the right. No evidence of renal artery stenosis on the left. Reviewed, Interpreted and Dictated by Emmie Jasso MD Transcribed by Lucila Herring Authenticated and [facility]
== END 2024-08-03 23:59 | disposition home or self-care (01) ==
LOC: RAD 07:30
PROVIDERS: PCP Nurse Practitioner Family; Visit Provider Physician Assistant
DX: R10.9 Unspecified abdominal pain (principal); Z86.79 Personal history of other diseases of the circulatory system; R94.31 Abnormal electrocardiogram [ECG] [EKG]; I10 Essential (primary) hypertension
CPT/HCPCS: 76770; 93976

== ENCOUNTER 2024-08-27 08:20 | Outpatient (CLI) | payer OTHER, SELFPAY ==
--- NOTE | 2024-08-27 08:22 | CA_ITS ---
APPROVED REPORT EXAM: Comprehensive 2D, Doppler, and color-flow Echocardiogram Hull Builder: Amelia Wise CRT Ht: 6 ft 3 in Wt: 284lbs BSA: 2.55 BP: 137/84 mmHg Indications: Hypertension/HDD, smoker, abn ekg, SVT, LVH 2D Dimensions LA Volume 32.00 mL LA Volume Index 12.30 mL/m2 (M/F) 16-34 M-Mode Dimensions RVDd 2.15 cm (0.9-2.6) LA Diam 3.35 cm (1.9-4.0) LVDd 6.19 cm (3.5-5.7) LVDs 4.12 cm (3.5-5.7) IVSd 1.04 cm (0.6-1.1) PWd 0.84 cm (0.6-1.1) EF (Teich) 61.10% FS 33.40% EDV (Teich) 193.30 mL ESV (Teich) 75.10 mL LV Diastology E Decel Time 217 (160-240 msec) E/A Ratio 2.15 MED A' 7.60 cm/s LAT A' 8.60 cm/s Aortic Valve AO Peak GR. 5.30 mmHg Mitral Valve MV A Velocity 60.0 (40-130 cm/s) E/A Ratio 2.15 Pulmonary Valve PV Peak Velocity 115.0 (50-150 cm/s) Tricuspid Valve TR P. Velocity 165.00 cm/s RAP Estimate 10.00 mmHg RVSP 20.80 mmHg Left Ventricle The left ventricle is normal size. The left ventricular systolic function is normal. The left ventricular ejection fraction is within the normal range. There is normal left ventricular wall thickness. There is normal LV segmental wall motion. The left ventricular diastolic function is normal. LVEF is 55%. Right Ventricle The right ventricle is borderline dilated. The right ventricular systolic function is normal. Atria The left atrium size is normal. The right atrium size is normal. The interatrial septum is not well-visualized in the study. Aortic Valve Aortic valve opens well. There is no aortic valvular stenosis. No aortic regurgitation is present. Mitral Valve The mitral valve is normal in structure. No evidence of mitral valve stenosis. There is no mitral valve regurgitation noted. Tricuspid Valve Tricuspid valve is grossly normal in structure and function. Trace tricuspid regurgitation. There is insufficient TR jet to estimate RVSP. Trace pulmonic regurgitation. Pulmonic Valve The pulmonary valve is normal in structure. Great Vessels The aortic root is normal in size. IVC is normal in size and collapses >50% with inspiration. Pericardium There is no pericardial effusion. Other Information Study Quality: Fair Conclusion Normal biventricular systolic function. Borderline RV dilation with normal RV function. No significant valvular stenosis or regurgitation. In the setting of young age with borderline RV dilation, further evaluation with limited TTE + agitated saline administration (bubble study) is suggested to evaluate for interatrial shunt. Electronically signed by : Janneth Santiago MD 09/02/2024 21:44:25
== END 2024-08-27 23:59 | disposition home or self-care (01) ==
LOC: RT 08:21
PROVIDERS: PCP Nurse Practitioner Family; Visit Provider Physician Assistant
DX: I34.0 Nonrheumatic mitral (valve) insufficiency (principal); I51.7 Cardiomegaly
CPT/HCPCS: 93306

== ENCOUNTER 2024-09-13 07:01 | Day surgery (SDC) | payer OTHER, SELFPAY ==
[2024-09-10 16:42] VITALS: BMI 34.3
[2024-09-13 07:20] VITALS: BP 129/78; PULSE 83; RESP 16; TEMP 36.4; O2SAT 97
[2024-09-13] MEDS: LACTATED RINGERS 1000ML 1,000 ML 50 ML IV (07:25)
--- NOTE | 2024-09-13 08:23 | EXP.ANES.CKL ---
[facility] Disclaimer: The information contained in this section may have been updated after the patient was seen, as this information can be updated by other users. Medical History Tonsillectomy planned Mitral regurgitation LVH (left ventricular hypertrophy) Fever Abdominal pain Diverticulitis of large intestine with complication Abnormal electrocardiogram [ECG] [EKG] Chills Abdominal pain, acute, epigastric Urinary tract infection Pain, dental Nausea & vomiting SIRS (systemic inflammatory response syndrome) Enteritis due to Norovirus Abdominal pain Left wrist sprain Cellulitis and abscess of foot Right hip pain Shoulder dislocation, recurrent Sinusitis Flu-like symptoms Nausea vomiting and diarrhea Recurrent dislocation, right shoulder Otitis media Strain of lumbar region FHx: SVT (supraventricular tachycardia) Hypertension Seasonal allergies Surgical History History of radiofrequency ablation procedure for cardiac arrhythmia H/O shoulder surgery History of cholecystectomy H/O cardiac radiofrequency ablation Family History Other No significant family history Social History Smoking Status: Current every day smoker tobacco type: cigarettes packs per day: 1 alcohol intake: never substance use type: denies use current occupational status: employed and other Travel in the last 8 weeks: None household members: spouse and children housing: house current occupational exposures/hazards: No caffeine: No [facility] Anesthesia Checklist Patient Identification Patient Identification: Verbal (Name & ) Structural Data Admitted From: Home Planned Operative Procedure/s: colonoscopy Consent for Planned Operative Procedure(s) Verified: Yes NPO Status Verified Time NPO: 04:00 Additional verifications Anesthesia Reactions: No Hx Blood Transfusions: No Blood Transfusion Reaction: No Airway Assessment Mallampati Score:: Class II C-Spine Mobility Assessed: Yes TMJ Mobility Assessed: Yes Dentition: Good Dentition (chipped front) Neurological Assessment Level of Consciousness: Awake, Alert and Appropriate Anesthesia Plan Anesthesia Risk discussed: Yes Anesthesia Plan: Verified ASA Class: II Anesthesia Type: MAC
--- NOTE | 2024-09-13 08:23 | EXP.HP ---
History of Present Illness *Admission Date: 09/13/24 *Reason for visit:: Recent diverticulitis-no prior colonoscopy *History of present illness: Mr. Sofia is a 29-year-old gentleman who is here for diagnostic colonoscopy secondary to a recent sigmoid diverticulitis with microperforation. The examination is deemed medically necessary for diagnostic colonoscopy. The patient has been seen, interviewed and examined prior to the procedure by both myself and the anesthesia provider. [facility] Disclaimer: The information contained in this section may have been updated after the patient was seen, as this information can be updated by other users. Medical History (Updated 09/13/24 @ 08:24 by Jeff Cutler II, MD) Tonsillectomy planned Mitral regurgitation LVH (left ventricular hypertrophy) Fever Abdominal pain Diverticulitis of large intestine with complication Abnormal electrocardiogram [ECG] [EKG] Chills Abdominal pain, acute, epigastric Urinary tract infection Pain, dental Nausea & vomiting SIRS (systemic inflammatory response syndrome) Enteritis due to Norovirus Abdominal pain Left wrist sprain Cellulitis and abscess of foot Right hip pain Shoulder dislocation, recurrent Sinusitis Flu-like symptoms Nausea vomiting and diarrhea Recurrent dislocation, right shoulder Otitis media Strain of lumbar region FHx: SVT (supraventricular tachycardia) Hypertension Seasonal allergies Surgical History History of radiofrequency ablation procedure for cardiac arrhythmia H/O shoulder surgery History of cholecystectomy H/O cardiac radiofrequency ablation Family History Other No significant family history Social History Smoking Status: Current every day smoker tobacco type: cigarettes packs per day: 1 alcohol intake: never substance use type: denies use current occupational status: employed and other Travel in the last 8 weeks: None household members: spouse and children housing: house current occupational exposures/hazards: No caffeine: No Other Medical History Have you received the Flu Vaccine for this season: No Have you received the Pneumonia Vaccine: No Review of Systems Review of Systems Review of systems (narrative): Negative *Cardiovascular Comments: Negative *Gastrointestinal Comments: Negative *Genitourinary Comments: Negative *Musculoskeletal Comments: Negative *Neurologic Comments: Negative Meds Home Medications and Allergies Home Medications ?Medication ?Instructions ?Recorded ?Confirmed ?Type cetirizine 10 mg capsule (Zyrtec) 10 mg PO DAILY PRN Congestion 10/06/23 09/10/24 History fluticasone propionate 50 1 spray intranasal DAILY PRN Runny 10/06/23 09/10/24 History mcg/actuation nasal Nose spray,suspension (Flonase Allergy Relief) buspirone 5 mg tablet 5 mg PO TID 07/19/24 09/10/24 History desvenlafaxine succinate 50 mg 50 mg PO DAILY 07/19/24 09/10/24 History tablet,extended release 24 hr ondansetron 4 mg disintegrating 4 mg PO Q6H PRN nausea and 07/30/24 09/10/24 Rx tablet vomiting #10 tabs amlodipine 10 mg-olmesartan 40 mg 1 tab PO DAILY #30 tabs 08/16/24 09/10/24 Rx tablet New Prescriptions to Start Prescriptions: Allergies Allergy/AdvReac Type Severity Reaction Status Date / Time No Known Allergies Allergy Verified 09/13/24 07:19 Exam Data for Last 24 hours Vital signs and Labs for Last 24 Hours: Temp Pulse Resp BP Pulse Ox O2 Del Method 97.6 F 83 16 129/78 97 Room Air 09/13/24 07:20 09/13/24 07:20 09/13/24 07:20 09/13/24 07:20 09/13/24 07:20 09/13/24 07:20 I & O for Last 24 hours: Intake & Output 09/10/24 09/11/24 09/12/24 09/13/24 23:59 23:59 23:59 23:59 Weight 275 lb *Routine HEENT Exam Head: Present normocephalic Eye: Present EOMI and PERRL ENT: Present mucous membranes moist *Routine Neck Exam Neck: Present supple *Routine Respiratory Exam Respiratory: Present CTA bilaterally *Routine Cardiovascular Exam Cardiovascular: Present RRR *Routine Abdominal Exam Abdominal: Present soft and normoactive bowel sounds; Absent tenderness *Routine Rectal Exam Rectal:: deferred *Routine Genitalia Exam Genitalia:: deferred *Routine Extremities Exam Extremities: Absent cyanosis, clubbing or edema *Routine Skin Exam Skin: Present warm; Absent rash *Routine Neurological Exam Neurological: Present alert and oriented X3 Assessment and Plan *Assessment and plan (1) Perforation of sigmoid colon due to diverticulitis: Status: Acute Category: Medical Code(s): K57.20 - Diverticulitis of large intestine with perforation and abscess without bleeding Plan A/P: 1. Recent sigmoid diverticulitis with probable microperforation is the preprocedural diagnosis. The patient will be anesthetized/sedated using MAC sedation. The patient has been seen and examined. Cardiac and lung assessment prior to the examination is stable. Proceed with planned diagnostic colonoscopy
--- NOTE | 2024-09-13 08:25 | HMH.PROCNOTE ---
[facility] Procedure Note Date: 09/13/24 Time: 08:46 Procedure Note:: Colonoscopy Procedure Report: Colonoscopy with cold biopsies Endoscopist: Jeff Cutler II, MD Referring physician: Silvio Roberts M.D. Date of Procedure: September 13, 2024 Equipment: Olympus 190 variable stiffness pediatric colonoscope Sedation: MAC sedation Indication: Mr. Sofia is a 29-year-old gentleman who is here for diagnostic colonoscopy. He was recently admitted on July 23, 2024 because of progressive lower abdominal pain and change in bowel habits. His white blood cell count was 17,000. His CAT scan showed inflammatory changes of the sigmoid colon with surrounding fat stranding and some extraluminal air raising the possibility of possible diverticulitis with microperforation. He was treated with IV antibiotics and completed oral antibiotics. The patient's abdominal pain has significantly improved but he still has constant diarrhea. He has had moderate gassiness and bloating. He reports no rectal bleeding or weight loss. His paternal grandmother had diverticulitis and he had a paternal great grandfather with colon cancer. He has had no prior colonoscopy. I had recommended bulking fiber supplementation which he has not been doing. He did stop the colestipol. He has had prior cholecystectomy. Procedure: Prior to the procedure, a history and physical exam was performed, and patient's medications and allergies were reviewed. The risks, benefits and alternatives of the sedation and procedure were discussed with the patient. All questions were answered and informed consent was obtained. The patient was brought to the procedure room. Patient identification and proposed procedure were verified by the physician and the nurse. The patient was placed in a left lateral decubitus position and the scope was passed under direct vision. Throughout the procedure, the patient's blood pressure, pulse, and oxygen saturations were monitored continuously. The colonoscopy was accomplished without difficulty. The patient tolerated the procedure well. Findings: On digital rectal examination there was normal rectal tone. There were no external hemorrhoids. The colonoscope was introduced through the anal canal to the rectum and advanced to the cecum. The ileocecal valve and appendiceal orifice were identified. The scope was advanced a short distance into the ileum which appeared grossly normal. The scope was then withdrawn into the colon. There were scattered diverticuli throughout the colon but more predominantly in the descending and sigmoid colon (LEFT colon). There was some mild haustral edema in the sigmoid colon with 1 diverticulum having a small inflammatory pseudopolyp within the diverticulum. Random biopsies were taken from the right colon to rule out microscopic colitis. The rectum itself was normal. Upon retroflexion within the rectum there were grade 1-2 internal hemorrhoids. The preparation was excellent throughout with Vinton Preparation Score of 9. The cecal time was 12 minutes. Impression: 1. Pandiverticulosis with evidence of resolving sigmoid diverticulitis 2. Grade 1-2 internal hemorrhoids Plan: The patient did have sigmoid diverticulitis with microperforation. The consensus is that patients with mild microperforation can be managed the same way as uncomplicated diverticulitis with good success rates with nonoperative medical management. I would encourage the patient to resume bulking psyllium fiber supplementation. We will discuss dietary measures. I will follow-up the biopsies to rule out microscopic colitis.
[2024-09-13 08:32] VITALS: O2SAT 100
[2024-09-13 08:53] VITALS: BP 131/71; PULSE 78; RESP 16; O2SAT 95
[2024-09-13 09:03] VITALS: BP 128/66; PULSE 75; RESP 16; O2SAT 97
[2024-09-13 09:13] VITALS: BP 134/77; PULSE 75; RESP 16; O2SAT 97
[2024-09-13 09:21] VITALS: BP 133/78; PULSE 72; RESP 18; O2SAT 99
== END 2024-09-13 09:22 | disposition home or self-care (01) ==
PROVIDERS: PCP Internal Medicine Adolescent Medicine; Visit Provider Internal Medicine Gastroenterology
PROC: 0DJD8ZZ Inspection of Lower Intestinal Tract, Via Natural or Artificial Opening Endoscopic (ICD-10-PCS; CPT 45378; principal; 2024-09-13 08:30)
DX: K57.30 Diverticulosis of large intestine without perforation or abscess without bleeding (principal); K64.8 Other hemorrhoids; K57.20 Diverticulitis of large intestine with perforation and abscess without bleeding; R19.4 Change in bowel habit; R10.30 Lower abdominal pain, unspecified; R19.7 Diarrhea, unspecified; R14.0 Abdominal distension (gaseous)
CPT/HCPCS: 45380; J7120

== ENCOUNTER 2024-09-17 09:29 | Outpatient (CLI) | payer OTHER, SELFPAY ==
--- NOTE | 2024-09-17 09:45 | CA_ITS ---
APPROVED REPORT EXAM: Limited 2D Echocardiogram with contrast Pulmonary Care Nurse: RT Medina(R) Ht: 6 ft 3 in Wt: 284lbs BSA: 2.55 BP: 137/84 mmHg Indications: RVE, MR, h/o ablation, abn EKG, LVH, HTN, smoker. Ordered as a limited bubble study. Recent echo 08/27/24. Echo Enhancing Agent Indication: Rule Out Septal Defect Agent(s) / Amount(s) Used: Agitated Saline 15 cc Other Information Study Quality: Adequate Conclusion This is a limited TTE to evaluate for the presence of interatrial shunt. Agitated saline administration is performed. Limited windows are obtained. Agitated saline administration demonstrates no evidence of interatrial shunt at rest, or with sniff or Valsalva maneuvers. Electronically signed by : Janneth Santiago MD 09/17/2024 11:57:45
== END 2024-09-17 23:59 | disposition home or self-care (01) ==
LOC: RT 09:30
PROVIDERS: PCP Nurse Practitioner Family; Visit Provider Physician Assistant
DX: I51.7 Cardiomegaly (principal); Z98.890 Other specified postprocedural states
CPT/HCPCS: 93308

== ENCOUNTER 2024-09-26 14:46 | Outpatient (CLI) | payer OTHER, SELFPAY ==
--- NOTE | 2024-09-26 14:50 | XR_ITS ---
FINAL REPORT CLINICAL HISTORY: LEFT FOOT PAIN COMPARISON: None FINDINGS: LEFT FOOT Three views demonstrate no acute fracture or dislocation. The joint spaces appear normal. There is a tiny plantar spur. No acute soft tissue abnormality is seen. IMPRESSION: No acute bony abnormality. Reviewed, Interpreted and Dictated by Aramis Mcduffie MD Transcribed by Peggy Gillis Authenticated and [facility]
== END 2024-09-26 23:59 | disposition home or self-care (01) ==
LOC: RAD 14:47
PROVIDERS: PCP Nurse Practitioner Family; Visit Provider Nurse Practitioner Family
DX: M79.672 Pain in left foot (principal)
CPT/HCPCS: 73630

== ENCOUNTER 2025-03-11 07:49 | Outpatient (CLI) | payer OTHER, SELFPAY ==
--- OUTSIDE RECORDS SUMMARY | 2025-03-11 07:52 | XMS_ITS | Clinical Summary ---
Author Organization [facility] Address [address] [place] [address] Care Team Providers Care Social Problems Specialist Name Role Phone Silvio Roberts MD Primary Care Provider + [phone] Allergies No known active allergies Medications * This document contains information received from the source organization and may not represent a complete record from that organization. busPIRone (Buspar) 7.5 MG tablet Take 1 tablet (7.5 mg) by mouth 2 (two) times a day. Active desvenlafaxine (Pristiq) 50 MG 24 hr tablet Take 1 tablet (50 mg) by mouth 1 (one) time each day. Do not crush, chew, or split. Active hydroCHLOROthia zide (HYDRODiuril) 12.5 MG tablet Take 2 tablets (25 mg) by mouth 1 (one) time each day. Active hydroCHLOROthia zide (HYDRODiuril) 25 MG tablet Take 1 tablet (25 mg) by mouth 1 (one) time each day. 30 tablet 09/14/2023 Active oxyCODONE (Roxicodone) 5 MG immediate release tablet Take 1-2 tablets orally every 4 hours as needed for pain for the next 3 days. After that, take as needed. 40 tablet 02/02/2024 Active Active Problems Problem Noted Date Diagnosed Date Achilles tendon rupture, left, initial encounter 01/30/2024 Tachycardia, unspecified 11/09/2022 Tachyarrhythmia 11/09/2022 SVT (supraventricular tachycardia) 11/09/2022 Essential hypertension, benign 11/09/2022 Nicotine dependence 11/09/2022 Palpitations 11/09/2022 Elevated transaminase level 08/03/2013 Fatty liver 08/03/2013 Immunizations Immunization Administration Dates Next Due DTP / HiB 04/17/1997 HPV, Quadrivalent 01/19/2012 Hep A, ped/adol, 2 dose 01/19/2012 Hep B, Adolescent or Pediatric 04/17/1997 Influenza, Unspecified 03/17/2020,12/25/2019 Steve COVID-19 Vaccine (Blue Cap) 18+ 08/22/19 21 Meningococcal MCV4, Unspecified 01/19/2012 Moderna COVID-19 Vaccine (Jacker Feeder) 12+ years Tdap 12/25/2019,01/25/2008 Varicella 01/19/2012 Family History Medical History Relation Name Comments Gallbladder disease Father Hypertension Father Conversions - Other Mother Kidney c ysts Kidney disease Mother Pancreatitis Mother Malig Hyperthermia Neg Hx Pseudochol deficiency Neg Hx Relation Name Status Comments Father Mother Social History Tobacco Use Types Packs/Day Years Used Date Smoking Tobacco: Every Day Cigarettes 0.5 15.7 Started: 2009 Smokeless Tobacco: Never Tobacco Cessation:Ready to Q uit: Not Asked; Counseling Given: Not Answered Alcohol Use Standard Drinks/Week Comments Not Currently 1 (1 standard drink = 0.6 oz pur e alcohol) PHQ-2 Answer Date Recorded Patient Health Questionnaire-2 Score 0 06/25/2024 CAGE ASSESSMENT Answer Date Recorded Cage unable to access Not on file 09/14/2023 Maximum number of drinks you had on a given occasion in the last month? 0 drinks 09/14/2023 How many alcoholic Beverages do you typically drink in a week? 0 - 7 per week 09/14/2023 Have you ever felt you should CUT down on your d rinking? 0 09/14/2023 Have you been ANNOYED by peo ple criticizing your drinking? 0 09/14/2023 Have you felt GUILTY about your drinking? 0 09/14/2023 Have you had a drink first t tian in the morning ([employer]) to steady your nerves or to get rid of a hangover? 0 09/14/2023 CAGE Questionnaire Score 0 024 PHQ-2A Answer Date Recorded Patient Health Questionnaire-2 Score 0 11/12/2022 Sex and Gender Information Value Date Recorded Sex Assigned at Not on file Legal Sex Male 8:37 PM EDT Gender Identity Not on file Sexual Orientation Not on file Last Filed Vital Signs Vital Sign Reading Time Taken Comments Blood Pressure 158/86 06/25/2024 2:35 PM EST Pulse 75 02/02/2024 4:45 PM EDT Temperature 36.7 C (98.1 F) 02/02/2024 4:05 PM EDT Respiratory Rate 16 02/02/2024 4:45 PM EDT Oxygen Saturation 97% 02/02/2024 4:45 PM EDT Inhaled Oxygen Concentration - - Weight 132 kg (289 lb 14.5 oz) 06/25/2024 2:35 P M EST Height 190.5 cm (6' 3 ) 06/25/2024 2:35 PM EST Body Mass Index 36.24 06/25/2024 2:35 PM EST Plan of Treatment Health Maintenance Due Date Last Done Comments [facility]-/Child/Adol SDOH Screenings 1995 HPV Vaccines (2 - Male 3-dose series) 02/16/2012 01/19/2012 [facility]-Varicella Vaccines (2 of 2 - 13+ 2-dose series) 02/16/2012 01/19/2012 [facility]- SDOH Screenings 08/31/2013 [facility]-Adult SDOH Screenings 08/31/2013 [facility]-Pneumococcal Vaccine: Pediatrics (0 to 5 Years) and At-Risk Patients (6 to 49 Years) (1 of 2 - PCV) 08/31/2014 [facility]-Hepatitis B Vaccines (3 of 3 - 3-dose series) 11/30/2023 10/05/2023, 04/17/1997 [facility]-Hepatitis A Vaccines (2 of 2 - Risk 2-dose series) 04/05/2024 10/05/2023, 01/19/2012 [id number] Vaccine (3 - season) 2025 06/03/2021, 08/21/2020 [facility]-Influenza Vaccine (#1) 02/11/202504/23, 03/17/2020, 12/25/2019 [facility]-Depression Screening 06/25/2025 06/25/2024 [facility]-DTaP,Tdap,and Td Vaccines (5 - Td or Tdap) 04/23/2034 04/23/2024, 12/25/2019, 01/25/2008, Additional history exists [facility]-Zoster Vaccines (1 of 2) 08/31/2045 01/19/2012 [facility]-HIB Vaccines Completed 04/17/1997 [facility]-HIV Screening Completed 09/14/2023 [facility]-Hepatitis C Screening Completed 09/14/2023 [facility]-Obesity Intervention Completed 025, 04/09/2024, 03/07/2024, Additional history exists [facility]-IPV Vaccines Aged Out No longer e ligible based on patient's age to complete this topic [facility]-Rotavirus Vaccines Aged Out No lo nger eligible based on patient's age to complete this topic Procedures Procedure Name Priority Date/Time Associated Diagnosis Comments HEPATITIS C ANTIBODY - ED W/REFLEX TO HCV QUANT PCR STAT 09/14/2023 12:22 PM EDT ED HIV 1/2 ANTIBODY/ANTIGEN SCREEN WITH REFLEX TO HIV I/II DIFFERENTIATION STAT 09/14/2023 12:22 PM EDT from Last 3 Months or Most Recently Relevant to Health Maintenance Results * ED HIV 1/2 Antibody/Antigen Screen w/Reflex to HIV 1/2 Differentiation (09/14/2023 12:22 PM EDT) HIV 1 & 2 Antibody/Antigen Screen Non Reactive Non Reactive 09/14/2023 1:18 PM EDT [facility] Comment:Screening for HIV 1 & 2 antibodies, and P24 antigen is NONREACTIVE. No confirmatory testing is required. Blood Venous blood specimen / Unknown Venipuncture / Unknown 09/14/2023 12:22 PM EDT 09/14/2023 12:33 PM EDT us Sheryl Noble MD LAB BLOOD ORDERABLES Final [facility] [address] [place] [address] * Hepatitis C Antibody - ED (09/14/2023 12:22 PM EDT) Hepatitis C Antibody Negative Negative 09/14/2023 1:13 PM EDT [facility] Blood Venous blood specimen / Unknown Venipuncture / Unknown 09/14/2023 12:22 PM EDT 09/14/2023 12:32 PM EDT us Sheryl Noble MD LAB BLOOD ORDERABLES Final R esult [facility] [address] [place] [address] from Last 3 Months or Most Recently Relevant to Health Maintenance Insurance [employer] Advance Directives * Full Code (Latest Code Status on File) Date Activated Date Inactivated Comments 12/22/2022 11:14 AM 12/22/2022 6:37 PM Question Answer Comments Patient has decision-making capacity? Yes Care Teams Social Problems Specialist Relationship Specialty Start Date End Date Silvio Roberts MD [address] [place] [address] PCP - General 10/24/20
--- OUTSIDE RECORDS SUMMARY | 2025-03-11 07:52 | XMS_ITS | Continuity of Care Document ---
Author Organization [facility] [place] Address [address] [place] [address] Assessment No assessment recorded. Plan of Treatment Reminders Order Date Submit Date Provider Last Modified By Organization Details Last Modified Time Details Appointments OV PROC 30 025 09:45AM Buddy Chapa Jr, MD Not available Not available Not available Lab None record ed. Referral None record ed. Procedures None record ed. Surgeries None record ed. Imaging None record ed. Medication Orders None record ed. Patient TargetsNo targets recorded. Patient InstructionsNo instructions recorded. Reason for Referral None Reported. Procedures Surgical History Date Name Laterality Status Provider Name and Address Organization Details Recorded Time cholecystectomy completed [facility] & [place] 02/01/2025 13:10:53 tonsillectomy completed [facility] & [place] 02/01/2025 13:11:02 operative procedure on shoulder completed [facility] & [place] 02/01/2025 13:11:17 operation on heart completed [facility] & [place] 02/01/2025 13:12:12 repair of tendo achilles completed [facility] & [place] 02/01/2025 13:12:26 extraction of wisdom tooth completed [facility] & [place] 02/01/2025 13:12:32 Imaging Results None recorded. Procedure Notes None recorded. Medical Equipment None Reported. Allergies No known drug allergies Medications Name Sig Start Date Stop Date Status Note LastModified by Organization Details LastModified Time buspirone 5 mg tablet TAKE ONE TABLET BY MOUTH THREE TIMES DAILY active Not Available Not Available No t Available metronidazo le 500 mg tablet TAKE ONE TABLET BY MOUTH EVERY 8 HOURS FOR 13 DAYS -- FINISH ALL MEDICINE -- 02/01 completed Not Available Not Available Not Available ciprofloxac in 500 mg tablet TAKE ONE TABLET BY MOUTH TWICE DAILY FOR 13 DAYS -- FINISH ALL MEDICINE -- 02/01 completed Not Available Not Available Not Available ondansetron 4 mg disintegrat ing tablet DISSOLVE ONE TABLET UNDER THE TONGUE EVERY 6 HOURS NEEDED FOR NAUSEA AND VOMITING 02/01 completed Not Available Not Available Not Available amlodipine 10 mg-olmesart an 40 mg tablet TAKE ONE TABLET BY MOUTH EVERY DAY active Not Available Not Available No t Available desvenlafax ine succinate ER 50 mg tablet,exte nded release 24 hr TAKE ONE TABLET BY MOUTH EVERY DAY active Not Available Not Available No t Available aspirin 81 mg capsule Take 1 capsule every day by oral route. active Not Available Not Available No t Available Vitals Date Recorded Body height Body mass index (BMI) Body weight Provider Name and Address Organization Details Last Updated DateTime 02/01/2025 190.5 cm 35.5 kg/m2 196997.95 g [facility] 02/01/2025 13:09:38 Social History None recorded. Functional Status Question Answer Note LastModified by Organization D etails LastModified Time What is your level of alcohol consumption? None [email or web address] Information not available 02/01/2025 Mental Status None recorded. Family History Relationship Description Onset Age of this Age Resolved Age Notes LastModified by Organization Details LastModified Time Mother Kidney disease [email or web address] Not available 01/12 13:10:23 Father Hypertensive disorder [email or web address] Not available 01/12 13:10:32 Medical History Condition Response Heart Disease Y Past Encounters Encounter ID Performer Location Encounter Start Date Encounter Closed Date Diagnosis/Indication Diagnosis SNOMED-CT Code Diagnosis ICD10 Code Diagnosis IMO Codes Diagnosis Note [id number] Buddy Chapa Jr, MD [facility] [address] [address] 02/01/2025 13:03:25 02/01/2025 13:37:07 Consultation [id number] Z30.09 [id number] we discussed the operative procedure and complicati ons of vasectomy today. Patient read through the vasectomy materials today. We discussed anesthesia options. We discussed complicati ons such as scrotal hematoma, epididymit is and chronic testicular pain has possible complicati ons. We discussed that patient is not considered sterile until he brings back 2 semen samples we should continue contracept ion until then. Patient would like to proceed with the vasectomy under local anesthetic . We will set this up at his earliest convenien e. Health Concerns Section Related Observation LastModified by Organization Detai ls LastModified Time None Recorded Concern Status LastModified by Organization Details LastModified Time None Recorded Payers Encounter Date Sequence Insurance Name Policy Number Policy Gu Covered Member ID Gu Member ID Guarantor Name 02/01/2025 1 [facility] [id number] Frank Sofia [id number] Frank Sofia Notes Date Note Type Note Provider Name and Address Organization Details Recorded Time 02/01/2025 text/html ROS as noted in the HPI Patient is 29-year-old white male who presents with his for vasectomy consultation. They have 4 kids together and wished to proceed with sterilization. Patient read over the vasectomy materials today. He denies any scrotal trauma or testicular abnormalities. Buddy Chapa Jr, MD [address] [place] [address], [address], [place], [address], [facility] [place] & [place] 02/01/2025 13:40:00
--- OUTSIDE RECORDS SUMMARY | 2025-03-11 07:52 | XMS_ITS | Clinical Summary ---
Author Organization [facility] Address [address] [place] [address] Care Team Providers Care Assembly Line Upholsterer Name Role Phone Provider, No Known Primary Care Provider Unavail able Social History Tobacco Use Types Packs/Day Years Used Date Smoking Tobacco: Never Assessed Abuse Screen Answer Date Recorded Unsafe at Home or Work/School Not on file Feels Threatened by Someone? Not on file 03/2023 Does Anyone Keep You from Co ntacting Others or Doint Things Outside the Home? Not on file 03/22/2023 Physical Sign of Abuse Present Not on file 1 Housing Stability Answer Date Recorded Current Living Arrangements Not on file 03/13 Potentially Unsafe Housing Conditions Not on kate e 03/22/2023 Family and Community Support Answer Jerzy e Recorded Help with Day-to-Day Activities Not on file 03/22/2023 Lonely or Isolated Not on file 03/22/2023 Employment Answer Date Recorded Do you want help finding or keeping work or a camilo b? Not on file 03/22/2023 Disabilities Answer Date Recorded Concentrating, Remembering, or Making Decisions Difficulty Not on file 03/22/2023 Doing Errands Independently Difficulty Not on fi le 03/22/2023 Education Answer Date Recorded Help with school or training? Not on file Preferred Language Not on file 03/22/2023 Sex and Gender Information Value Date Recorded Sex Assigned at Not on file Legal Sex Male 1:50 PM EDT Gender Identity Not on file Sexual Orientation Not on file Plan of Treatment Health Maintenance Due Date Last Done Comments ANNUAL PHYSICAL 1995 HEPATITIS C SCREENING 1995 TDAP/TD VACCINES (1 - Tdap) 08/31/2014 INFLUENZA VACCINE 01/11/2025 Pneumococcal Vaccine 0-49 Aged Out No longer eligible based on patient's age to complete this topic Care Teams Assembly Line Upholsterer Relationship Specialty Start Date End Date [place], [place] [address] PCP - General 08/21/21
--- OUTSIDE RECORDS SUMMARY | 2025-03-11 07:52 | XMS_ITS | Data Portability ---
Author Organization [facility] & [place], [facility] [place] Address [address] [place] [address] Assessment No assessment recorded. Plan of Treatment [...] Address Organization Details Recorded Time cholecystectomy completed [facility] & [place] 02/01/2025 13:10:53 tonsillectomy completed [facility] & [place] 02/01/2025 13:11:02 operative procedure on shoulder completed [facility] & [place] 02/01/2025 13:11:17 operation on heart completed [facility] & [place] 02/01/2025 13:12:12 repair of tendo achilles completed [facility] & [place] 02/01/2025 13:12:26 extraction of wisdom tooth completed [facility] & [place] 02/01/2025 13:12:32 Imaging Results None recorded. Procedure [...] Updated DateTime 02/01/2025 190.5 cm 35.5 kg/m2 466111.95 g [facility] 02/01/2025 13:09:38 Social History None recorded. Functional Status Question Answer Note LastModified by Organization D etails LastModified Time What is your level of alcohol consumption? None Information not available 02/01/2025 Mental Status None recorded. Family History Relationship Description Onset Age of this Age Resolved Age Notes LastModified by Organization Details LastModified Time Mother Kidney disease [email or web address] Not available 01/12 13:10:23 Father Hypertensive disorder [email or web address] Not available 01/12 13:10:32 Medical History Condition Response Heart Disease Y Past Encounters Encounter ID Performer Location Encounter Start Date Encounter Closed Date Diagnosis/Indication Diagnosis SNOMED-CT Code Diagnosis ICD10 Code Diagnosis IMO Codes Diagnosis Note [id number] Buddy Chapa Jr, MD [facility] [address] [address] 02/01/2025 13:03:25 02/01/2025 13:37:07 Consultation [id number] Z30.09 [id number] we discussed the operative procedure and complicati [...] by Organization Details LastModified Time None Recorded Advance Directives Directive None Recorded Payers Insurance Date Sequence Insurance Name Policy Number Policy Gu Covered Member ID Gu Member ID Guarantor Name 02/01/2025 1 [facility] [id number] Frank Sofia [id number] Frank Sofia Notes Date Note Type Note [...] or testicular abnormalities. Buddy Chapa Jr, MD [address] [place] [address], [address], [place], [address], [facility] [place] & [place] 02/01/2025 13:40:00
[2025-03-13 15:23] LABS: Pancreatic Elastase, Fecal >800 (>200)
== END 2025-03-11 23:59 | disposition home or self-care (01) ==
LOC: LAB 07:50
PROVIDERS: PCP Nurse Practitioner Family; Visit Provider Nurse Practitioner Family
DX: R14.0 Abdominal distension (gaseous) (principal)
CPT/HCPCS: 82653